=== PATIENT | male | born 1930 | race Caucasian/White ===

== ENCOUNTER → 2016-12-17 | Outpatient (CLI) | payer MEDICARE ==
[~2016-12-17] MED LIST: ACET325T PO; ALBUAER3 INH; ASPI325T PO; CALC500C16 CHEW; CARV6.25 PO; COMMODE 3-IN-11 MIS; COZA50TA PO; ENOX40P SQ; FERR324T4 PO; FERR325T PO; FEXO1TAB41 PO; FOLI1TAB4 PO; FOLI1TAB6 PO; GUAI1TAB18; GUAI400T8; GUAI600T34 PO; HYDR-3516 PO; IPRASOL NEB; LORA-520 PO; MUCI600T PO; NORC5TAB PO; OXYGENTANK NAS.CANULA; POLY17S PO; SPIRCAP INH; SYMB80AE INH; TAMS5CAP PO; TYLE325T PO; VENTAER INH; VITA100T PO; VITA20004 PO; WALKER WHEELS/F1 MIS; WHEEMIS3
[2016-12-17 16:28] LABS: AUTOMATED NEUTROPHIL # 1.3 TH/MM3 (1.8-7.7); BASOPHIL % 0.6 % (0.0-2.0); EOSINOPHIL # 0.1 TH/MM3 (0-0.4); EOSINOPHIL % 3.3 % (0.0-4.0); HEMATOCRIT 31.9 % (39.0-51.0); LYMPH % 40.9 % (9.0-44.0); LYMPHOCYTE # 1.3 TH/MM3 (1.0-4.8); MEAN CELL VOLUME 103.8 FL (80.0-100.0); MEAN CORPUSCULAR HEMOGLOBIN 35.4 PG (27.0-34.0); MEAN CORPUSCULAR HGB CONC 34.1 % (32.0-36.0); MONO % 16.2 % (0.0-8.0); PLATELET COUNT 70 TH/MM3 (150-450); RED BLOOD COUNT 3.07 MIL/MM3 (4.50-5.90); RED CELL DISTRIBUTION WIDTH 14.9 % (11.6-17.2); WHITE BLOOD COUNT 3.2 TH/MM3 (4.0-11.0)
[2016-12-17 16:30] LABS: HEMO FLAGS AUTO DIFF
[2016-12-17 17:04] LABS: ACANTHOCYTES OCC (NORMAL); OVALOCYTES 1+ (NORMAL); PLATELET ESTIMATE SMEAR LOW (NORMAL); PLATELET MORPHOLOGY NORMAL (NORMAL); SCAN/DIFF AUTO DIFF CONFIRMED
== END ==
LOC: PLAB 12:09
PROVIDERS: ATTEND Family Medicine
DX: D51.9 Vitamin B12 deficiency anemia, unspecified (principal)
CPT/HCPCS: 36415; 82607; 85025

== ENCOUNTER → 2017-03-17 | Outpatient (CLI) | payer MEDICARE ==
[2017-03-17 15:36] LABS: HEMATOCRIT 32.4 % (39.0-51.0); MEAN CELL VOLUME 105.3 FL (80.0-100.0); MEAN CORPUSCULAR HEMOGLOBIN 34.4 PG (27.0-34.0); MEAN CORPUSCULAR HGB CONC 32.7 % (32.0-36.0); PLATELET COUNT 72 TH/MM3 (150-450); RED BLOOD COUNT 3.08 MIL/MM3 (4.50-5.90); RED CELL DISTRIBUTION WIDTH 14.2 % (11.6-17.2); WHITE BLOOD COUNT 4.7 TH/MM3 (4.0-11.0)
[2017-03-17 15:57] LABS: REVIEW FLAG FINAL
== END ==
LOC: PLAB 14:02
PROVIDERS: ATTEND Family Medicine
DX: D64.9 Anemia, unspecified (principal)
CPT/HCPCS: 36415; 85027; G0439

== ENCOUNTER 2017-04-25 08:56 | Emergency (ER) | payer MEDICARE ==
[2017-04-25] VITALS (7 sets, daily range): BP systolic 129–150; BP diastolic 58–68; PULSE 65–80; RESP 17–27; TEMP 97.6; O2SAT 93–100
[~2017-04-25] VITALS: Ht 185.4 cm; Wt 62.0 kg
[~2017-04-25 08:56] MED LIST changes: -COMMODE 3-IN-11 MIS; -ENOX40P SQ; -FERR324T4 PO; -FOLI1TAB6 PO; -GUAI1TAB18; -GUAI400T8; -GUAI600T34 PO; -HYDR-3516 PO; -NORC5TAB PO; -OXYGENTANK NAS.CANULA; -TYLE325T PO; -VITA100T PO; -WALKER WHEELS/F1 MIS; -WHEEMIS3
[2017-04-25] MEDS ORDERED: GUAI400T8 (09:27)
[2017-04-25] MEDS ORDERED: TYLE325T PO (09:27)
[2017-04-25] MEDS ORDERED: GUAI1TAB18 (09:27)
[2017-04-25] MEDS ORDERED: GUAI600T34 PO (09:27)
[2017-04-25] MEDS ORDERED: FOLI1TAB6 PO (09:27)
[2017-04-25] MEDS ORDERED: FERR324T4 PO (09:28)
[2017-04-25] MEDS ORDERED: ONDANSETRON HCL 4 MG/2 ML VIAL IVP ONE (09:30)
[2017-04-25] MEDS ORDERED: SODIUM CHLORIDE 0.9% FLUSH 10 ML FLUSH IVF PRN (09:30)
[2017-04-25] MEDS ORDERED: SODIUM CHLORID 0.9% 500 ML INJ 500 ML IV ONE (09:30)
[2017-04-25 09:43] LABS: AUTOMATED NEUTROPHIL # 1.3 TH/MM3 (1.8-7.7); BASOPHIL % 0.5 % (0.0-2.0); EOSINOPHIL # 0.1 TH/MM3 (0-0.4); EOSINOPHIL % 2.5 % (0.0-4.0); HEMATOCRIT 30.4 % (39.0-51.0); LYMPH % 35.4 % (9.0-44.0); MEAN CELL VOLUME 103.7 FL (80.0-100.0); MEAN CORPUSCULAR HEMOGLOBIN 34.8 PG (27.0-34.0); MEAN CORPUSCULAR HGB CONC 33.6 % (32.0-36.0); MONO % 17.9 % (0.0-8.0); NEUT % 43.7 % (16.0-70.0); PLATELET COUNT 61 TH/MM3 (150-450); RED BLOOD COUNT 2.94 MIL/MM3 (4.50-5.90); RED CELL DISTRIBUTION WIDTH 14.3 % (11.6-17.2); WHITE BLOOD COUNT 2.9 TH/MM3 (4.0-11.0)
[2017-04-25 09:47] LABS: HEMO FLAGS AUTO DIFF
--- NOTE | 2017-04-25 09:59 | PD ---
HPI Chief Complaint: General Weakness Time Seen by Provider: 09:15 Travel History International Travel<30 days: No Contact w/Intl Traveler<30days: No Traveled to known affect area: No History of Present Illness HPI The patient is a 86-year-old male who presents emergency department for feeling "woozy ". The patient was at an AA meeting earlier today when he suddenly fell "woozy ", walked outside and felt somewhat lightheaded. The patient states he then sat down but his symptoms persisted, therefore, EMS was notified and transfer the patient to the emergency department. The patient also states he had mild nausea but denied any chest pain, shortness breath, vomiting, or abdominal pain. He denied any associated diaphoresis. The patient symptoms have mostly resolved since she arrived in the emergency department except for mild nausea. Symptoms are moderate, there are no current alleviating factors, his symptoms of mostly self alleviated. PFSH Past Medical History Cancer: No Cardiovascular Problems: Yes Congestive Heart Failure: Yes COPD: Yes Diabetes: No Diminished Hearing: No Endocrine: No Gastrointestinal Disorders: Yes ("CHRONIC CONSTIPATION) Genitourinary: Yes (PROSTATE) Hepatitis: No Hiatal Hernia: No Hypertension: Yes Immune Disorder: No Implanted Vascular Access Dvce: No Musculoskeletal: No Neurologic: No Psychiatric: No Reproductive: No Respiratory: Yes Thyroid Disease: No PNEUMOCCOCAL Vaccine (Year): 1 Past Surgical History Abdominal Surgery: Yes (HERNIA REPAIR X2) Eye Surgery: Yes (BILATERAL CATARACTS) Genitourinary Surgery: Yes (TURP) Joint Replacement: Yes (hip replasement right ) Oral Surgery: Yes (tonsillectomy) Pacemaker: Yes Tonsillectomy: Yes Other Surgery: Yes Social History Alcohol Use: No Tobacco Use: Yes Substance Use: No Allergies-Medications (Allergen,Severity, Reaction): Coded Allergies: No Known Allergies (Verified , 04/25/17) Reported Meds & Prescriptions Reported Meds & Active Scripts Active Vitamin B-12 ER (Cyanocobalamin) 2,000 Mcg Tab 2,000 Mcg PO DAILY Take one tab daily 30 minutes before a meal Flomax (Tamsulosin HCl) 0.4 Mg Cap 0.4 Mg PO BID 30 Days Polyethylene Glycol 3350 Powder (Polyethylene Glycol) 17 Gm Pow 17 Gm PO DAILY 14 Days Cozaar (Losartan Potassium) 50 Mg Tab 50 Mg PO BID 30 Days Duoneb (Ipratropium-Albuterol Neb) 0.5-2.5 Mg/3 Ml Neb 1 Ampule NEB Q6HR NEB PRN 30 Days Coreg (Carvedilol) 6.25 Mg Tab 6.25 Mg PO BID 30 Days Calcium Carbonate (Antacid) 500 Mg Chew 500 Mg CHEW Q12HR 30 Days Symbicort Inh (Budesonide/Formoterol Fumarate) 80-4.5 Mcg/Act Aero 2 Puff INH BID 30 Days Ventolin Hfa 18 GM Inh (Albuterol Sulfate) 90 Mcg/Act Aer 2 Puff INH QID 30 Days Reported Ferrous Sulfate DR (Ferrous Sulfate) 324 Mg Tabdr 324 Mg PO DAILY Guaifenesin ER (Guaifenesin) 600 Mg Tab.er.12h 1 Tab PO BID Folic Acid 1 Mg Tablet 1 Tab PO DAILY Tylenol (Acetaminophen) 325 Mg Tab 325 Mg PO Q6H PRN Proair Hfa 8.5 GM Inh (Albuterol Sulfate) 90 Mcg/Act Aer 2 Puff INH Q4-6H PRN 108 mcg/actuation Allergy (Loratadine) 10 Mg Tab 10 Mg PO DIRECTED Review of Systems Except as stated in HPI: all other systems reviewed are Neg General / Constitutional: No: Fever HENT: Positive: Lightheadedness Cardiovascular: No: Chest Pain or Discomfort, Palpitations, Irregular Rhythm, Tachycardia, Diaphoresis, Syncope Respiratory: No: Shortness of Breath Gastrointestinal: Positive: Nausea, No: Vomiting, Abdominal Pain Musculoskeletal: No: Weakness Neurologic: No: Weakness, Headache, Change in Mentation Physical Exam Narrative GENERAL: Awake, alert, very pleasant 86-year-old male who appears his stated age and is in no acute respiratory distress. SKIN: Focused skin assessment warm/dry. HEAD: Atraumatic. Normocephalic. EYES: Pupils equal and round. No scleral icterus. No injection or drainage. ENT: No nasal bleeding or discharge. Mucous membranes pink and moist. NECK: Trachea midline. No JVD. CARDIOVASCULAR: Regular rate and rhythm. No murmur appreciated. Heart rate in the 60s. Pacemaker in place left chest wall. RESPIRATORY: No accessory muscle use. Clear to auscultation. Breath sounds equal bilaterally. GASTROINTESTINAL: Abdomen soft, non-tender, nondistended. No rebound tenderness. MUSCULOSKELETAL: No obvious deformities. No clubbing. No cyanosis. No edema. NEUROLOGICAL: Awake and alert. No obvious cranial nerve deficits. Motor grossly within normal limits. Normal speech. PSYCHIATRIC: Appropriate mood and affect; insight and judgment normal. Data Data Last Documented VS Vital Signs Date Time Temp Pulse Resp B/P Pulse Ox O2 Delivery O2 Flow Rate FiO2 04/25/17 09:34 98 Nasal Cannula 2 04/25/17 09:30 65 19 70 24 77 27 04/25/17 09:04 97.6 Orders Complete Blood Count With Diff (04/25/17:24) Comprehensive Metabolic Panel (04/25/17 09:24) Magnesium (Mg) (04/25/17:24) Ckmb (Isoenzyme) Profile (04/25/17:24) Troponin I (04/25/17:24) Ecg Monitoring (04/25/17:24) Iv Access Insert/Monitor (04/25/17:24) Oximetry (04/25/17 09:24) Ondansetron Inj (Zofran Inj) (04/25/17 09:30) Sodium Chloride 0.9% Flush (Ns Flush) (04/25/17 09:30) Orthostatic Vital Signs (04/25/17 09:24) Sodium Chlorid 0.9% 500 Ml Inj (Ns 500 M (04/25/17 09:30) Labs Laboratory Tests Test 04/25/17 09:20 White Blood Count 2.9 TH/MM3 Red Blood Count 2.94 MIL/MM3 Hemoglobin 10.2 GM/DL Hematocrit 30.4 % Mean Corpuscular Volume 103.7 FL Mean Corpuscular Hemoglobin 34.8 PG Mean Corpuscular Hemoglobin 33.6 % Concent Red Cell Distribution Width 14.3 % Platelet Count 61 TH/MM3 Mean Platelet Volume 6.9 FL Neutrophils (%) (Auto) 43.7 % Lymphocytes (%) (Auto) 35.4 % Monocytes (%) (Auto) 17.9 % Eosinophils (%) (Auto) 2.5 % Basophils (%) (Auto) 0.5 % Neutrophils # (Auto) 1.3 TH/MM3 Lymphocytes # (Auto) 1.0 TH/MM3 Monocytes # (Auto) 0.5 TH/MM3 Eosinophils # (Auto) 0.1 TH/MM3 Basophils # (Auto) 0.0 TH/MM3 CBC Comment AUTO DIFF Differential Comment AUTO DIFF CONFIRMED Sodium Level 132 MEQ/L Potassium Level 4.5 MEQ/L Chloride Level 96 MEQ/L Carbon Dioxide Level 32.0 MEQ/L Anion Gap 4 MEQ/L Blood Urea Nitrogen 14 MG/DL Creatinine 0.84 MG/DL Estimat Glomerular Filtration 87 ML/MIN Rate Random Glucose 115 MG/DL Calcium Level 8.1 MG/DL Magnesium Level 2.3 MG/DL Total Bilirubin 0.5 MG/DL Aspartate Amino Transf 17 U/L (AST/SGOT) Alanine Aminotransferase 15 U/L (ALT/SGPT) Alkaline Phosphatase 53 U/L Total Creatine Kinase 61 U/L Troponin I 0.02 NG/ML Total Protein 6.1 GM/DL Albumin 3.0 GM/DL MDM Medical Decision Making Medical Screen Exam Complete: Yes Emergency Medical Condition: Yes Medical Record Reviewed: Yes Interpretation(s) EKG reveals electronic atrial pacemaker an electronic ventricular pacemaker paced rhythm. Laboratory Tests Test 04/25/17 09:20 White Blood Count 2.9 TH/MM3 Red Blood Count 2.94 MIL/MM3 Hemoglobin 10.2 GM/DL Hematocrit 30.4 % Mean Corpuscular Volume 103.7 FL Mean Corpuscular Hemoglobin 34.8 PG Mean Corpuscular Hemoglobin 33.6 % Concent Red Cell Distribution Width 14.3 % Platelet Count 61 TH/MM3 Mean Platelet Volume 6.9 FL Neutrophils (%) (Auto) 43.7 % Lymphocytes (%) (Auto) 35.4 % Monocytes (%) (Auto) 17.9 % Eosinophils (%) (Auto) 2.5 % Basophils (%) (Auto) 0.5 % Neutrophils # (Auto) 1.3 TH/MM3 Lymphocytes # (Auto) 1.0 TH/MM3 Monocytes # (Auto) 0.5 TH/MM3 Eosinophils # (Auto) 0.1 TH/MM3 Basophils # (Auto) 0.0 TH/MM3 CBC Comment AUTO DIFF Differential Comment AUTO DIFF CONFIRMED Sodium Level 132 MEQ/L Potassium Level 4.5 MEQ/L Chloride Level 96 MEQ/L Carbon Dioxide Level 32.0 MEQ/L Anion Gap 4 MEQ/L Blood Urea Nitrogen 14 MG/DL Creatinine 0.84 MG/DL Estimat Glomerular Filtration 87 ML/MIN Rate Random Glucose 115 MG/DL Calcium Level 8.1 MG/DL Magnesium Level 2.3 MG/DL Total Bilirubin 0.5 MG/DL Aspartate Amino Transf 17 U/L (AST/SGOT) Alanine Aminotransferase 15 U/L (ALT/SGPT) Alkaline Phosphatase 53 U/L Total Creatine Kinase 61 U/L Troponin I 0.02 NG/ML Total Protein 6.1 GM/DL Albumin 3.0 GM/DL Differential Diagnosis Differential diagnosis includes dehydration, vasovagal episode, left foot abnormality, acute coronary syndrome, vertigo, arrhythmia. Narrative Course IV was established, labs are drawn and sent, and the patient was placed on cardiac telemetry monitoring and continuous pulse oximetry monitoring. EKG was ordered and interpreted. Orthostatic vital signs were obtained. The patient was administered IV fluids. The patient has pancytopenia with a white count 0.9 , hemoglobin and the 10 range and platelets of 61. I reviewed the patient's EMR , he has a history of similar labs in the past, this appears chronic and not acute. The patient has seen a captain's assistant/oncologist, Dr. Rock in the past and has a history of B-12 deficiency as well as transient leukopenia and chronic anemia and thrombocytopenia. Laboratory evaluation otherwise is unremarkable. The patient was reevaluated at 10:50 AM. The patient's symptoms had resolved. Friends in the room stated that when EMS first arrived the patient's systolic blood pressure was in the 80s, his systolic pressure is now on the 130s and he has no symptoms. Therefore, the patient was given a trial of ambulation. The patient was able to ambulate without difficulty. He will be provided a copy of his labs and is advised to follow-up with his primary physician, Dr. Julissa Alcala, this week. Diagnosis Primary Impression: Pre-syncope Additional Impression: Pancytopenia Additional Instructions: Please provide a patient a copy of his labs at discharge. Follow-up with your primary physician. Return if symptoms worsen or progress. Med/Other Pt SpecificInfo: No Change to Meds Disposition: 01 DISCHARGE HOME Condition: Stable Carlos Be MD Apr 25, 2017 09:59
[2017-04-25 10:04] LABS: ALT (GPT) 15 U/L (12-78); ANION GAP 4 MEQ/L (5-15); AST (GOT) 17 U/L (15-37); BLOOD UREA NITROGEN 14 MG/DL (7-18); CHLORIDE 96 MEQ/L (98-107); GLOMERULAR FILTRATION RATE 87 ML/MIN (>89); MAGNESIUM 2.3 MG/DL (1.5-2.5); POTASSIUM 4.5 MEQ/L (3.5-5.1); SODIUM (NA) 132 MEQ/L (136-145)
[2017-04-25 10:08] LABS: ALKALINE PHOSPHATASE 53 U/L (45-117); TOTAL BILIRUBIN ADULT 0.5 MG/DL (0.2-1.0)
[2017-04-25 10:17] LABS: SCAN/DIFF AUTO DIFF CONFIRMED
[2017-04-25 10:35] LABS: CREATINE KINASE 61 U/L (39-308)
--- NOTE | 2017-04-25 13:00 | EKG ---
Date Performed: 04/25/2017 Time Performed: 09:08:10 PTAGE: 86 years EKG: ELECTRONIC ATRIAL PACEMAKER ELECTRONIC VENTRICULAR PACEMAKER ABNORMAL RHYTHM ECG INTERPRETA TION BASED ON A DEFAULT AGE OF 40 YEARS PREVIOUS TRACING : 09/30/2016 20.50 compared to the previous EKG premature ventricular c omplexes new DOCTOR: Fam Farmer Interpretating Date/Time 04/25/2017 12:59:00
== END 2017-04-25 11:45 | disposition home or self-care (01) ==
LOC: NEPE 08:56
DX: R55 Syncope and collapse (principal); D61.818 Other pancytopenia; I10 Essential (primary) hypertension; I50.9 Heart failure, unspecified; J44.9 Chronic obstructive pulmonary disease, unspecified; Z72.0 Tobacco use
CPT/HCPCS: 80053; 82550; 83735; 84484; 85025; 93005; 96361; 96374; 99285; J2405; J7040

== ENCOUNTER 2017-05-16 07:37 | Emergency (ER) | payer MEDICARE ==
[~2017-05-16] VITALS: Ht 185.4 cm; Wt 60.6 kg
[~2017-05-16 07:37] MED LIST changes: -ACET325T PO; -ASPI325T PO; +FERR324T4 PO; -FERR325T PO; -FEXO1TAB41 PO; -FOLI1TAB4 PO; +FOLI1TAB6 PO; +GUAI600T34 PO; -MUCI600T PO; -SPIRCAP INH; +TYLE325T PO
[2017-05-16 07:48] VITALS: BP 126/72; PULSE 75; RESP 16; TEMP 97.6; O2SAT 100
[2017-05-16] MEDS ORDERED: CARV3.12 PO (08:02)
[2017-05-16] MEDS ORDERED: LOSA25TA PO (08:02)
[2017-05-16 08:09] LABS: GLUCOSE,URINE NEG (NEG); KETONE, URINE NEG (NEG); NITRITE,URINE NEG (NEG)
--- NOTE | 2017-05-16 08:09 | PD ---
HPI Chief Complaint: Complaint Time Seen by Provider: 08:01 Travel History International Travel<30 days: No Contact w/Intl Traveler<30days: No Traveled to known affect area: No History of Present Illness HPI 86yo M with PMH of COPD, pacemaker, BPH s/p TURP presents to the ED with c/o dysuria and urinary frequency for 3 days. Denies any fever, hematuria, n/v, abdominal pain, penile discharge, rash, chest pain, sob, focal weakness or numbness. Pt has a urologist he follows with. PFSH Past Medical History Cancer: No Cardiovascular Problems: Yes (pacemaker, on b/p meds) Congestive Heart Failure: Yes COPD: Yes Diabetes: No Diminished Hearing: No Endocrine: No Gastrointestinal Disorders: Yes ("CHRONIC CONSTIPATION) Genitourinary: Yes (PROSTATE) Hepatitis: No Hiatal Hernia: No Hypertension: Yes Immune Disorder: No Implanted Vascular Access Dvce: No Musculoskeletal: No Neurologic: No Psychiatric: No Reproductive: No Respiratory: Yes (copd ) Thyroid Disease: No PNEUMOCCOCAL Vaccine (Year): 1 Past Surgical History Abdominal Surgery: Yes (HERNIA REPAIR X2) Eye Surgery: Yes (BILATERAL CATARACTS) Genitourinary Surgery: Yes (TURP) Joint Replacement: Yes (hip replacement right ) Oral Surgery: Yes (tonsillectomy) Pacemaker: Yes Tonsillectomy: Yes Other Surgery: Yes Social History Alcohol Use: No Tobacco Use: No Substance Use: No Allergies-Medications (Allergen,Severity, Reaction): Coded Allergies: No Known Allergies (Verified , 05/16/17) Reported Meds & Prescriptions Reported Meds & Active Scripts Active Vitamin B-12 ER (Cyanocobalamin) 2,000 Mcg Tab 2,000 Mcg PO DAILY Take one tab daily 30 minutes before a meal Flomax (Tamsulosin HCl) 0.4 Mg Cap 0.4 Mg PO BID 30 Days Polyethylene Glycol 3350 Powder (Polyethylene Glycol) 17 Gm Pow 17 Gm PO DAILY 14 Days Duoneb (Ipratropium-Albuterol Neb) 0.5-2.5 Mg/3 Ml Neb 1 Ampule NEB Q6HR NEB PRN 30 Days Calcium Carbonate (Antacid) 500 Mg Chew 500 Mg CHEW Q12HR 30 Days Symbicort Inh (Budesonide/Formoterol Fumarate) 80-4.5 Mcg/Act Aero 2 Puff INH BID 30 Days Ventolin Hfa 18 GM Inh (Albuterol Sulfate) 90 Mcg/Act Aer 2 Puff INH QID 30 Days Reported Carvedilol 3.125 Mg Tab 3.125 Mg PO BID Losartan (Losartan Potassium) 25 Mg Tab 25 Mg PO BID Ferrous Sulfate DR (Ferrous Sulfate) 324 Mg Tabdr 324 Mg PO DAILY Guaifenesin ER (Guaifenesin) 600 Mg Tab.er.12h 1 Tab PO BID Folic Acid 1 Mg Tablet 1 Tab PO DAILY Proair Hfa 8.5 GM Inh (Albuterol Sulfate) 90 Mcg/Act Aer 2 Puff INH Q4-6H PRN 108 mcg/actuation Allergy (Loratadine) 10 Mg Tab 10 Mg PO DIRECTED Review of Systems Except as stated in HPI: all other systems reviewed are Neg Physical Exam Narrative GENERAL: 86yo M not in distress. SKIN: Focused skin assessment warm/dry. HEAD: Atraumatic. Normocephalic. EYES: Pupils equal and round. No scleral icterus. No injection or drainage. ENT: No nasal bleeding or discharge. Mucous membranes pink and moist. NECK: Trachea midline. No JVD. CARDIOVASCULAR: Regular rate and rhythm. No murmur appreciated. RESPIRATORY: No accessory muscle use. Clear to auscultation. Breath sounds equal bilaterally. GASTROINTESTINAL: Abdomen soft, non-tender, nondistended. MUSCULOSKELETAL: No obvious deformities. No clubbing. No cyanosis. No edema. NEUROLOGICAL: Awake and alert. No obvious cranial nerve deficits. Motor grossly within normal limits. Normal speech. PSYCHIATRIC: Appropriate mood and affect; insight and judgment normal. Data Data Last Documented VS Vital Signs Date Time Temp Pulse Resp B/P Pulse Ox O2 Delivery O2 Flow Rate FiO2 05/16/17 07:48 97.6 75 16 126/72 100 Orders Urinalysis - C+S If Indicated (05/16/17 08:03) Labs Laboratory Tests Test 05/16/17 07:50 Urine Collection Type CLEAN CATCH Urine Color YELLOW Urine Turbidity CLEAR Urine pH 6.0 Urine Specific [place] 1.013 Urine Protein NEG mg/dL Urine Glucose (UA) NEG mg/dL Urine Ketones NEG mg/dL Urine Occult Blood MOD Urine Nitrite NEG Urine Bilirubin NEG Urine Leukocyte Esterase NEG Urine RBC 20-24 /hpf Urine Squamous Epithelial 0-5 /hpf Cells Microscopic Urinalysis Comment CULT NOT INDICATED Urine Collection Time 07:50 [facility] Medical Decision Making Medical Screen Exam Complete: Yes Emergency Medical Condition: Yes Differential Diagnosis UTI vs. prostatitis Narrative Course 86yo M with dysuria and urinary frequency for 3 days. No systemic complaints. Pt is well appearing. VS stable. UA showed moderate blood. Urine RBC 20-24. No leukocyte or nitrite. However, pt is symptomatic so cover pt with antibiotics and have pt follow up with his urologist for hematuria. Diagnosis Primary Impression: Hematuria Qualified Code: R31.9 - Hematuria, unspecified type Patient Instructions: General Instructions Departure Forms: Tests/Procedures Additional Instructions: Please follow up with your urologist regarding blood in your urine seen on urinalysis. Return to the ED if symptoms worsen. Med/Other Pt SpecificInfo: Prescription(s) given Scripts Cephalexin (Keflex)500 Mg Azp307 Mg PO Q12H 5 Days Ref 0 Prov:Christie Santos DO 05/16/17 Disposition: 01 DISCHARGE HOME Condition: Stable Christie Santos DO May 16, 2017 08:09
[2017-05-16 08:14] LABS: BLOOD, URINE MOD (NEG)
[2017-05-16 08:15] LABS: METHOD OF COLLECTION CLEAN CATCH; URINE COLOR YELLOW (YELLW/STRAW)
[2017-05-16 08:16] LABS: COMMENT (UR) CULT NOT INDICATED; CULTURE IF INDICATED CULT NOT INDICATED; SQUAMOUS EPITHELIAL CELL URINE 0-5 /hpf (0-5)
[2017-05-16] MEDS ORDERED: CEPH-460 PO (08:44)
[2017-05-26] MEDS ORDERED: TAMS5CAP PO ×2 (12:27→12:33)
== END 2017-05-16 08:53 | disposition home or self-care (01) ==
LOC: PHED 07:37
DX: R31.9 Hematuria, unspecified (principal)
CPT/HCPCS: 81001; 99283

== ENCOUNTER → 2017-12-23 | Outpatient (CLI) | payer MEDICARE ==
[~2017-12-23] MED LIST changes: +CARV3.12 PO; -CARV6.25 PO; -COZA50TA PO; +LOSA25TA PO; +MEDR4PAK PO; +TRAM50TA PO; -TYLE325T PO
[2017-12-23 13:52] LABS: CREATININE 0.74 MG/DL (0.60-1.30)
== END ==
LOC: PLAB 10:07
DX: Z01.812 Encounter for preprocedural laboratory examination (principal)
CPT/HCPCS: 36415; 82565; 84520

== ENCOUNTER 2018-03-16 13:11 | Inpatient (IN) | payer MEDICARE ==
[2018-03-16] VITALS (13 sets, daily range): BP systolic 71–170; BP diastolic 42–67; PULSE 60–103; RESP 16–20; TEMP 97.1; O2SAT 95–100
[~2018-03-16] VITALS: Ht 185.4 cm; Wt 56.9 kg
[2018-03-16] MEDS ORDERED: SODIUM CHLORIDE 0.9% FLUSH 10 ML FLUSH IV FLUSH PRN ×2 (13:45→15:45)
[2018-03-16] MEDS ORDERED: methylPREDNISolone SOD SUCC 125 MG/2 ML VIAL IV PUSH ONE (13:45)
[2018-03-16] MEDS ORDERED: OMEP20TA93 PO (13:55)
[2018-03-16] MEDS ORDERED: MEGE40TA PO (13:55)
[2018-03-16] MEDS ORDERED: FAMO1TAB37 PO (13:55)
[2018-03-16] MEDS ORDERED: BETH25TA2 PO (13:55)
[2018-03-16] MEDS: RESP: ALBUTEROL 2.5 MG/IPRATROPIUM 0.5 MG NEB (SCH) INH (14:02)
[2018-03-16 14:27] LABS: AUTOMATED NEUTROPHIL # 1.5 TH/MM3 (1.8-7.7); BASOPHIL % 0.4 % (0.0-2.0); EOSINOPHIL # 0.1 TH/MM3 (0-0.4); EOSINOPHIL % 1.6 % (0.0-4.0); HEMATOCRIT 29.3 % (39.0-51.0); HEMOGLOBIN 9.9 GM/DL (13.0-17.0); LYMPH % 36.7 % (9.0-44.0); LYMPHOCYTE # 1.2 TH/MM3 (1.0-4.8); MEAN CORPUSCULAR HEMOGLOBIN 36.7 PG (27.0-34.0); MEAN PLATELET VOLUME 7.1 FL (7.0-11.0); MONO % 13.2 % (0.0-8.0); MONOCYTE # 0.4 TH/MM3 (0-0.9); NEUT % 48.1 % (16.0-70.0); PLATELET COUNT 66 TH/MM3 (150-450); RED BLOOD COUNT 2.71 MIL/MM3 (4.50-5.90); RED CELL DISTRIBUTION WIDTH 15.1 % (11.6-17.2); WHITE BLOOD COUNT 3.2 TH/MM3 (4.0-11.0)
[2018-03-16 14:39] LABS: CHLORIDE 102 MEQ/L (98-107); SODIUM (NA) 138 MEQ/L (136-145)
[2018-03-16 14:42] LABS: CALCIUM 8.6 MG/DL (8.5-10.1)
[2018-03-16 14:43] LABS: ALBUMIN 3.2 GM/DL (3.4-5.0); BICARBONATE 33.4 MEQ/L (21.0-32.0); BLOOD UREA NITROGEN 18 MG/DL (7-18); GLUCOSE,RANDOM 123 MG/DL (74-106)
[2018-03-16 14:46] LABS: ALT (GPT) 20 U/L (12-78); AST (GOT) 16 U/L (15-37); CREATININE 0.75 MG/DL (0.60-1.30); GLOMERULAR FILTRATION RATE 99 ML/MIN (>89)
[2018-03-16 14:47] LABS: TOTAL BILIRUBIN ADULT 0.4 MG/DL (0.2-1.0)
[2018-03-16 14:48] LABS: TOTAL PROTEIN 6.7 GM/DL (6.4-8.2)
[2018-03-16 14:49] LABS: ALKALINE PHOSPHATASE 47 U/L (45-117)
[2018-03-16] MEDS ORDERED: IOHEXOL 350 MG/ML 10 ML VIAL (for RAD DIAG) IVCONTRAST ONE (15:09)
--- NOTE | 2018-03-16 15:27 | RADRPT ---
EXAM DATE/TIME: 03/16/2018 15:02 [facility] COMPARISON: No previous studies available for comparison. INDICATIONS : Constipation for three days. Lower abdominal pain. IV CONTRAST: 85 cc Omnipaque 350 (iohexol) IV ORAL CONTRAST: No oral contrast ingested. RADIATION DOSE: 6.23 CTDIvol (mGy) MEDICAL HISTORY : Cardiovascular disease. Congestive heart failure. Chronic obstructive pulmonary disease.Hypertension. SURGICAL HISTORY : Pacemaker. Hernia repair. TURP. Hip replacement. ENCOUNTER: Initial ACUITY: 3 days PAIN SCALE: 5/10 LOCATION: lower quadrant TECHNIQUE: Volumetric scanning of the abdomen and pelvis was performed. Using automated exposure control and ad justment of the mA and/or kV according to patient size, radiation dose was kept as low as reasonably achievable to obtain optimal diagnostic quality images. DICOM format image data is available electro nically for review and comparison. FINDINGS: LOWER LUNGS: Prominent central other emphysema at the lung bases. LIVER: Homogeneous density without lesion. There is no dilation of the biliary tree. No calcified gallston es. SPLEEN: Normal size without lesion. PANCREAS: Within normal limits. KIDNEYS: Kidneys are symmetrical in size and demonstrate symmetric enhancement. Calcifications in the renal pe lves that are likely vascular. There are small subcentimeter hypodense cystic lesions which are to sm all to fully characterize bilaterally. ADRENAL GLANDS: Within normal limits. VASCULAR: Diffuse aphthous-like calcifications of the abdominal aorta with mild ectasia of the distal aorta brittney suring up to 2.6 cm. 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 Remainin g iliac arteries are diffusely calcified. BOWEL/MESENTERY: There is severe fecal impaction in the rectum with large amount of stool in the sigmoid and distal de scending colon. There are multiple loops of minimally prominent fluid filled ileum small bowel withou t a definite transition point. More proximal jejunal loops are not significantly dilated. No pneumato sis or free air. ABDOMINAL WALL: Within normal limits. RETROPERITONEUM: There is no lymphadenopathy. BLADDER: Likely completely decompressed. REPRODUCTIVE: Within normal limits. INGUINAL: There is no lymphadenopathy or hernia. MUSCULOSKELETAL: Degenerative changes of the lumbar spine. Fixation hardware in the right femoral neck. CONCLUSION: 1. Severe fecal impaction in the rectum with large amount stool in the sigmoid and distal descending colon consistent with severe constipation. 2. Several loops of minimally prominent fluid filled ileum without transition point most consistent w ith adynamic ileus. 3. 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 4. Additional ancillary findings, as above. Andres Hess MD on March 16, 2018 at 15:17 Board Certified Radiologist. This report was verified electronically.
[2018-03-16] MEDS ORDERED: NALOXONE HCL 0.4 MG/ML AMP IV PUSH PRN (15:45)
[2018-03-16] MEDS ORDERED: ONDANSETRON HCL 4 MG/2 ML VIAL IVP PRN (15:45)
[2018-03-16] MEDS ORDERED: ACETAMINOPHEN 325 MG TAB PO PRN ×2 (15:45)
[2018-03-16] MEDS ORDERED: ACETAMINOPHEN 500 MG CPLT PO ONE (15:45)
--- NOTE | 2018-03-16 15:55 | PD ---
HPI Chief Complaint: GI Complaint Time Seen by Provider: 13:24 Travel History International Travel<30 days: No Contact w/Intl Traveler<30days: No Traveled to known affect area: No History of Present Illness HPI This is an 87-year-old male who has a history of COPD who presents to the emergency department with constipation that has been going on for 3 days, associated with abdominal cramping, constant, moderate severity, nonradiating. His abdominal pain has been increasing. He has not had any vomiting. He also has been increasingly short of breath over the past 2 days, and has been using his oxygen more frequently. He normally uses 2 L of oxygen at night. He has a history of COPD. PFSH Past Medical History Cancer: No Cardiovascular Problems: Yes (pacemaker, on b/p meds) Congestive Heart Failure: Yes COPD: Yes Diabetes: No Diminished Hearing: No Endocrine: No Gastrointestinal Disorders: Yes ("CHRONIC CONSTIPATION) Genitourinary: Yes (PROSTATE) Hepatitis: No Hiatal Hernia: No Hypertension: Yes Immune Disorder: No Implanted Vascular Access Dvce: No Musculoskeletal: No Neurologic: No Psychiatric: No Reproductive: No Respiratory: Yes (copd ) Thyroid Disease: No Tetanus Vaccination: Unknown Influenza Vaccination: Yes PNEUMOCCOCAL Vaccine (Year): 1 ?: Not Past Surgical History Abdominal Surgery: Yes (HERNIA REPAIR X2) Eye Surgery: Yes (BILATERAL CATARACTS) Genitourinary Surgery: Yes (TURP) Joint Replacement: Yes (hip replacement right ) Oral Surgery: Yes (tonsillectomy) Pacemaker: Yes Tonsillectomy: Yes Other Surgery: Yes Social History Alcohol Use: No Tobacco Use: No Substance Use: No Allergies-Medications (Allergen,Severity, Reaction): Coded Allergies: No Known Allergies (Verified Adverse Reaction, Unknown, 03/16/18) Reported Meds & Prescriptions Reported Meds & Active Scripts Active Flomax (Tamsulosin HCl) 0.4 Mg Cap 0.8 Mg PO DAILY@0600 30 Days Take after a meal Vitamin B-12 ER (Cyanocobalamin) 2,000 Mcg Tab 2,000 Mcg PO DAILY Take one tab daily 30 minutes before a meal Polyethylene Glycol 3350 Powder (Polyethylene Glycol) 17 Gm Pow 17 Gm PO DAILY 14 Days Duoneb (Ipratropium-Albuterol Neb) 0.5-2.5 Mg/3 Ml Neb 1 Ampule NEB Q6HR NEB PRN 30 Days Calcium Carbonate (Antacid) 500 Mg Chew 500 Mg CHEW Q12HR 30 Days Symbicort Inh (Budesonide/Formoterol Fumarate) 80-4.5 Mcg/Act Aero 2 Puff INH BID 30 Days Ventolin Hfa 18 GM Inh (Albuterol Sulfate) 90 Mcg/Act Aer 2 Puff INH QID 30 Days Reported Bethanechol 25 Mg Tab 25 Mg PO QID Megestrol (Megestrol Acetate) 40 Mg Tab 40 Mg PO QID Omeprazole 20 Mg Tab 20 Mg PO DAILY Pepcid (Famotidine) 20 Mg Tab 20 Mg PO DAILY Carvedilol 3.125 Mg Tab 3.125 Mg PO BID Losartan (Losartan Potassium) 25 Mg Tab 25 Mg PO BID Ferrous Sulfate DR (Ferrous Sulfate) 324 Mg Tabdr 324 Mg PO DAILY Guaifenesin ER (Guaifenesin) 600 Mg Tab.er.12h 1 Tab PO BID Folic Acid 1 Mg Tablet 1 Tab PO DAILY Proair Hfa 8.5 GM Inh (Albuterol Sulfate) 90 Mcg/Act Aer 2 Puff INH Q4-6H PRN 108 mcg/actuation Review of Systems Except as stated in HPI: all other systems reviewed are Neg Physical Exam Narrative GENERAL: Frail elderly male in no acute distress SKIN: Focused skin assessment warm and dry. HEAD: Atraumatic. Normocephalic. EYES: Pupils equal and round. No injection or drainage. ENT: Moist mucous membranes NECK: Trachea midline. CARDIOVASCULAR: Regular rate and rhythm. No murmur appreciated. RESPIRATORY: Clear to auscultation. Breath sounds equal bilaterally. GASTROINTESTINAL: Abdomen soft, abdominal distention MUSCULOSKELETAL: No obvious deformities. NEUROLOGICAL: Awake and alert. No obvious cranial nerve deficits. Moving all extremities. PSYCHIATRIC: Appropriate mood and affect; insight and judgment normal. Data Data Last Documented VS Vital Signs Date Time Temp Pulse Resp B/P (MAP) Pulse Ox O2 Delivery O2 Flow Rate FiO2 03/16/18 14:11 18 100 Nasal Cannula 2.00 03/16/18 13:15 97.1 98 170/61 (97) Orders Orders Complete Blood Count With Diff (03/16/18 13:37) Comprehensive Metabolic Panel (03/16/18 13:37) Ct Abd/Pel W Iv Contrast(Rout) (03/16/18 13:37) Iv Access Insert/Monitor (03/16/18 13:37) Ecg Monitoring (03/16/18 13:37) Oximetry (03/16/18 13:37) Sodium Chloride 0.9% Flush (Ns Flush) (03/16/18 13:45) Methylprednisolone So Succ Inj (Solumedr (03/16/18 13:45) Albuterol-Ipratropium Neb (Duoneb Neb) (03/16/18 13:45) Iohexol 350 Inj (Omnipaque 350 Inj) (03/16/18 15:09) Chest, Single Ap (03/16/18 ) Acetaminophen (Tylenol) (03/16/18 15:45) Admit Order (Ed Use Only) (03/16/18 15:41) Labs Laboratory Tests Test 03/16/18 14:07 White Blood Count 3.2 TH/MM3 Red Blood Count 2.71 MIL/MM3 Hemoglobin 9.9 GM/DL Hematocrit 29.3 % Mean Corpuscular Volume 108.0 FL Mean Corpuscular Hemoglobin 36.7 PG Mean Corpuscular Hemoglobin Concent 34.0 % Red Cell Distribution Width 15.1 % Platelet Count 66 TH/MM3 Mean Platelet Volume 7.1 FL Neutrophils (%) (Auto) 48.1 % Lymphocytes (%) (Auto) 36.7 % Monocytes (%) (Auto) 13.2 % Eosinophils (%) (Auto) 1.6 % Basophils (%) (Auto) 0.4 % Neutrophils # (Auto) 1.5 TH/MM3 Lymphocytes # (Auto) 1.2 TH/MM3 Monocytes # (Auto) 0.4 TH/MM3 Eosinophils # (Auto) 0.1 TH/MM3 Basophils # (Auto) 0.0 TH/MM3 CBC Comment AUTO DIFF Differential Comment AUTO DIFF CONFIRMED Blood Urea Nitrogen 18 MG/DL Creatinine 0.75 MG/DL Random Glucose 123 MG/DL Total Protein 6.7 GM/DL Albumin 3.2 GM/DL Calcium Level 8.6 MG/DL Alkaline Phosphatase 47 U/L Aspartate Amino Transf (AST/SGOT) 16 U/L Alanine Aminotransferase (ALT/SGPT) 20 U/L Total Bilirubin 0.4 MG/DL Sodium Level 138 MEQ/L Potassium Level 3.7 MEQ/L Chloride Level 102 MEQ/L Carbon Dioxide Level 33.4 MEQ/L Anion Gap 3 MEQ/L Estimat Glomerular Filtration Rate 99 ML/MIN MDM Medical Decision Making Medical Screen Exam Complete: Yes Emergency Medical Condition: Yes Interpretation(s) Macrocytic anemia, leukopenia, thrombocytopenia Bicarb elevated likely compensatory in the setting of COPD Last 24 hours Impressions Abdomen/Pelvis CT 03/16/18 1337 Signed Impressions: Service Date/Time: Friday, March 16, 2018 15:02 - CONCLUSION: 1. Severe fecal impaction in the rectum with large amount stool in the sigmoid and distal descending colon consistent with severe constipation. 2. Several loops of minimally prominent fluid filled ileum without transition point most consistent with adynamic ileus. 3. 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 4. Additional ancillary findings, as above. Andres Hess MD Differential Diagnosis Bowel obstruction, ileus, fecal impaction, malignancy, dehydration Narrative Course This is an 87-year-old male who presents to the emergency department with generalized weakness and constipation. Labs demonstrate a macrocytic anemia. Patient appears very malnourished. CT abdomen pelvis demonstrates a severe fecal impaction and adynamic ileus. Patient also was significantly short of breath on arrival and has a history of COPD which I suspect is worsening. He was given serial bronchodilator treatments and steroids and seems improved in the emergency department. I spoke to the patient's daughter who says that the patient has been seeing Dr. Cruz due to weight loss. He was diagnosed with Valles's esophagus. They placed him on a low residue diet, and put him on been a call, Megace and discontinued his MiraLAX. She suspects that this is contributed to his fecal impaction. She is hoping that gastroenterology can see him in the hospital. She was asking if another group could evaluate the patient. Patient will be admitted for fecal impaction, ileus and continued COPD treatment. Physical therapy evaluation would be prudent as well as the patient appears to be declining at home and may benefit from discharge to rehab. Physician Communication Physician Communication Discussed with Dr. Raines Diagnosis Primary Impression: Adynamic ileus Additional Impressions: Fecal impaction COPD exacerbation Admitting Information Admitting Physician Requests: Observation Judith Dowling MD March 16, 2018 15:55
[2018-03-16] MEDS: SODIUM CHLOR 0.9% 1000 ML INJ 1,000 ML IV SCH (16:00)
--- NOTE | 2018-03-16 16:24 | RADRPT ---
EXAM DATE/TIME: 03/16/2018 15:36 [facility] COMPARISON: CHEST SINGLE AP, October 06, 2016, 15:06. INDICATIONS : Short of breath. MEDICAL HISTORY : Cardiovascular disease. Congestive heart failure. Chronic obstructive pulmonary disease. Hypertension . SURGICAL HISTORY : Pacemaker. Hernia repair. TURP. Hip replacement. ENCOUNTER: Initial ACUITY: 2 days PAIN SCORE: 0/10 LOCATION: Bilateral chest FINDINGS: A single view of the chest demonstrates pacer leads overlying right atrium and probably right ventric le. Extensive parenchymal scarring in the upper lungs with upward hilar retraction. No pneumothorax. No effusion. No new consolidation. CONCLUSION: 1. Extensive apical parenchymal scarring and bullous changes similar to September 2016 comparison. Pac er leads unchanged. No new consolidation or effusion. Russel Wyatt MD on March 16, 2018 at 16:18 Board Certified Radiologist. This report was verified electronically.
[2018-03-16] MEDS ORDERED: ONDANSETRON HCL 4 MG/2 ML VIAL IV ONE (17:15)
--- NOTE | 2018-03-16 17:57 | HHI.HP ---
[facility] Primary [facility] Physician Julissa Alcala MD Admission Diagnosis fecal impaction, ileus Diagnoses: Chief Complaint: Abdominal pain Travel History International Travel<30 Days: No Contact w/Intl Traveler <30 Da: No Traveled to Known Affected Are: No History of Present Illness The patient is an 87-year-old male with a past medical history of COPD who presents to the emergency department with constipation and abdominal pain. He says his pain has been located around his belly button. His abdominal pain has been increasing. He has not had a bowel movement for several days. He has been taking laxatives at home with no success. He says he has not had an appetite for two months. He has lost 20 pounds during that time. He feels like he has lost some energy. He has been taking supplements to help him gain an appetite. He says he has had an EGD/ colonoscopy about six months ago and was found to have Valles's Esophagus. He also has been increasingly short of breath over the past 2 days, and has been using his oxygen more frequently. He normally uses 2 L of oxygen at night. He lives with his and ambulates with a walker. Review of Systems Except as stated in HPI: all other systems reviewed are Neg Past Family Social History Past Medical History COPD Heart block s/p pacemaker Valles's esophagus HTN Past Surgical History Inguinal hernia repair Pacemaker placement 2014 Tonsillectomy as a child TURP Right hip surgery Allergies: Coded Allergies: No Known Allergies (Verified Adverse Reaction, Unknown, 03/16/18) Family History The pt denies pertinent family history Social History The pt does not smoke or drink. He lives with his . Physical Exam Vital Signs Vital Signs Date Time Temp Pulse Resp B/P (MAP) Pulse Ox O2 Delivery O2 Flow Rate FiO2 03/16/18 17:26 60 16 86/58 (67) 95 3.00 03/16/18 16:54 86 20 71/42 (52) 100 Nasal Cannula 2.00 03/16/18 16:39 103 16 124/67 (86) 97 Nasal Cannula 2.00 03/16/18 14:11 18 100 Nasal Cannula 2.00 03/16/18 14:05 100 Nasal Cannula 2.00 03/16/18 13:39 18 03/16/18 13:15 97.1 98 18 170/61 (97) 95 Physical Exam GENERAL: Frail elderly male in no acute distress. SKIN: Focused skin assessment warm and dry. HEAD: Atraumatic. Normocephalic. EYES: Pupils equal and round. No injection or drainage. ENT: Moist mucous membranes NECK: Trachea midline. CARDIOVASCULAR: Regular rate and rhythm. No murmur appreciated. RESPIRATORY: Clear to auscultation. Breath sounds equal bilaterally. GASTROINTESTINAL: Abdomen soft, abdominal distention, decreased bowel sounds. MUSCULOSKELETAL: No obvious deformities. No edema. NEUROLOGICAL: Alert and oriented to person and place. No obvious cranial nerve deficits. Moving all extremities. Laboratory Laboratory Tests Test 03/16/18 14:07 White Blood Count 3.2 Red Blood Count 2.71 Hemoglobin 9.9 Hematocrit 29.3 Mean Corpuscular Volume 108.0 Mean Corpuscular Hemoglobin 36.7 Mean Corpuscular Hemoglobin Concent 34.0 Red Cell Distribution Width 15.1 Platelet Count 66 Mean Platelet Volume 7.1 Neutrophils (%) (Auto) 48.1 Lymphocytes (%) (Auto) 36.7 Monocytes (%) (Auto) 13.2 Eosinophils (%) (Auto) 1.6 Basophils (%) (Auto) 0.4 Neutrophils # (Auto) 1.5 Lymphocytes # (Auto) 1.2 Monocytes # (Auto) 0.4 Eosinophils # (Auto) 0.1 Basophils # (Auto) 0.0 CBC Comment AUTO DIFF Differential Comment AUTO DIFF CONFIRMED Blood Urea Nitrogen 18 Creatinine 0.75 Random Glucose 123 Total Protein 6.7 Albumin 3.2 Calcium Level 8.6 Alkaline Phosphatase 47 Aspartate Amino Transf (AST/SGOT) 16 Alanine Aminotransferase (ALT/SGPT) 20 Total Bilirubin 0.4 Sodium Level 138 Potassium Level 3.7 Chloride Level 102 Carbon Dioxide Level 33.4 Anion Gap 3 Estimat Glomerular Filtration Rate 99 Result Diagram: 03/16/18 1407 03/16/18 1407 Imaging Last Impressions Abdomen/Pelvis CT 03/16/18 2877 Signed Impressions: Service Date/Time: Friday, March 16, 2018 15:02 - CONCLUSION: 1. Severe fecal impaction in the rectum with large amount stool in the sigmoid and distal descending colon consistent with severe constipation. 2. Several loops of minimally prominent fluid filled ileum without transition point most consistent with adynamic ileus. 3. 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 4. Additional ancillary findings, as above. Andres Hess MD Chest X-Ray 03/16/18 0000 Signed Impressions: Service Date/Time: Friday, March 16, 2018 15:36 - CONCLUSION: 1. Extensive apical parenchymal scarring and bullous changes similar to September 2016 comparison. Pacer leads unchanged. No new consolidation or effusion. Russel Wyatt MD Caprini VTE Risk Assessment Caprini VTE Risk Assessment: Mod/High Risk (score >= 2) Caprini Risk Assessment Model Point Value = 1 Point Value = 2 Point Value = 3 Point Value = 5 Age 41-60 Minor surgery BMI > 25 kg/m2 Swollen legs Varicose veins or History of unexplained or recurrent spontaneous Oral contraceptives or hormone replacement Sepsis (< 1 month) Serious lung disease, including pneumonia (< 1 month) Abnormal pulmonary function Acute myocardial infarction Congestive heart failure (< 1 month) History of inflammatory bowel disease Medical patient at bed rest Age 61-74 Arthroscopic surgery Major open surgery (> 45 min) Laparoscopic surgery (> 45 min) Malignancy Confined to bed (> 72 hours) Immobilizing plaster cast Central venous access Age >= 75 History of VTE Family history of VTE Factor V Leiden Prothrombin [id number] Lupus anticoagulant Anticardiolipin antibodies Elevated serum homocysteine Heparin-induced thrombocytopenia Other congenital or acquired thrombophilia Stroke (< 1 month) Elective arthroplasty Hip, pelvis, or leg fracture Acute spinal cord injury (< 1 month) Prophylaxis Regimen Total Risk Factor Score Risk Level Prophylaxis Regimen 0-1 Low Early ambulation 2 Moderate Order ONE of the following: *Sequential Compression Device (SCD) *Heparin 5000 units SQ BID 3-4 Higher Order ONE of the following medications: *Heparin 5000 units SQ TID *Enoxaparin/Lovenox 40 mg SQ daily (WT < 150 kg, CrCl > 30 mL/min) *Enoxaparin/Lovenox 30 mg SQ daily (WT < 150 kg, CrCl > 10-29 mL/min) *Enoxaparin/Lovenox 30 mg SQ BID (WT < 150 kg, CrCl > 30 mL/min) AND/OR *Sequential Compression Device (SCD) 5 or more Highest Order ONE of the following medications: *Heparin 5000 units SQ TID (Preferred with Epidurals) *Enoxaparin/Lovenox 40 mg SQ daily (WT < 150 kg, CrCl > 30 mL/min) *Enoxaparin/Lovenox 30 mg SQ daily (WT < 150 kg, CrCl > 10-29 mL/min) *Enoxaparin/Lovenox 30 mg SQ BID (WT < 150 kg, CrCl > 30 mL/min) AND *Sequential Compression Device (SCD) Assessment and Plan Assessment and Plan Fecal impaction The pt presented with constipation and abdominal pain. CT of the abdomen shows: Severe fecal impaction in the rectum with large amount of stool in the sigmoid and distal descending colon consistent with severe constipation; Several loops of minimally prominent fluid filled ileum without transition point most consistent with adynamic ileus. - NPO with IVFs. - pain control and antiemetics as needed. - serial abdominal exams. - GI consult requested. - IV PPI. Hypotension Likely s/t dehydration. He responded well to a fluid bolus. - continue IVFs. - hold antihypertensive meds. Pancytopenia Chronic, appears to be at baseline. Has been evaluated by hematology in the past. - outpt hematology follow-up. COPD On home oxygen. CXR stable. - continue inhaler. - nebs and oxygen as needed. Weakness/ weight-loss S/t above. - PT eval. - GI eval. PPx: SCDs Discussed Condition With Pt, nurse, Dr. Dowling Physician Certification 2 Midnight Certification Type: Admission for Inpatient Services Order for Inpatient Services The services are ordered in accordance with Medicare regulations or non- Medicare payer requirements, as applicable. In the case of services not specified as inpatient-only, they are appropriately provided as inpatient services in accordance with the 2-midnight benchmark. Estimated LOS (days): 2 days is the estimated time the patient will need to remain in the hospital, assuming treatment plan goals are met and no additional complications. Post-Hospital Plan: Not yet determined Jonathan Raines DO March 16, 2018 17:57
--- NOTE | 2018-03-16 20:24 | MB ---
cc: Hakan Conroy MD, Ketul R MD DATE: 03/16/2018 ENDOSCOPIST: Hakan Conroy MD REASON FOR CONSULTATION: Fecal impaction and constipation. HISTORY OF PRESENT ILLNESS: This is an 87-year-old gentleman with longstanding history of COPD and chronic constipation who comes to the [facility] with complaints of abdominal pain slowly worsening over the past several days and inability to have a bowel movement and being constipated. He admits of taking several [id number] laxatives including a suppository at home without success. He recalls undergoing an upper endoscopy and a colonoscopy [address] Cruz[address] He recalls being diagnosed with Valles's esophagus. He otherwise denies any melanotic stools, nausea or vomiting. In the ER, he underwent a CT scan of the abdomen and pelvis which was significant for severe fecal impaction in the rectum with large amount of stool in the sigmoid and distal descending colon consistent with constipation. GI was consulted for help in the treatment of constipation. PAST MEDICAL HISTORY: COPD, Valles's esophagus, hypertension. PAST SURGICAL HISTORY: Inguinal hernia repair, pacemaker placement, tonsillectomy, TURP, hip surgery. FAMILY HISTORY: No GI malignancy. SOCIAL HISTORY: No tobacco, alcohol or drug abuse. Lives with his . ALLERGIES: NO KNOWN DRUG ALLERGIES. HOME MEDICATIONS: 1. Tylenol. 2. Symbicort 3. Bethanechol 4. Coreg. 5. Pepcid. 6. Iron sulfate. 7. Folic acid. 8. Guaifenesin. 9. Losartan. 10. Omeprazole. 11. MiraLax. 12. Flomax. REVIEW OF SYSTEMS: A 12-point review of system was obtained by me which was negative or noncontributory except for the above-mentioned in the HPI. PHYSICAL EXAMINATION: VITAL SIGNS: Temperature not measured, heart rate 95, respiration 18, blood pressure 126/57, O2 saturation 98% on 3 liters. GENERAL: Alert, oriented. No acute distress, slightly disheveled appearing but in no acute distress. HEENT: Pupils equal, round, reactive to light. Mucosa is moist and pink. NECK: Supple, nontender. No carotid bruits. No JVD noted. HEART: Regular rate and rhythm. Murmur heard. LUNGS: Clear to auscultation bilaterally. No wheeze heard. ABDOMEN: Soft, mild tenderness diffusely, slightly full, somewhat tympanic. No rebound appreciated. No periumbilical ecchymosis, hepatosplenomegaly not appreciated. No abdominal hernias noted. GENITOURINARY: No CV angle tenderness. MUSCULOSKELETAL: Reduced mobility, decreased strength and weakness. NEUROLOGIC: Alert, oriented. No focal deficits. PSYCHIATRIC: Cooperative, appropriate mood and affect. LABORATORY DATA: WBC 3.2, hemoglobin 9.9, MCV of 108, platelet count of 66. Sodium 138, potassium 3.7, chloride 102, bicarbonate 34, BUN 18, creatinine 0.75, total bilirubin 0.4, AST 16, ALT 20, alkaline phosphatase 47. IMAGING STUDIES Imaging as described above. IMPRESSION: Severe fecal impaction with clear constipation likely contributing to his abdominal discomfort, reduced appetite, generalized unwell feeling. The patient underwent a manual disimpaction in the emergency room, has had significant relief with some bowel movements already. 1. Severe constipation 2. Abdominal pain secondary to above. 3. Chronic obstructive pulmonary disease. 4. Chronic weight loss. 5. Pancytopenia with macrocytosis unclear etiology. May need further workup for this. RECOMMENDATIONS: 1. Recommend tap water enema to help alleviate some of his lower fecal impaction symptoms. If this is not helpful, then would recommend ordering a Gastrografin enema for therapeutic reasons. This should help clear up his constipation symptoms. Once his impaction has been cleared, then he should continue MiraLax 17 g p.o. b.i.d. The patient has already undergone endoscopic workup. Therefore, at this time this is not necessary. 2. Your workup and treatment in regard to chronic obstructive pulmonary disease as well as his pancytopenia. Thank you for allowing [facility] to participate in the care of this patient. Please do not hesitate to contact for any further questions. MD JUNIE Cornejo/ , 07:57 PM , 08:23 PM
[2018-03-16] MEDS: SODIUM CHLORIDE 0.9% FLUSH 10 ML FLUSH IV FLUSH SCH (21:30)
[2018-03-16] MEDS: BUDESONIDE-FORMOTEROL 80/4.5 MCG INHALER INH SCH (21:30)
[2018-03-17] VITALS (16 sets, daily range): BP systolic 92–134; BP diastolic 55–79; PULSE 71–89; RESP 16–20; TEMP 97–98.4; O2SAT 94–100
[2018-03-17] MEDS: SODIUM CHLOR 0.9% 1000 ML INJ 1,000 ML IV SCH ×2 (01:45→11:23)
[2018-03-17 06:18] LABS: AUTOMATED NEUTROPHIL # 1.9 TH/MM3 (1.8-7.7); BASOPHIL # 0.1 TH/MM3 (0-0.2); BASOPHIL % 3.7 % (0.0-2.0); EOSINOPHIL % 0.1 % (0.0-4.0); HEMATOCRIT 29.9 % (39.0-51.0); HEMOGLOBIN 9.9 GM/DL (13.0-17.0); LYMPH % 16.8 % (9.0-44.0); LYMPHOCYTE # 0.5 TH/MM3 (1.0-4.8); MEAN CELL VOLUME 106.1 FL (80.0-100.0); MEAN PLATELET VOLUME 7.2 FL (7.0-11.0); MONO % 11.1 % (0.0-8.0); MONOCYTE # 0.3 TH/MM3 (0-0.9); NEUT % 68.3 % (16.0-70.0); PLATELET COUNT 52 TH/MM3 (150-450); RED BLOOD COUNT 2.82 MIL/MM3 (4.50-5.90); WHITE BLOOD COUNT 2.8 TH/MM3 (4.0-11.0)
[2018-03-17 06:28] LABS: SODIUM (NA) 143 MEQ/L (136-145)
[2018-03-17 06:53] LABS: OVALOCYTES 2+ (NORMAL)
[2018-03-17 07:20] LABS: ALBUMIN 2.7 GM/DL (3.4-5.0); ALKALINE PHOSPHATASE 38 U/L (45-117); ALT (GPT) 19 U/L (12-78); AST (GOT) 20 U/L (15-37); BICARBONATE 29.2 MEQ/L (21.0-32.0); BLOOD UREA NITROGEN 25 MG/DL (7-18); CALCIUM 7.8 MG/DL (8.5-10.1); CHLORIDE 110 MEQ/L (98-107); CREATININE 0.92 MG/DL (0.60-1.30); GLOMERULAR FILTRATION RATE 78 ML/MIN (>89); GLUCOSE,RANDOM 129 MG/DL (74-106); TOTAL BILIRUBIN ADULT 0.5 MG/DL (0.2-1.0); TOTAL PROTEIN 5.8 GM/DL (6.4-8.2)
[2018-03-17] MEDS: BUDESONIDE-FORMOTEROL 80/4.5 MCG INHALER INH SCH ×2 (08:57→20:32)
[2018-03-17] MEDS: SODIUM CHLORIDE 0.9% FLUSH 10 ML FLUSH IV FLUSH SCH ×2 (08:58→20:32)
--- NOTE | 2018-03-17 09:25 | EKG ---
Date Performed: 03/16/2018 Time Performed: 16:58:58 PTAGE: 87 years EKG: ELECTRONIC VENTRICULAR PACEMAKER ABNORMAL RHYTHM ECG INTERPRETATION BASED ON A DEFAULT AGE OF 40 YEARS NO PREVIOUS TRACING DOCTOR: Mark Campbell Interpretating Date/Time 03/17/2018 09:18:45
[2018-03-17] MEDS: POLYETHYLENE GLYCOL 17 GM PKG PO SCH ×2 (12:45→20:32)
--- NOTE | 2018-03-17 14:21 | HHI.PR ---
Subjective Remarks The patient was resting comfortably in bed. He just had a small bowel movement. His family was at the bedside and her questions were answered. Also discussed thoroughly with his daughter on the phone. His daughter thought that he was confused more so than baseline. She was also concerned that he and his may need to move into assisted living. Discussed with nursing. Objective Vitals Vital Signs Date Time Temp Pulse Resp B/P (MAP) Pulse Ox O2 Delivery O2 Flow Rate FiO2 03/17/18 10:33 82 16 115/59 (77) 98 2.00 03/17/18 09:56 98.1 76 18 122/65 (84) 96 Room Air 03/17/18 08:31 85 18 112/79 (90) 100 Nasal Cannula 2.00 03/17/18 07:09 80 16 104/57 (73) 98 Nasal Cannula 2.00 03/17/18 06:11 18 03/17/18 06:11 83 18 116/56 (76) 100 Nasal Cannula 3.00 03/17/18 05:22 77 18 115/55 (75) 100 Nasal Cannula 3.00 03/17/18 04:24 79 16 105/56 (72) 100 Nasal Cannula 3.00 03/17/18 03:11 98.4 82 18 114/63 (80) 100 Nasal Cannula 3.00 03/17/18 02:25 78 16 121/65 (83) 100 Nasal Cannula 3.00 03/17/18 01:41 18 03/17/18 01:41 83 18 134/72 (92) 100 Nasal Cannula 3.00 03/17/18 00:11 71 16 92/57 (69) 100 Nasal Cannula 3.00 03/16/18 23:11 78 16 92/55 (67) 100 Nasal Cannula 3.00 03/16/18 22:21 76 18 94/60 (71) 100 Nasal Cannula 3.00 03/16/18 21:24 78 20 106/62 (77) 100 Nasal Cannula 3.00 03/16/18 20:16 83 18 103/64 (77) Nasal Cannula 3.00 03/16/18 19:00 18 03/16/18 19:00 95 18 126/57 (80) Nasal Cannula 3.00 03/16/18 18:17 75 16 100/51 (67) 98 Nasal Cannula 3.00 03/16/18 17:50 78 16 109/50 (69) 95 3.00 03/16/18 17:26 60 16 86/58 (67) 95 3.00 03/16/18 16:54 86 20 71/42 (52) 100 Nasal Cannula 2.00 03/16/18 16:39 103 16 124/67 (86) 97 Nasal Cannula 2.00 I/O 03/16/18 03/16/18 03/16/18 03/17/18 03/17/18 03/17/18 06:59 14:59 22:59 06:59 14:59 22:59 Intake Total 1000 ml 200 ml Balance 1000 ml 200 ml Intake IV Total 1000 ml 200 ml # Bowel Movements 2 2 2 Result Diagram: 03/17/18 0611 03/17/18 0611 Imaging Last Impressions Abdomen/Pelvis CT 03/16/18 1337 Signed Impressions: Service Date/Time: Friday, March 16, 2018 15:02 - CONCLUSION: 1. Severe fecal impaction in the rectum with large amount stool in the sigmoid and distal descending colon consistent with severe constipation. 2. Several loops of minimally prominent fluid filled ileum without transition point most consistent with adynamic ileus. 3. 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 4. Additional ancillary findings, as above. Andres Hess MD Chest X-Ray 03/16/18 0000 Signed Impressions: Service Date/Time: Friday, March 16, 2018 15:36 - CONCLUSION: 1. Extensive apical parenchymal scarring and bullous changes similar to September 2016 comparison. Pacer leads unchanged. No new consolidation or effusion. Russel Wyatt MD Objective Remarks GENERAL: Frail elderly male in no acute distress. SKIN: Focused skin assessment warm and dry. HEAD: Atraumatic. Normocephalic. EYES: Pupils equal and round. No injection or drainage. ENT: Moist mucous membranes NECK: Trachea midline. CARDIOVASCULAR: Regular rate and rhythm. No murmur appreciated. RESPIRATORY: Clear to auscultation. Breath sounds equal bilaterally. GASTROINTESTINAL: Abdomen soft, non-distended, mild tenderness to palpation, positive bowel sounds. MUSCULOSKELETAL: No obvious deformities. No edema. NEUROLOGICAL: Alert and oriented to person and place. No obvious cranial nerve deficits. Moving all extremities. A/P Assessment and Plan Fecal impaction The pt presented with constipation and abdominal pain. CT of the abdomen shows: Severe fecal impaction in the rectum with large amount of stool in the sigmoid and distal descending colon consistent with severe constipation; Several loops of minimally prominent fluid filled ileum without transition point most consistent with adynamic ileus. GI consult appreciated. The patient has been passing gas and having bowel movements. - Advance to soft diet. - pain control and antiemetics as needed. - GI follow-up as an outpatient. - PPI. Metabolic encephalopathy Likely secondary to fecal impaction. - Neurochecks. - Check a UA. Hypotension Likely s/t dehydration. He responded well to a fluid bolus. - continue IVFs. - hold antihypertensive meds. Pancytopenia Chronic, appears to be at baseline. Has been evaluated by hematology in the past. - outpt hematology follow-up. COPD On home oxygen. CXR stable. - continue inhaler. - nebs and oxygen as needed. Weakness/ weight-loss S/t above. - PT/ OT eval. Valles's esophagus The patient's daughter states the patient takes small frequent meals. - Continue small frequent meals. - Swallow evaluation. PPx: SCDs Discharge Planning Will likely need SNF Jonathan Raines DO March 17, 2018 14:21
[2018-03-18] VITALS: BP 133/70; PULSE 76; RESP 18; TEMP 97.4; O2SAT 94
[2018-03-18 07:50] VITALS: BP 163/59; PULSE 84; RESP 20; TEMP 97.2; O2SAT 96
[2018-03-18] MEDS: SODIUM CHLORIDE 0.9% FLUSH 10 ML FLUSH IV FLUSH SCH ×2 (08:07→19:19)
[2018-03-18] MEDS: BUDESONIDE-FORMOTEROL 80/4.5 MCG INHALER INH SCH ×2 (08:07→19:19)
[2018-03-18] MEDS: POLYETHYLENE GLYCOL 17 GM PKG PO SCH ×2 (08:07→19:19)
[2018-03-18 11:30] VITALS: BP 153/70; PULSE 105; RESP 20; TEMP 97.2; O2SAT 99
[2018-03-18 11:37] LABS: BASOPHIL % 1.5 % (0.0-2.0); EOSINOPHIL % 0.2 % (0.0-4.0); HEMATOCRIT 27.2 % (39.0-51.0); HEMOGLOBIN 8.9 GM/DL (13.0-17.0); LYMPH % 25.2 % (9.0-44.0); LYMPHOCYTE # 0.8 TH/MM3 (1.0-4.8); MEAN CELL VOLUME 107.3 FL (80.0-100.0); MEAN CORPUSCULAR HEMOGLOBIN 35.1 PG (27.0-34.0); MEAN CORPUSCULAR HGB CONC 32.7 % (32.0-36.0); MEAN PLATELET VOLUME 7.3 FL (7.0-11.0); MONO % 11.4 % (0.0-8.0); MONOCYTE # 0.3 TH/MM3 (0-0.9); NEUT % 61.7 % (16.0-70.0); PLATELET COUNT 46 TH/MM3 (150-450); RED BLOOD COUNT 2.53 MIL/MM3 (4.50-5.90); RED CELL DISTRIBUTION WIDTH 15.4 % (11.6-17.2); WHITE BLOOD COUNT 3.1 TH/MM3 (4.0-11.0)
[2018-03-18 11:47] LABS: CALCIUM 8.1 MG/DL (8.5-10.1)
[2018-03-18 11:48] LABS: BICARBONATE 32.2 MEQ/L (21.0-32.0); MAGNESIUM 2.9 MG/DL (1.5-2.5)
[2018-03-18 11:51] LABS: CREATININE 0.71 MG/DL (0.60-1.30)
--- NOTE | 2018-03-18 12:20 | HHI.PR ---
Subjective Remarks The patient's family was at the bedside. Apparently the patient was confused last night and wandered into another patient's room. He is currently oriented. The patient's family's questions were addressed. The patient has been having bowel movements. He has not been eating that much. Discussed with nursing. Objective Vitals Vital Signs Date Time Temp Pulse Resp B/P (MAP) Pulse Ox O2 Delivery O2 Flow Rate FiO2 03/18/18 07:50 97.2 84 20 163/59 (93) 96 03/18/18 00:00 97.4 76 18 133/70 (91) 94 03/17/18 20:44 98 Nasal Cannula 2.00 03/17/18 20:00 97.0 72 18 134/71 (92) 94 03/17/18 15:50 97.6 89 20 122/62 (82) 94 I/O 03/17/18 03/17/18 03/17/18 03/18/18 03/18/18 03/18/18 07:00 15:00 23:00 07:00 15:00 23:00 Intake Total 500 ml 980 ml Output Total 1 ml Balance 500 ml 979 ml Intake Oral 300 ml 980 ml IV Total 200 ml Output Urine Total 1 ml # Voids 4 3 # Bowel Movements 2 2 4 4 Result Diagram: 03/18/18 1110 03/18/18 1110 Imaging Last Impressions Abdomen/Pelvis CT 03/16/18 1337 Signed Impressions: Service Date/Time: Friday, March 16, 2018 15:02 - CONCLUSION: 1. Severe fecal impaction in the rectum with large amount stool in the sigmoid and distal descending colon consistent with severe constipation. 2. Several loops of minimally prominent fluid filled ileum without transition point most consistent with adynamic ileus. 3. 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 4. Additional ancillary findings, as above. Andres Hess MD Chest X-Ray 03/16/18 0000 Signed Impressions: Service Date/Time: Friday, March 16, 2018 15:36 - CONCLUSION: 1. Extensive apical parenchymal scarring and bullous changes similar to September 2016 comparison. Pacer leads unchanged. No new consolidation or effusion. Russel Wyatt MD Objective Remarks GENERAL: Frail elderly male in no acute distress. SKIN: Focused skin assessment warm and dry. HEAD: Atraumatic. Normocephalic. EYES: Pupils equal and round. No injection or drainage. ENT: Moist mucous membranes NECK: Trachea midline. CARDIOVASCULAR: Regular rate and rhythm. No murmur appreciated. RESPIRATORY: Clear to auscultation. Breath sounds equal bilaterally. GASTROINTESTINAL: Abdomen soft, non-distended, mild tenderness to palpation, positive bowel sounds. MUSCULOSKELETAL: No obvious deformities. No edema. NEUROLOGICAL: Alert and oriented to person and place. No obvious cranial nerve deficits. Moving all extremities. A/P Assessment and Plan Fecal impaction The pt presented with constipation and abdominal pain. CT of the abdomen shows: Severe fecal impaction in the rectum with large amount of stool in the sigmoid and distal descending colon consistent with severe constipation; Several loops of minimally prominent fluid filled ileum without transition point most consistent with adynamic ileus. GI consult appreciated. The patient has been passing gas and having bowel movements. - Advance to low residue diet. - pain control and antiemetics as needed. - GI follow-up as an outpatient. - PPI. Metabolic encephalopathy Likely secondary to fecal impaction. - Neurochecks. - Check a UA. Hypotension Likely s/t dehydration. He responded well to a fluid bolus. - continue IVFs. - hold antihypertensive meds. Pancytopenia Chronic, appears to be at baseline. Has been evaluated by hematology in the past. - outpt hematology follow-up. COPD On home oxygen. CXR stable. - continue inhaler. - nebs and oxygen as needed. Weakness/ weight-loss S/t above. - PT/ OT eval. Family would prefer d/c with [facility] rather than SNF. Case management assistance appreciated. Valles's esophagus The patient's daughter states the patient takes small frequent meals. - Continue small frequent meals. Add Boost. - Swallow evaluation. - consider appetite stimulant. PPx: SCDs Discharge Planning D/c home with C in 1-2 days Jonathan Raines DO March 18, 2018 12:20
[2018-03-18 15:50] VITALS: BP 137/72; PULSE 101; RESP 20; TEMP 96.4; O2SAT 97
[2018-03-18 16:30] VITALS: O2SAT 98
[2018-03-18 20:00] VITALS: BP 152/81; PULSE 97; RESP 20; TEMP 100.4; O2SAT 96; O2SAT 98
[2018-03-18] MEDS ORDERED: PANTOPRAZOLE SOD 20 MG DELAYED RELEASE TAB PO ONE (20:00)
[2018-03-18] MEDS ORDERED: FAMOTIDINE 20 MG TAB PO ONE (20:00)
[2018-03-19] VITALS (8 sets, daily range): BP systolic 118–146; BP diastolic 61–88; PULSE 80–116; RESP 16–20; TEMP 96–99.1; O2SAT 92–99
[2018-03-19 08:28] LABS: HEMATOCRIT 28.3 % (39.0-51.0); HEMOGLOBIN 9.2 GM/DL (13.0-17.0); MEAN CELL VOLUME 106.8 FL (80.0-100.0); MEAN CORPUSCULAR HEMOGLOBIN 34.9 PG (27.0-34.0); MEAN CORPUSCULAR HGB CONC 32.7 % (32.0-36.0); MEAN PLATELET VOLUME 6.7 FL (7.0-11.0); PLATELET COUNT 48 TH/MM3 (150-450); RED BLOOD COUNT 2.65 MIL/MM3 (4.50-5.90); WHITE BLOOD COUNT 3.4 TH/MM3 (4.0-11.0)
[2018-03-19 08:39] LABS: CALCIUM 8.2 MG/DL (8.5-10.1)
[2018-03-19 08:40] LABS: BICARBONATE 32.3 MEQ/L (21.0-32.0)
[2018-03-19 08:48] LABS: CREATININE 0.59 MG/DL (0.60-1.30); MAGNESIUM 2.2 MG/DL (1.5-2.5)
[2018-03-19] MEDS: POLYETHYLENE GLYCOL 17 GM PKG PO SCH ×2 (09:00→21:00)
[2018-03-19] MEDS: SODIUM CHLORIDE 0.9% FLUSH 10 ML FLUSH IV FLUSH SCH ×2 (09:00→22:09)
[2018-03-19] MEDS: BUDESONIDE-FORMOTEROL 80/4.5 MCG INHALER INH SCH ×2 (09:20→22:09)
--- NOTE | 2018-03-19 11:32 | HHI.PR ---
Subjective Remarks The patient was resting comfortably in bed. He has not been urinating as much as normal. He has been having a lot of bowel movements. Family was at the bedside. They were concerned about a wound near his coccyx. They were also concerned about the medications he is on at home. Discussed with nursing. Objective Vitals Vital Signs Date Time Temp Pulse Resp B/P (MAP) Pulse Ox O2 Delivery O2 Flow Rate FiO2 03/19/18 11:20 95 21 03/19/18 08:00 97.1 82 16 126/61 (82) 92 03/19/18 05:01 96.5 80 20 118/76 (90) 95 03/19/18 01:42 96.0 86 20 146/88 (107) 98 03/18/18 20:00 100.4 97 20 152/81 (104) 96 03/18/18 20:00 98 Nasal Cannula 2.00 03/18/18 16:30 98 Nasal Cannula 2.00 03/18/18 15:50 96.4 101 20 137/72 (93) 97 03/18/18 11:30 97.2 105 20 153/70 (97) 99 I/O 03/18/18 03/18/18 03/18/18 03/19/18 03/19/18 03/19/18 07:00 15:00 23:00 07:00 15:00 23:00 Intake Total 840 ml 240 ml Output Total 725 ml Balance 840 ml -485 ml Intake Oral 840 ml 240 ml Output Urine Total 725 ml # Voids 3 5 # Bowel Movements 4 3 Result Diagram: 03/19/18 0820 03/19/18 0820 Imaging Last Impressions Abdomen/Pelvis CT 03/16/18 1337 Signed Impressions: Service Date/Time: Friday, March 16, 2018 15:02 - CONCLUSION: 1. Severe fecal impaction in the rectum with large amount stool in the sigmoid and distal descending colon consistent with severe constipation. 2. Several loops of minimally prominent fluid filled ileum without transition point most consistent with adynamic ileus. 3. 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 4. Additional ancillary findings, as above. Andres Hess MD Chest X-Ray 03/16/18 0000 Signed Impressions: Service Date/Time: Friday, March 16, 2018 15:36 - CONCLUSION: 1. Extensive apical parenchymal scarring and bullous changes similar to September 2016 comparison. Pacer leads unchanged. No new consolidation or effusion. Russel Wyatt MD Objective Remarks GENERAL: Frail elderly male in no acute distress. SKIN: Focused skin assessment warm and dry. Minor sore at coccyx. HEAD: Atraumatic. Normocephalic. EYES: Pupils equal and round. No injection or drainage. ENT: Moist mucous membranes NECK: Trachea midline. CARDIOVASCULAR: Regular rate and rhythm. No murmur appreciated. RESPIRATORY: Clear to auscultation. Breath sounds equal bilaterally. GASTROINTESTINAL: Abdomen soft, non-distended, mild tenderness to palpation, positive bowel sounds. MUSCULOSKELETAL: No obvious deformities. No edema. NEUROLOGICAL: Alert and oriented to person and place. No obvious cranial nerve deficits. Moving all extremities. A/P Assessment and Plan Fecal impaction The pt presented with constipation and abdominal pain. CT of the abdomen shows: Severe fecal impaction in the rectum with large amount of stool in the sigmoid and distal descending colon consistent with severe constipation; Several loops of minimally prominent fluid filled ileum without transition point most consistent with adynamic ileus. GI consult appreciated. The patient has been passing gas and having bowel movements. - Advance to low residue diet. - pain control and antiemetics as needed. - GI follow-up as an outpatient. - resume home GI regimen. Metabolic encephalopathy Likely secondary to fecal impaction. Improved. - Neurochecks. - Check a UA. Urinary retention Chronic problem. - resume bethanechol at reduced dose. - resume Flomax BID. - bladder scan, Short if needed. - treat constipation as above. Hypotension Likely s/t dehydration. He responded well to a fluid bolus. Resolved. - resume Coreg and Flomax. Hold losartan for now. Pancytopenia Chronic, appears to be at baseline. Has been evaluated by hematology in the past. - outpt hematology follow-up. COPD On home oxygen. CXR stable. - continue inhalers. - nebs and oxygen as needed. Weakness/ weight-loss S/t above. - PT/ OT eval. Family would prefer d/c with [facility] rather than SNF. Case management assistance appreciated. Valles's esophagus The patient's daughter states the patient takes small frequent meals. - Continue small frequent meals. Add Boost. - Swallow evaluation. Soft, thin liquid diet recommended. - resume Megace. PPx: SCDs Discharge Planning D/c home with C in 1-2 days if urinary retention is improved. Jonathan Raines DO March 19, 2018 11:32
[2018-03-19] MEDS: FAMOTIDINE 20 MG TAB PO SCH (12:40)
[2018-03-19] MEDS: CARVEDILOL 3.125 MG TAB PO SCH ×2 (12:41→22:08)
[2018-03-19] MEDS: MEGESTROL ACETATE 40 MG TAB PO SCH ×3 (12:41→22:08)
[2018-03-19] MEDS: TAMSULOSIN HCL 0.4 MG CAP PO SCH ×2 (12:41→22:08)
[2018-03-19] MEDS: BETHANECHOL CHL 10 MG TAB PO SCH ×3 (13:23→23:34)
[2018-03-19] MEDS: CALAMINE LOTION 180 APPLIC/180 ML BTL TOPICAL SCH (13:23)
[2018-03-19] MEDS: PANTOPRAZOLE SOD 20 MG DELAYED RELEASE TAB PO SCH (13:23)
[2018-03-19 15:15] LABS: BILIRUBIN, URINE NEG (NEG); BLOOD, URINE MOD (NEG); GLUCOSE,URINE NEG (NEG); KETONE, URINE TRACE mg/dL (NEG); NITRITE,URINE NEG (NEG); PH, URINE 6.5 (5.0-8.5); URINE COLOR YELLOW (YELLW/STRAW); URINE LEUKOCYTE ESTERASE NEG (NEG)
[2018-03-19 15:19] LABS: RBC, URINE 15-19 /hpf (0-3); SQUAMOUS EPITHELIAL CELL URINE 0-5 /hpf (0-5)
[2018-03-19] MEDS: RESP: ALBUTEROL 2.5 MG/IPRATROPIUM 0.5 MG NEB (PRN) NEB (19:43)
[2018-03-20] VITALS: BP 105/60; PULSE 80; RESP 15; TEMP 99.4; O2SAT 99
[2018-03-20] MEDS: RESP: ALBUTEROL 2.5 MG/IPRATROPIUM 0.5 MG NEB (PRN) NEB (00:04)
[2018-03-20] MEDS: BETHANECHOL CHL 10 MG TAB PO SCH ×2 (05:04→12:00)
[2018-03-20 08:00] VITALS: BP 121/65; PULSE 85; RESP 20; TEMP 97.8; O2SAT 96
[2018-03-20] MEDS ORDERED: RESP: ALBUTEROL 2.5 MG/IPRATROPIUM 0.5 MG NEB (SCH) NEB (08:00)
[2018-03-20 08:32] VITALS: O2SAT 94
[2018-03-20] MEDS: BUDESONIDE-FORMOTEROL 80/4.5 MCG INHALER INH SCH (09:27)
[2018-03-20] MEDS: SODIUM CHLORIDE 0.9% FLUSH 10 ML FLUSH IV FLUSH SCH (09:27)
[2018-03-20] MEDS: MEGESTROL ACETATE 40 MG TAB PO SCH ×2 (09:27→12:00)
[2018-03-20] MEDS: TAMSULOSIN HCL 0.4 MG CAP PO SCH (09:27)
[2018-03-20] MEDS: CARVEDILOL 3.125 MG TAB PO SCH (09:27)
[2018-03-20] MEDS: FAMOTIDINE 20 MG TAB PO SCH (09:28)
[2018-03-20] MEDS: PANTOPRAZOLE SOD 20 MG DELAYED RELEASE TAB PO SCH (09:28)
[2018-03-20] MEDS: POLYETHYLENE GLYCOL 17 GM PKG PO SCH (09:28)
[2018-03-20] MEDS: CALAMINE LOTION 180 APPLIC/180 ML BTL TOPICAL SCH (09:29)
--- NOTE | 2018-03-20 10:02 | HHI.DCPOC ---
Discharge Care Plan Diagnosis: (1) Fecal impaction (2) Adynamic ileus Goals to Promote Your Health * To prevent worsening of your condition and complications * To maintain your health at the optimal level Directions to Meet Your Goals Take your medications as prescribed Follow your dietary instruction Follow activity as directed Keep your appointments as scheduled Take your immunizations and boosters as scheduled If your symptoms worsen call your PCP, if no PCP go to Urgent Care Center or Emergency Room Smoking is Dangerous to Your Health. Avoid second hand smoke Call the 24-hour hour crisis hotline for domestic abuse at Naldo Najera March 20, 2018 10:02
--- NOTE | 2018-03-20 10:04 | HHI.FF ---
Face to Face Verification Diagnosis: (1) Impaired mobility and activities of daily living (2) Pre-syncope (3) Fecal impaction (4) Adynamic ileus Physical Therapy Order: Evaluate and Treat, Improve ambulation, Strength and gait training Home Health Nursing Order: Medical education Signs/symptoms of disease process Nursing assessment with vital signs I have seen patient Sedrick Ferreira on 03/20/18. My clinical findings support the need for the requested home health care services because: Deconditioned w/ increased weakness Limited ability to care for self I certify that my clinical findings support that this patient is homebound because: Unsteady gait/balance Unsafe to leave home unassisted Naldo Najera March 20, 2018 10:04
[2018-03-20] MEDS ORDERED: CALALOT3 TOPICAL (10:18)
--- NOTE | 2018-03-20 11:45 | HHI.DS ---
Discharge Summary Admission Date March 16, 2018 at 16:03 Discharge Date: March 20, 2018 Admitting Diagnosis fecal impaction, ileus (1) Fecal impaction ICD Code: K56.41 - Fecal impaction (2) Ileus ICD Code: K56.7 - Ileus, unspecified Procedures None Brief History - From Admission The patient is an 87-year-old male with a past medical history of COPD who presents to the emergency department with constipation and abdominal pain. He says his pain has been located around his belly button. His abdominal pain has been increasing. He has not had a bowel movement for several days. He has been taking laxatives at home with no success. He says he has not had an appetite for two months. He has lost 20 pounds during that time. He feels like he has lost some energy. He has been taking supplements to help him gain an appetite. He says he has had an EGD/ colonoscopy about six months ago and was found to have Valles's Esophagus. He also has been increasingly short of breath over the past 2 days, and has been using his oxygen more frequently. He normally uses 2 L of oxygen at night. He lives with his and ambulates with a walker. CBC/BMP: 03/19/18 0820 03/19/18 0820 Significant Findings Laboratory Tests Test 03/18/18 11:10 03/19/18 08:20 03/19/18 15:05 White Blood Count 3.1 TH/MM3 (4.0-11.0) 3.4 TH/MM3 (4.0-11.0) Red Blood Count 2.53 MIL/MM3 (4.50-5.90) 2.65 MIL/MM3 (4.50-5.90) Hemoglobin 8.9 GM/DL (13.0-17.0) 9.2 GM/DL (13.0-17.0) Hematocrit 27.2 % (39.0-51.0) 28.3 % (39.0-51.0) Mean Corpuscular Volume 107.3 FL (80.0-100.0) 106.8 FL (80.0-100.0) Mean Corpuscular Hemoglobin 35.1 PG (27.0-34.0) 34.9 PG (27.0-34.0) Platelet Count 46 TH/MM3 (150-450) 48 TH/MM3 (150-450) Monocytes (%) (Auto) 11.4 % (0.0-8.0) Lymphocytes # (Auto) 0.8 TH/MM3 (1.0-4.8) Blood Urea Nitrogen 28 MG/DL (7-18) Calcium Level 8.1 MG/DL (8.5-10.1) 8.2 MG/DL (8.5-10.1) Phosphorus Level 2.0 MG/DL (2.5-4.9) Magnesium Level 2.9 MG/DL (1.5-2.5) Carbon Dioxide Level 32.2 MEQ/L (21.0-32.0) 32.3 MEQ/L (21.0-32.0) Anion Gap 3 MEQ/L (5-15) 2 MEQ/L (5-15) Mean Platelet Volume 6.7 FL (7.0-11.0) Creatinine 0.59 MG/DL (0.60-1.30) Urine Protein 100 mg/dL (NEG-TRACE) Urine Ketones TRACE mg/dL (NEG) Urine Occult Blood MOD (NEG) Urine RBC 15-19 /hpf (0-3) Imaging Last Impressions Abdomen/Pelvis CT 03/16/18 1337 Signed Impressions: Service Date/Time: Friday, March 16, 2018 15:02 - CONCLUSION: 1. Severe fecal impaction in the rectum with large amount stool in the sigmoid and distal descending colon consistent with severe constipation. 2. Several loops of minimally prominent fluid filled ileum without transition point most consistent with adynamic ileus. 3. 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 4. Additional ancillary findings, as above. Andres Hess MD Chest X-Ray 03/16/18 0000 Signed Impressions: Service Date/Time: Friday, March 16, 2018 15:36 - CONCLUSION: 1. Extensive apical parenchymal scarring and bullous changes similar to September 2016 comparison. Pacer leads unchanged. No new consolidation or effusion. Russel Wyatt MD PE at Discharge GENERAL: Frail elderly male in no acute distress. SKIN: Focused skin assessment warm and dry. Minor sore at coccyx. HEAD: Atraumatic. Normocephalic. EYES: Pupils equal and round. No injection or drainage. ENT: Moist mucous membranes NECK: Trachea midline. CARDIOVASCULAR: Regular rate and rhythm. No murmur appreciated. RESPIRATORY: Clear to auscultation. Breath sounds equal bilaterally. GASTROINTESTINAL: Abdomen soft, non-distended, mild tenderness to palpation, positive bowel sounds. MUSCULOSKELETAL: No obvious deformities. No edema. NEUROLOGICAL: Alert and oriented to person and place. No obvious cranial nerve deficits. Moving all extremities. Hospital Course 87-year-old male who originally presented to the emergency department because of abdominal pain and constipation. Patient's pain was located periumbilical and he had been trying outpatient treatment with laxatives without any success. He had had a decreased appetite for over 2 months and lost approximately 20 pounds. Patient did have upper and lower endoscopy performed approximately 6 months prior to hospitalization and which did show some Valles's esophagus. Because the patient has significant constipation and had increased shortness of breath over the last 2 days and he has been using his oxygen more frequently came to emergency department for evaluation. CT scan did show severe fecal impaction in the rectum with large amount of stool in the sigmoid and distal descending colon consistent with severe constipation. I also appear to be several loops of fluid-filled ileum representing adynamic ileus. Patient was evaluated by tricot knitter who recommended warm water enemas and possible Gastrografin enema if unsuccessful. Patient was given enemas emergency department apparently he was having stools all night long. Patient cleared his fecal impaction at that time. His home medication was held due to his fecal impaction the patient started developing urine retention. His home medication was resumed. Patient is now urinating. Bladder scans only showing 150 cc left in the bladder. Patient did undergo workup with physical therapy with recommended patient should have home health care for continued management. Speech therapy also evaluated patient and indicated that he should have mechanical soft diet with thin liquids. Patient is very eager to go home. He is now having bowel movements, MiraLAX has been held due to increased bowel movements. He is clinically stable we will plan discharge home accordingly with home health care. Pt Condition on Discharge: Stable Discharge Disposition: Disch w/ Home Health Serv Discharge Time: > 30 minutes Discharge Instructions DIET: Follow Instructions for: Heart Healthy Diet Activities you can perform: Regular-No Restrictions Follow up Referrals: PCP Follow-up - 1 Week New Medications: Calamine-Zinc Oxide (Calamine 8-8 %) 8 %-8 % Lot 1 APPLIC TOPICAL DAILY for wound care for 14 Days, TUBE Continued Medications: Albuterol 18 GM Inh (Ventolin Hfa 18 GM Inh) 90 Mcg/Act Aer 2 PUFF INH QID for 30 Days, INHALER Albuterol 8.5 GM Inh (Proair Hfa 8.5 GM Inh) 90 Mcg/Act Aer 2 PUFF INH Q4-6H PRN for SHORTNESS OF BREATH, #1 INHALER 0 Refills 108 mcg/actuation Bethanechol (Bethanechol) 25 Mg Tab 25 MG PO QID for Urinary Symptom Managemen, TAB 0 Refills Budesonide-Formoterol Inh (Symbicort Inh) 80-4.5 Mcg/Act Aero 2 PUFF INH BID for 30 Days, INHALER Calcium Carbonate (Antacid) (Calcium Carbonate (Antacid)) 500 Mg Chew 500 MG CHEW Q12HR for 30 Days, EA Carvedilol (Carvedilol) 3.125 Mg Tab 3.125 MG PO BID, #60 TAB 0 Refills Cyanocobalamin ER (Vitamin B-12 ER) 2,000 Mcg Tab 2000 MCG PO DAILY, #3 BOTTLE 3 Refills Take one tab daily 30 minutes before a meal Famotidine (Pepcid) 20 Mg Tab 20 MG PO DAILY, #60 TAB [address] (Ferrous Sulfate DR) 324 Mg Tabdr 324 MG PO DAILY for Nutritional Supplement, #30 TAB 0 Refills Folic Acid (Folic Acid) 1 Mg Tablet 1 TAB PO DAILY Ipratropium-Albuterol Neb (Duoneb) 0.5-2.5 Mg/3 Ml Neb 1 AMPULE NEB Q6HR NEB PRN for sob for 30 Days, ML Megestrol (Megestrol) 40 Mg Tab 40 MG PO QID, TAB 0 Refills Omeprazole (Omeprazole) 20 Mg Tab 20 MG PO DAILY, #30 TAB 0 Refills Polyethylene Glycol 3350 Powder (Polyethylene Glycol 3350 Powder) 17 Gm Pow 17 GM PO DAILY for 14 Days Tamsulosin (Flomax) 0.4 Mg Cap 0.8 MG PO DAILY@0600 for 30 Days, CAP Take after a meal Discontinued Medications: Guaifenesin (Guaifenesin ER) 600 Mg Tab.er.12h 1 TAB PO BID Losartan (Losartan) 25 Mg Tab 25 MG PO BID for Blood Pressure Management, #30 TAB 0 Refills Naldo Najera March 20, 2018 11:45
== END 2018-03-20 13:16 | DRG 388 ==
LOC: PHED 13:11 → PHEDA 15:43 → OBSVTOIN 16:03 → PH3A 03-17 10:32
PROVIDERS: ADMIT Hospitalist; ATTEND Hospitalist
PROC: 0DCP7ZZ Extirpation of Matter from Rectum, Via Natural or Artificial Opening (ICD-10-PCS; principal; 2018-03-16)
DX: K56.41 Fecal impaction (principal); G93.41 Metabolic encephalopathy; D61.818 Other pancytopenia; I11.0 Hypertensive heart disease with heart failure; I95.9 Hypotension, unspecified; I50.9 Heart failure, unspecified; K56.0 Paralytic ileus; Z68.1 Body mass index [BMI] 19.9 or less, adult; R63.4 Abnormal weight loss; K22.70 Barrett's esophagus without dysplasia; J44.9 Chronic obstructive pulmonary disease, unspecified; R33.9 Retention of urine, unspecified; E86.0 Dehydration; L98.429 Non-pressure chronic ulcer of back with unspecified severity; Z95.0 Presence of cardiac pacemaker
CPT/HCPCS: 71045; 74177; 80048; 80053; 81001; 82948; 83735; 84100; 85025; 85027; 93005; 94640; 94664; 96374; J2405; J2930; J7030; Q9967

== ENCOUNTER 2018-04-21 14:03 | Inpatient (IN) | payer MEDICARE ==
[~2018-04-21] VITALS: Ht 180.3 cm; Wt 58.0 kg
[2018-04-21] VITALS (12 sets, daily range): BP systolic 110–147; BP diastolic 69–88; PULSE 86–100; RESP 19–29; TEMP 94.5–99.5; O2SAT 93–100
[~2018-04-21 14:03] MED LIST changes: +BETH25TA2 PO; +CALALOT3 TOPICAL; +FAMO1TAB37 PO; -GUAI600T34 PO; -LORA-520 PO; -LOSA25TA PO; -MEDR4PAK PO; +MEGE40TA PO; +OMEP20TA93 PO; -TRAM50TA PO
[2018-04-21] MEDS ORDERED: SODIUM CHLOR 0.9% 1000 ML INJ 1,000 ML IV SCH ×2 (14:14→15:45)
[2018-04-21] MEDS ORDERED: SODIUM CHLORIDE 0.9% FLUSH 10 ML FLUSH IV FLUSH PRN ×2 (14:15→18:00)
--- NOTE | 2018-04-21 14:20 | PD ---
HPI Chief Complaint: Medical Clearance Time Seen by Provider: 14:10 Travel History International Travel<30 days: No Contact w/Intl Traveler<30days: No Traveled to known affect area: No History of Present Illness HPI This is an 87-year-old male who is brought by transportation company who reported that he is a resident at [facility]. The nurse was able to call and it turns out that the patient is actually a resident of [facility]. The report from the nurse over the phone is that the patient has been acting confused and has not been eating or drinking over the past few days. Symptoms are moderate, no aggravating or relieving factors. History is limited secondary to patient altered mental status. When asked any question the patient answers "[facility]." Chart review reveals that the patient has a history of COPD, heart block status post pacemaker, Valles's esophagus, hypertension. It appears that he uses 2 L of oxygen at night according to previous notes. PFSH Past Medical History Cancer: No Cardiovascular Problems: Yes (pacemaker, on b/p meds) High Cholesterol: Yes Chest Pain: No Congestive Heart Failure: Yes COPD: Yes Diabetes: No Diminished Hearing: No Endocrine: No Gastrointestinal Disorders: Yes ("CHRONIC CONSTIPATION) Genitourinary: Yes (PROSTATE) Hepatitis: No Hiatal Hernia: No Hypertension: Yes Immune Disorder: No Implanted Vascular Access Dvce: No Musculoskeletal: No Neurologic: No Psychiatric: No Reproductive: No Respiratory: Yes (copd ) Thyroid Disease: No PNEUMOCCOCAL Vaccine (Year): 1 Past Surgical History Abdominal Surgery: Yes (HERNIA REPAIR X2) Eye Surgery: Yes (BILATERAL CATARACTS) Genitourinary Surgery: Yes (TURP) Joint Replacement: Yes (hip replacement right ) Oral Surgery: Yes (tonsillectomy) Pacemaker: Yes Tonsillectomy: Yes Other Surgery: Yes Social History Alcohol Use: No Tobacco Use: No Substance Use: No Allergies-Medications (Allergen,Severity, Reaction): Coded Allergies: No Known Allergies (Verified Adverse Reaction, Unknown, 03/16/18) Reported Meds & Prescriptions Reported Meds & Active Scripts Active Flomax (Tamsulosin HCl) 0.4 Mg Cap 0.8 Mg PO DAILY@0600 30 Days Take after a meal Vitamin B-12 ER (Cyanocobalamin) 2,000 Mcg Tab 2,000 Mcg PO DAILY Take one tab daily 30 minutes before a meal Polyethylene Glycol 3350 Powder (Polyethylene Glycol) 17 Gm Pow 17 Gm PO DAILY 14 Days Duoneb (Ipratropium-Albuterol Neb) 0.5-2.5 Mg/3 Ml Neb 1 Ampule NEB Q6HR NEB PRN 30 Days Calcium Carbonate (Antacid) 500 Mg Chew 500 Mg CHEW Q12HR 30 Days Symbicort Inh (Budesonide/Formoterol Fumarate) 80-4.5 Mcg/Act Aero 2 Puff INH BID 30 Days Ventolin Hfa 18 GM Inh (Albuterol Sulfate) 90 Mcg/Act Aer 2 Puff INH QID 30 Days Reported Bethanechol 25 Mg Tab 25 Mg PO QID Omeprazole 20 Mg Tab 20 Mg PO DAILY Pepcid (Famotidine) 20 Mg Tab 20 Mg PO DAILY Carvedilol 3.125 Mg Tab 3.125 Mg PO BID Ferrous Sulfate DR (Ferrous Sulfate) 324 Mg Tabdr 324 Mg PO DAILY Folic Acid 1 Mg Tablet 1 Mg PO DAILY Review of Systems ROS Limitations: Altered Mental Status Except as stated in HPI: all other systems reviewed are Neg Physical Exam Exam Limitations: Altered Mental Status Narrative GENERAL: This is an elderly gentleman who is in no acute distress. He is confused. He answers every question with "[facility]" SKIN: Warm and cool. Rectal temperature is 94.9. Some lower extremity contusions are noted. an abrasion on the left lower leg. HEAD: Atraumatic. Normocephalic. EYES: Pupils equal and round. No scleral icterus. No injection or drainage. ENT: No nasal bleeding or discharge. Mucous membranes pink and moist. NECK: Trachea midline. No JVD. CARDIOVASCULAR: Regular rate and rhythm. No murmur appreciated. RESPIRATORY: No accessory muscle use. Mild wheezing. GASTROINTESTINAL: Abdomen soft, non-tender, nondistended. Hepatic and splenic margins not palpable. MUSCULOSKELETAL: No obvious deformities. No clubbing. No cyanosis. No edema. NEUROLOGICAL: Awake and alert. No obvious cranial nerve deficits. Motor grossly within normal limits. Confused. Data Data Last Documented VS Vital Signs Date Time Temp Pulse Resp B/P (MAP) Pulse Ox O2 Delivery O2 Flow Rate FiO2 04/21/18 16:42 96.8 90 29 100 Nasal Cannula 2.00 Orders Orders Electrocardiogram (04/21/18 14:14) Ammonia (04/21/18 14:14) Complete Blood Count With Diff (04/21/18 14:14) Comprehensive Metabolic Panel (04/21/18 14:14) Creatine Kinase (Cpk) (04/21/18 14:14) Urinalysis - C+S If Indicated (04/21/18 14:14) Chest, Single Ap (04/21/18 14:14) Ct Brain W/O Iv Contrast(Rout) (04/21/18 14:14) Blood Glucose (04/21/18 14:14) Ecg Monitoring (04/21/18 14:14) Iv Access Insert/Monitor (04/21/18 14:14) Oximetry (04/21/18 14:14) Sodium Chloride 0.9% Flush (Ns Flush) (04/21/18 14:15) Sodium Chlor 0.9% 1000 Ml Inj (Ns 1000 M (04/21/18 14:14) Magnesium (Mg) (04/21/18 14:14) Lactic Acid Sepsis Protocol (04/21/18 14:14) Blood Culture (04/21/18 14:14) Insert Temp Sensing Short Cath (04/21/18 14:38) Sodium Chlor 0.9% 1000 Ml Inj (Ns 1000 M (04/21/18 15:45) Vancomycin Inj (Vancomycin Inj) (04/21/18 16:45) Piperacil-Tazo 3.375 Gm Premix (Zosyn 3. (04/21/18 16:45) Albuterol-Ipratropium Neb (Duoneb Neb) (04/21/18 16:45) Labs Laboratory Tests Test 04/21/18 14:25 White Blood Count 3.2 TH/MM3 Red Blood Count 3.45 MIL/MM3 Hemoglobin 12.5 GM/DL Hematocrit 39.3 % Mean Corpuscular Volume 114.0 FL Mean Corpuscular Hemoglobin 36.3 PG Mean Corpuscular Hemoglobin Concent 31.9 % Red Cell Distribution Width 16.3 % Platelet Count 58 TH/MM3 Mean Platelet Volume 8.5 FL Neutrophils (%) (Auto) 64.6 % Lymphocytes (%) (Auto) 23.1 % Monocytes (%) (Auto) 12.1 % Eosinophils (%) (Auto) 0.0 % Basophils (%) (Auto) 0.2 % Neutrophils # (Auto) 2.1 TH/MM3 Lymphocytes # (Auto) 0.7 TH/MM3 Monocytes # (Auto) 0.4 TH/MM3 Eosinophils # (Auto) 0.0 TH/MM3 Basophils # (Auto) 0.0 TH/MM3 CBC Comment AUTO DIFF Differential Comment AUTO DIFF CONFIRMED Platelet Estimate LOW Platelet Morphology Comment NORMAL Tear Drop Cells 1+ Ovalocytes 1+ Blood Urea Nitrogen 38 MG/DL Creatinine 1.05 MG/DL Random Glucose 125 MG/DL Total Protein 7.5 GM/DL Albumin 3.8 GM/DL Calcium Level 9.9 MG/DL Magnesium Level 2.9 MG/DL Alkaline Phosphatase 57 U/L Aspartate Amino Transf (AST/SGOT) 37 U/L Alanine Aminotransferase (ALT/SGPT) 26 U/L Total Bilirubin 0.4 MG/DL Sodium Level 148 MEQ/L Potassium Level 4.7 MEQ/L Chloride Level 107 MEQ/L Carbon Dioxide Level 35.0 MEQ/L Anion Gap 6 MEQ/L Estimat Glomerular Filtration Rate 67 ML/MIN Lactic Acid Level 2.4 mmol/L Ammonia 24 MCMOL/L Total Creatine Kinase 137 U/L [facility] Medical Decision Making Medical Screen Exam Complete: Yes Emergency Medical Condition: Yes Medical Record Reviewed: Yes Differential Diagnosis Hyponatremia, sepsis, dehydration, other electrolyte abnormality, CVA, intracranial hemorrhage, meningitis, encephalitis Narrative Course Warming blanket was placed. A Short catheter, temp sensing, was placed. Patient was placed on ECG monitoring pulse oximetry. Lab work, blood cultures, chest x-ray, CT of the brain were obtained. The patient was given IV fluids. Lab work reveals WBC of 3.2, platelet count 58, consistent with his baseline. CMP reveals a sodium of 148, carbon dioxide 35. Lactic acid is elevated at 2.4. Upon reexamination he still has produced only approximately 20 cc of urine. Therefore additional liter fluid bolus has been ordered. The patient will be admitted for delirium, hypothermia. Broad-spectrum antibiotics initiated. Diagnosis Primary Impression: Delirium Additional Impression: Hypothermia Admitting Information Admitting Physician Requests: Admit Wade Carlson Apr 21, 2018 14:20
[2018-04-21 14:53] LABS: AUTOMATED NEUTROPHIL # 2.1 TH/MM3 (1.8-7.7); BASOPHIL % 0.2 % (0.0-2.0); HEMATOCRIT 39.3 % (39.0-51.0); HEMOGLOBIN 12.5 GM/DL (13.0-17.0); LYMPH % 23.1 % (9.0-44.0); LYMPHOCYTE # 0.7 TH/MM3 (1.0-4.8); MEAN CORPUSCULAR HEMOGLOBIN 36.3 PG (27.0-34.0); MEAN CORPUSCULAR HGB CONC 31.9 % (32.0-36.0); MEAN PLATELET VOLUME 8.5 FL (7.0-11.0); MONO % 12.1 % (0.0-8.0); MONOCYTE # 0.4 TH/MM3 (0-0.9); NEUT % 64.6 % (16.0-70.0); PLATELET COUNT 58 TH/MM3 (150-450); RED BLOOD COUNT 3.45 MIL/MM3 (4.50-5.90); RED CELL DISTRIBUTION WIDTH 16.3 % (11.6-17.2); WHITE BLOOD COUNT 3.2 TH/MM3 (4.0-11.0)
[2018-04-21 15:06] LABS: ALBUMIN 3.8 GM/DL (3.4-5.0); ALT (GPT) 26 U/L (12-78); AST (GOT) 37 U/L (15-37); BLOOD UREA NITROGEN 38 MG/DL (7-18); CALCIUM 9.9 MG/DL (8.5-10.1); CHLORIDE 107 MEQ/L (98-107); CREATININE 1.05 MG/DL (0.60-1.30); GLOMERULAR FILTRATION RATE 67 ML/MIN (>89); GLUCOSE,RANDOM 125 MG/DL (74-106); MAGNESIUM 2.9 MG/DL (1.5-2.5); SODIUM (NA) 148 MEQ/L (136-145)
[2018-04-21 15:08] LABS: ALKALINE PHOSPHATASE 57 U/L (45-117); LACTIC ACID SEPSIS PROTOCOL 2.4 mmol/L (0.4-2.0); TOTAL BILIRUBIN ADULT 0.4 MG/DL (0.2-1.0); TOTAL PROTEIN 7.5 GM/DL (6.4-8.2)
[2018-04-21 15:21] LABS: OVALOCYTES 1+ (NORMAL); TEARDROP RBCS 1+ (NORMAL)
--- NOTE | 2018-04-21 16:07 | RADRPT ---
EXAM DATE: 04/21/2018 3:09 PM EDT AGE/SEX: 87 years / Male INDICATIONS: Cough. Possible dehydration. CLINICAL DATA: This is the patient's initial encounter. Patient reports that signs and symptoms have been present for 1 day and indicates a pain score of Nonresponsive. MEDICAL/SURGICAL HISTORY: Chronic obstructive pulmonary disease. Pacemaker. COMPARISON: [facility], CHEST SINGLE AP, 03/16/2018. . FINDINGS: Biapical fibrotic scarring and emphysematous changes are stable. Left subclavian dual lead pacemaker is unchanged in position compared to previous examination. No acute focal infiltrate is noted. No pul monary edema is noted. The heart is stable. CONCLUSION: 1. No significant change compared to 03/16/2018. 2. Stable biapical fibrotic scarring and emphysematous changes. 3. No acute infiltrate or pulmonary vascular congestion. Electronically signed by: Berhane Currie MD 04/21/2018 3:19 PM EDT
[2018-04-21] MEDS ORDERED: VANCOMYCIN INJ 1,000 MG in SODIUM CHLOR 0.9% 250 ML INJ 250 ML IV ONE (16:45)
[2018-04-21] MEDS ORDERED: RESP: ALBUTEROL 2.5 MG/IPRATROPIUM 0.5 MG NEB (SCH) INH ONE (16:45)
[2018-04-21] MEDS ORDERED: PIPERACIL-TAZO 3.375 GM PREMIX 50 ML IV ONE (16:45)
--- NOTE | 2018-04-21 16:46 | RADRPT ---
EXAM DATE: 04/21/2018 4:40 PM EDT AGE/SEX: 87 years / Male INDICATIONS: Altered mental status. CLINICAL DATA: This is the patient's initial encounter. Patient reports that signs and symptoms have been present for 1 day and indicates a pain score of 0/10. MEDICAL/SURGICAL HISTORY: Cardiovascular disease. Hypertension. Chronic obstructive pulmonary dis ease. None. RADIATION DOSE: 47.52 CTDI (mGy) [place] [facility] [place] 01/29/2012. . TECHNIQUE: CT of the head without contrast. Using automated exposure control and adjustment of the mA and/or kV according to patient size, radiation dose was kept as low as reasonably achievable to ob tain optimal diagnostic quality images. FINDINGS: Cerebrum: The ventricles are normal for age. No evidence of midline shift, mass lesion, hemorrhage or acute infarction. No extraaxial fluid collections are seen. Incidental stable basal ganglia calci fications. Posterior Fossa: The cerebellum and brainstem are intact. The 4th ventricle is midline. The cerebe llopontine angle is unremarkable. Extracranial: The visualized portion of the orbits is intact. Skull: The calvaria is intact. No evidence of skull fracture. CONCLUSION: 1. Negative for acute process. Electronically signed by: James Simms MD 04/21/2018 4:45 PM EDT
--- NOTE | 2018-04-21 17:54 | HHI.HP ---
HPI Service [facility] Primary Care Physician Aristides Stewart MD Admission Diagnosis Delirium, hypothermia Diagnoses: Chief Complaint: Confusion Travel History International Travel<30 Days: No Contact w/Intl Traveler <30 Da: No Traveled to Known Affected Are: No History of Present Illness This is an 87-year-old male with past medical history as stated below. The patient is currently confused and unable to provide much history. As per ED documentation the patient was brought in by transportation company who reported that he is a resident of [facility]. The nurse was able to call and find out that the patient sexually resident of [facility]. As per ED physician documentation and verbal signout is that the patient had been acting confused and has not been eating or drinking over the past few days. There are no associated aggravating or alleviating factors. There are no reports of fevers or chills. The rest of the medical history was obtained from previous medical records. The patient's and brother in the room. The patient's brother states that they were told that the patient was encountered covered in feces, he states he was not told he had diarrhea. The patient was also seem to be more confused. Review of Systems As per HPI, other systems reviewed by me and negative. Past Family Social History Past Medical History Obtained from medical records. COPD Heart block s/p pacemaker Valles's esophagus HTN Past Surgical History Unable to obtain from the patient due to mental status. Obtained from medical records. Inguinal hernia repair Pacemaker placement 2013 Tonsillectomy as a child TURP Right hip surgery Reported Medications Reported Meds & Active Scripts Active Flomax (Tamsulosin HCl) 0.4 Mg Cap 0.8 Mg PO DAILY@0600 30 Days Take after a meal Vitamin B-12 ER (Cyanocobalamin) 2,000 Mcg Tab 2,000 Mcg PO DAILY Take one tab daily 30 minutes before a meal Polyethylene Glycol 3350 Powder (Polyethylene Glycol) 17 Gm Pow 17 Gm PO DAILY 14 Days Duoneb (Ipratropium-Albuterol Neb) 0.5-2.5 Mg/3 Ml Neb 1 Ampule NEB Q6HR NEB PRN 30 Days Calcium Carbonate (Antacid) 500 Mg Chew 500 Mg CHEW Q12HR 30 Days Symbicort Inh (Budesonide/Formoterol Fumarate) 80-4.5 Mcg/Act Aero 2 Puff INH BID 30 Days Ventolin Hfa 18 GM Inh (Albuterol Sulfate) 90 Mcg/Act Aer 2 Puff INH QID 30 Days Reported Bethanechol 25 Mg Tab 25 Mg PO QID Omeprazole 20 Mg Tab 20 Mg PO DAILY Pepcid (Famotidine) 20 Mg Tab 20 Mg PO DAILY Carvedilol 3.125 Mg Tab 3.125 Mg PO BID Ferrous Sulfate DR (Ferrous Sulfate) 324 Mg Tabdr 324 Mg PO DAILY Folic Acid 1 Mg Tablet 1 Mg PO DAILY Allergies: Coded Allergies: No Known Allergies (Verified Adverse Reaction, Unknown, 03/16/18) Active Ordered Medications Current Medications Medications (Trade) Dose Ordered Sig/Michela Route Start Time Stop Time Status Last Admin (NS Flush) 2 ml UNSCH PRN IV FLUSH 04/21/18 14:15 Family History Able to obtain due to patient's current mental status. Social History Unable to obtain due to confusion. As per medical records the patient does not smoke or drink. Physical Exam Vital Signs Vital Signs Date Time Temp Pulse Resp B/P (MAP) Pulse Ox O2 Delivery O2 Flow Rate FiO2 04/21/18 17:24 97.3 92 19 110/73 (85) 100 Nasal Cannula 1.00 04/21/18 16:42 96.8 90 29 100 Nasal Cannula 2.00 04/21/18 15:15 92 Nasal Cannula 2.00 04/21/18 15:15 95.4 86 22 145/80 (101) 98 Nasal Cannula 2.00 04/21/18 14:27 93 Room Air 04/21/18 14:20 94.9 88 20 140/69 (92) 100 Room Air 04/21/18 14:06 88 20 100 Physical Exam GENERAL: Very thin and malnourished, no respiratory distress observed. Lethargic. SKIN: No rashes, ecchymoses or lesions. Cool and dry. HEAD: Atraumatic. Normocephalic. No temporal or scalp tenderness. EYES: Pupils equal round and reactive. Extraocular motions intact. No scleral icterus. No injection or drainage. ENT: Nose without bleeding, purulent drainage or septal hematoma. Throat without erythema, tonsillar hypertrophy or exudate. Uvula midline. Airway patent. NECK: Trachea midline. No JVD or lymphadenopathy. Supple, nontender, no meningeal signs. CARDIOVASCULAR: Regular rate and rhythm without murmurs, gallops, or rubs. RESPIRATORY: Clear to auscultation. Breath sounds equal bilaterally. No wheezes , rales, or rhonchi. GASTROINTESTINAL: Abdomen soft, non-tender, nondistended. No hepato-splenomegaly , or palpable masses. No guarding. MUSCULOSKELETAL: Extremities without clubbing, cyanosis, or edema. No joint tenderness, effusion, or edema noted. No calf tenderness. Negative Homans sign bilaterally. NEUROLOGICAL: Lethargic, barely arousable. Withdraws all 4 extremities to pain. Laboratory Laboratory Tests Test 04/21/18 14:25 White Blood Count 3.2 Red Blood Count 3.45 Hemoglobin 12.5 Hematocrit 39.3 Mean Corpuscular Volume 114.0 Mean Corpuscular Hemoglobin 36.3 Mean Corpuscular Hemoglobin Concent 31.9 Red Cell Distribution Width 16.3 Platelet Count 58 Mean Platelet Volume 8.5 Neutrophils (%) (Auto) 64.6 Lymphocytes (%) (Auto) 23.1 Monocytes (%) (Auto) 12.1 Eosinophils (%) (Auto) 0.0 Basophils (%) (Auto) 0.2 Neutrophils # (Auto) 2.1 Lymphocytes # (Auto) 0.7 Monocytes # (Auto) 0.4 Eosinophils # (Auto) 0.0 Basophils # (Auto) 0.0 CBC Comment AUTO DIFF Differential Comment AUTO DIFF CONFIRMED Platelet Estimate LOW Platelet Morphology Comment NORMAL Tear Drop Cells 1+ Ovalocytes 1+ Blood Urea Nitrogen 38 Creatinine 1.05 Random Glucose 125 Total Protein 7.5 Albumin 3.8 Calcium Level 9.9 Magnesium Level 2.9 Alkaline Phosphatase 57 Aspartate Amino Transf (AST/SGOT) 37 Alanine Aminotransferase (ALT/SGPT) 26 Total Bilirubin 0.4 Sodium Level 148 Potassium Level 4.7 Chloride Level 107 Carbon Dioxide Level 35.0 Anion Gap 6 Estimat Glomerular Filtration Rate 67 Lactic Acid Level 2.4 Ammonia 24 Total Creatine Kinase 137 Date/Time Source Procedure Growth Status 04/21/18 14:30 Blood Peripheral Aerobic Blood Culture Pending Received 04/21/18 14:30 Blood Peripheral Anaerobic Blood Culture Pending Received Result Diagram: 04/21/18 1425 04/21/18 1425 Imaging Last Impressions Head CT 04/21/181413 Signed Impressions: CONCLUSION: 1. Negative for acute process. Chest X-Ray 04/21/181413 Signed Impressions: CONCLUSION: 1. No significant change compared to 03/16/2018. 2. Stable biapical fibrotic scarring and emphysematous changes. 3. No acute infiltrate or pulmonary vascular congestion. Images reviewed by me. Teofilorini VTE Risk Assessment Caprini VTE Risk Assessment: Mod/High Risk (score >= 2) Caprini Risk Assessment Model Point Value = 1 Point Value = 2 Point Value = 3 Point Value = 5 Age 41-60 Minor surgery BMI > 25 kg/m2 Swollen legs Varicose veins or History of unexplained or recurrent spontaneous Oral contraceptives or hormone replacement Sepsis (< 1 month) Serious lung disease, including pneumonia (< 1 month) Abnormal pulmonary function Acute myocardial infarction Congestive heart failure (< 1 month) History of inflammatory bowel disease Medical patient at bed rest Age 61-74 Arthroscopic surgery Major open surgery (> 45 min) Laparoscopic surgery (> 45 min) Malignancy Confined to bed (> 72 hours) Immobilizing plaster cast Central venous access Age >= 75 History of VTE Family history of VTE Factor V Leiden Prothrombin [id number] Lupus anticoagulant Anticardiolipin antibodies Elevated serum homocysteine Heparin-induced thrombocytopenia Other congenital or acquired thrombophilia Stroke (< 1 month) Elective arthroplasty Hip, pelvis, or leg fracture Acute spinal cord injury (< 1 month) Prophylaxis Regimen Total Risk Factor Score Risk Level Prophylaxis Regimen 0-1 Low Early ambulation 2 Moderate Order ONE of the following: *Sequential Compression Device (SCD) *Heparin 5000 units SQ BID 3-4 Higher Order ONE of the following medications: *Heparin 5000 units SQ TID *Enoxaparin/Lovenox 40 mg SQ daily (WT < 150 kg, CrCl > 30 mL/min) *Enoxaparin/Lovenox 30 mg SQ daily (WT < 150 kg, CrCl > 10-29 mL/min) *Enoxaparin/Lovenox 30 mg SQ BID (WT < 150 kg, CrCl > 30 mL/min) AND/OR *Sequential Compression Device (SCD) 5 or more Highest Order ONE of the following medications: *Heparin 5000 units SQ TID (Preferred with Epidurals) *Enoxaparin/Lovenox 40 mg SQ daily (WT < 150 kg, CrCl > 30 mL/min) *Enoxaparin/Lovenox 30 mg SQ daily (WT < 150 kg, CrCl > 10-29 mL/min) *Enoxaparin/Lovenox 30 mg SQ BID (WT < 150 kg, CrCl > 30 mL/min) AND *Sequential Compression Device (SCD) Assessment and Plan Problem List: (1) Hypothermia ICD Code: T68.XXXA - Hypothermia, initial encounter (2) Pancytopenia ICD Code: D61.818 - Other pancytopenia Status: Chronic (3) COPD (chronic obstructive pulmonary disease) ICD Code: J44.9 - Chronic obstructive pulmonary disease Status: Chronic (4) HTN (hypertension) ICD Code: I10 - Essential (primary) hypertension (5) H/O heart block ICD Code: Z86.79 - Personal history of other diseases of the circulatory system Status: Chronic Assessment and Plan Admit the patient to intensive care unit I will place on one fourth normal saline since there is mild hypernatremia. Order 1 L IV bolus since the patient is now hypotensive with systolic blood pressure in the 90s. Monitor on telemetry. IV vancomycin IV Zosyn. Suspected SIRS syndrome with hypothermia and heart rate more than 90, source unknown. As per RN unable to reduce during yet. Hold antihypertensive medications Continue Symbicort, DuoNeb We will check an ABG given encephalopathy which is likely due to metabolic encephalopathy. We will start the patient IV steroids since there is decreased air entry bilaterally and as per RN report the patient was wheezing earlier. Lactic acid elevated on admission at 2.4. Repeat lactic acid at 1.6. We will place on Lovenox and SCDs for DVT prophylaxis. Discussed Condition With ED physician, RN. Physician Certification 2 Midnight Certification Type: Admission for Inpatient Services Order for Inpatient Services The services are ordered in accordance with Medicare regulations or non- Medicare payer requirements, as applicable. In the case of services not specified as inpatient-only, they are appropriately provided as inpatient services in accordance with the 2-midnight benchmark. Estimated LOS (days): 2 days is the estimated time the patient will need to remain in the hospital, assuming treatment plan goals are met and no additional complications. Post-Hospital Plan: Not yet determined Solomon Sparks MD Apr 21, 2018 17:54
[2018-04-21] MEDS ORDERED: SENNOSIDES 8.6 MG TAB PO PRN (18:00)
[2018-04-21] MEDS ORDERED: NALOXONE HCL 0.4 MG/ML AMP IV PUSH PRN (18:00)
[2018-04-21] MEDS ORDERED: LACTULOSE SYRUP 20 GM/30 ML CUP PO PRN (18:00)
[2018-04-21] MEDS ORDERED: ACETAMINOPHEN 325 MG TAB PO PRN (18:00)
[2018-04-21] MEDS ORDERED: BISACODYL 10 MG SUPP RECTAL PRN (18:00)
[2018-04-21] MEDS ORDERED: MAGNESIUM HYDROXIDE SUSP 30 ML CUP PO PRN (18:00)
[2018-04-21] MEDS ORDERED: Vancomycin Consult Pharmacy 1 EA OTHER SCH (18:15)
[2018-04-21 18:51] LABS: BACTERIA, URINE MOD /hpf; BLOOD, URINE MOD (NEG); GLUCOSE,URINE NEG (NEG); HYALINE CAST, URINE 42 /lpf (RARE); KETONE, URINE TRACE mg/dL (NEG); MUCUS URINE FEW /lpf (OCC); NITRITE,URINE NEG (NEG); SQUAMOUS EPITHELIAL CELL URINE 2 /hpf (0-5); URINE COLOR DARK-YELLOW (YELLW/STRAW); URINE LEUKOCYTE ESTERASE NEG (NEG); WHITE BLOOD CELL CLUMPS RARE
[2018-04-21] MEDS ORDERED: SODIUM CHLORIDE 23.4% INJ 38.5 MEQ in WATER STERILE FOR INJ 1,000 ML IV SCH (19:00)
[2018-04-21 19:01] LABS: BILIRUBIN, URINE NEG (NEG)
[2018-04-21] MEDS: ENOXAPARIN SODIUM 60 MG/0.6 ML SYRINGE SQ SCH (20:00)
[2018-04-21] MEDS ORDERED: methylPREDNISolone SOD SUCC 125 MG/2 ML VIAL IV PUSH ONE (20:00)
[2018-04-21] MEDS: SODIUM CHLORIDE 0.9% FLUSH 10 ML FLUSH IV FLUSH SCH (21:00)
[2018-04-21] MEDS: DOCUSATE SODIUM 50 MG/SENNA 8.6 MG TAB PO SCH (21:00)
[2018-04-21] MEDS ORDERED: CHLORHEXIDINE GLUCONATE 2 % 1 PACK (2 CLOTHS)(extra cloths) TOPICAL PRN (23:00)
[2018-04-22] VITALS (14 sets, daily range): BP systolic 132–161; BP diastolic 62–89; PULSE 79–102; RESP 25–37; O2SAT 87–100
[2018-04-22] MEDS: PIPERACIL-TAZO 4.5 GM PREMIX 100 ML IV SCH ×3 (02:01→16:28)
[2018-04-22] MEDS: CHLORHEXIDINE GLUCONATE 2 % 1 PACK (2 CLOTHS)(taper/protocol) TOPICAL SCH (04:00)
[2018-04-22 04:07] LABS: BASOPHIL % 0.2 % (0.0-2.0); HEMATOCRIT 31.1 % (39.0-51.0); HEMOGLOBIN 10.2 GM/DL (13.0-17.0); LYMPH % 15.4 % (9.0-44.0); LYMPHOCYTE # 0.4 TH/MM3 (1.0-4.8); MEAN CELL VOLUME 113.8 FL (80.0-100.0); MEAN CORPUSCULAR HEMOGLOBIN 37.3 PG (27.0-34.0); MEAN CORPUSCULAR HGB CONC 32.8 % (32.0-36.0); MEAN PLATELET VOLUME 8.5 FL (7.0-11.0); MONO % 4.7 % (0.0-8.0); MONOCYTE # 0.1 TH/MM3 (0-0.9); NEUT % 79.7 % (16.0-70.0); PLATELET COUNT 50 TH/MM3 (150-450); RED BLOOD COUNT 2.74 MIL/MM3 (4.50-5.90); RED CELL DISTRIBUTION WIDTH 16.5 % (11.6-17.2); WHITE BLOOD COUNT 2.5 TH/MM3 (4.0-11.0)
[2018-04-22 04:30] LABS: ALBUMIN 3.1 GM/DL (3.4-5.0); ALT (GPT) 20 U/L (12-78); AST (GOT) 34 U/L (15-37); BICARBONATE 28.9 MEQ/L (21.0-32.0); BLOOD UREA NITROGEN 39 MG/DL (7-18); CALCIUM 8.5 MG/DL (8.5-10.1); CHLORIDE 111 MEQ/L (98-107); CREATININE 1.13 MG/DL (0.60-1.30); GLOMERULAR FILTRATION RATE 62 ML/MIN (>89); GLUCOSE,RANDOM 119 MG/DL (74-106); SODIUM (NA) 150 MEQ/L (136-145)
[2018-04-22 04:31] LABS: ALKALINE PHOSPHATASE 47 U/L (45-117); TOTAL BILIRUBIN ADULT 1.3 MG/DL (0.2-1.0); TOTAL PROTEIN 6.2 GM/DL (6.4-8.2)
[2018-04-22 05:15] LABS: OVALOCYTES 1+ (NORMAL)
[2018-04-22 05:16] LABS: KERATOCYTES OCC (NORMAL)
[2018-04-22] MEDS ORDERED: POTASSIUM CHLORIDE INJ 20 MEQ in DEXTROSE 5% IN WATE 1000ML INJ 1,000 ML IV SCH ×2 (08:30)
[2018-04-22] MEDS: SODIUM CHLORIDE 0.9% FLUSH 10 ML FLUSH IV FLUSH SCH ×2 (08:30→20:49)
[2018-04-22] MEDS: DOCUSATE SODIUM 50 MG/SENNA 8.6 MG TAB PO SCH ×2 (09:00→20:49)
--- NOTE | 2018-04-22 10:17 | HHI.PR ---
Subjective Remarks Discussed the case with RN. Patient is more awake. Failed dysphagia eval Sodium slightly worst Patient denies cp, sob at baseline Denies fevers or chills States does not remmember what happened before. Objective Vitals Vital Signs Date Time Temp Pulse Resp B/P (MAP) Pulse Ox O2 Delivery O2 Flow Rate FiO2 04/22/18 09:46 96 Nasal Cannula 2.00 04/22/18 06:00 89 04/22/18 04:00 102 04/22/18 04:00 99.1 102 34 161/89 (113) 87 04/22/18 02:00 85 04/22/18 00:00 99.7 79 37 137/62 (87) 100 04/22/18 00:00 79 04/21/18 22:00 90 04/21/18 21:45 99.5 100 20 147/88 (107) 94 04/21/18 21:28 04/21/18 20:14 100 Nasal Cannula 1.00 04/21/18 19:56 99.1 93 24 133/69 (90) 97 Nasal Cannula 2.00 04/21/18 18:18 98 Nasal Cannula 1.00 04/21/18 17:24 97.3 92 19 110/73 (85) 100 Nasal Cannula 1.00 04/21/18 16:42 96.8 90 29 100 Nasal Cannula 2.00 04/21/18 15:15 92 Nasal Cannula 2.00 04/21/18 15:15 95.4 86 22 145/80 (101) 98 Nasal Cannula 2.00 04/21/18 14:27 93 Room Air 04/21/18 14:22 94.5 04/21/18 14:20 94.9 88 20 140/69 (92) 100 Room Air 04/21/18 14:06 88 20 100 I/O 04/21/18 04/21/18 04/21/18 04/22/18 04/22/18 04/22/18 07:00 15:00 23:00 07:00 15:00 23:00 Intake Total 2300 ml 1100 ml Output Total 200 ml Balance 2300 ml -200 ml 1100 ml Intake IV Total 2300 ml 1100 ml Output Urine Total 200 ml Result Diagram: 04/22/18 0310 04/22/18 0310 Imaging Last Impressions Head CT 04/21/18 1414 Signed Impressions: CONCLUSION: 1. Negative for acute process. Chest X-Ray 04/21/18 1414 Signed Impressions: CONCLUSION: 1. No significant change compared to 03/16/2018. 2. Stable biapical fibrotic scarring and emphysematous changes. 3. No acute infiltrate or pulmonary vascular congestion. Objective Remarks AAOx1 NAD on nasal canula Diminished breath sounds BL Abdomen soft, nt, nd no edema inlower extremities A/P Problem List: (1) Hypothermia ICD Code: T68.XXXA - Hypothermia, initial encounter Plan: Only secondary to sepsis due to urinary tract infection present on admission. With heart rate more than 90, hypothermia and UTI. Continue broad-spectrum IV antibiotics. Continue IV fluids -will discontinue one fourth normal saline and start the patient on D5 water given that sodium is trending up. Follow-up blood and urine cultures which are still pending. (2) Pancytopenia ICD Code: D61.818 - Other pancytopenia Status: Chronic Plan: Chronic pancytopenia. Patient has been seen previously by hematology. At the time patient had B12 deficiency. Last B12 on medical records is 950 is within normal range. Bilirubin slightly elevated, I will order coag profile. Check vitamin B12 and consult hematology. (3) COPD (chronic obstructive pulmonary disease) ICD Code: J44.9 - Chronic obstructive pulmonary disease Status: Chronic Plan: Patient does not seem to be on acute exacerbation. The patient status post dose of Solu-Medrol 125 mg IV on admission. Continue duonebs every 2 hours as needed for shortness of breath. (4) HTN (hypertension) ICD Code: I10 - Essential (primary) hypertension Plan: Hypertensive medications were held on admission. The patient is n.p.o. so we will continue to hold. I will place the patient on labetalol IV as needed for systolic blood pressure more than 160 (5) H/O heart block ICD Code: Z86.79 - Personal history of other diseases of the circulatory system Status: Chronic Plan: With a permanent pacemaker. Continue to monitor on telemetry. (6) Hypernatremia ICD Code: E87.0 - Hyperosmolality and hypernatremia Plan: Sodium trending up. Discontinue off for normal saline and placed on D5 water. Continue to monitor BMP. (7) Encephalopathy acute ICD Code: G93.40 - Encephalopathy, unspecified Status: Acute Plan: Patient encephalopathic admission. Likely secondary to metabolic encephalopathy secondary to urinary tract infection as urinalysis positive. Patient is more awake and alert, encephalopathy is improving and resolving. Continue treatment as above. Continue to monitor neurological status. Assessment and Plan Continue Lovenox for DVT prophylaxis. Discharge Planning Continue to monitor in intensive care unit. Problem Qualifiers (1) COPD (chronic obstructive pulmonary disease): Qualified Codes: J42 - Unspecified chronic bronchitis (2) HTN (hypertension): Qualified Codes: I10 - Essential (primary) hypertension Solomon Sparks MD Apr 22, 2018 10:17
[2018-04-22] MEDS: D5W + KCL 20 MEQ INJ 1,000 ML IV SCH ×2 (10:18→20:49)
--- NOTE | 2018-04-22 15:10 | HHI.PR ---
Addendum to Inpatient Note Addendum Reason: Additional Documentation Additional Information Saw and examined Mr. Ferreira. Feels "okay but tired." Weakness and confusion improving. No chest pain or shortness of breath. Gen: Thin/underweight elderly white male lying in bed, NAD Skin: Cool and dry, poor turgor Head: NC/AT ENT: MMM CV: NRRR, normal S1/S2, no MRG Lungs: Normal rate and effort, clear breath sounds anteriorly MSK: No cyanosis or edema Neuro: Awake, alert. Oriented x3. Normal attention. Normal speech. A/P Spoke with Dr. Hicks who agreed to transfer care of patient over to resident service (Dr. Julissa Alcala is PCP). Orders reviewed, agree with plan as documented by Dr. Hicks this morning. Removed restraints due to improving mental status. sdw Dr. Alcala (Estuardo Zamora MD R2) Additional Information Pt seen, examined and discussed with Dr. Zamora. He is well-known to me for years, was recently admitted to [facility] in [facility] with his . His is demented and apparently he has not been eating much the past few days, though today he voices appreciation for being in [facility] stating that it is much better than at home. We will follow him here in the hospital and clarify his code status with daughter Isatu. (Julissa Alcala MD) Estuardo Zamora MD R2 Apr 22, 2018 15:10 Julissa Alcala MD Apr 22, 2018 16:09
[2018-04-22] MEDS ORDERED: VANCOMYCIN INJ 1,000 MG in SODIUM CHLOR 0.9% 250 ML INJ 250 ML IV SCH (17:00)
--- NOTE | 2018-04-22 18:35 | EKG ---
Date Performed: 04/21/2018 Time Performed: 14:35:49 PTAGE: 87 years EKG: ELECTRONIC VENTRICULAR PACEMAKER ABNORMAL RHYTHM ECG PREVIOUS TRACING : 03/16/2018 16.58 Since the previous tracing, no significant change noted DOCTOR: Mirna Rodríguez Interpretating Date/Time 04/22/2018 18:34:20
[2018-04-22] MEDS: ENOXAPARIN SODIUM 60 MG/0.6 ML SYRINGE SQ SCH (20:00)
[2018-04-23] VITALS (13 sets, daily range): BP systolic 97–144; BP diastolic 53–78; PULSE 66–90; RESP 19–29; TEMP 97.7–98.5; O2SAT 95–100
[2018-04-23] MEDS: RESP: ALBUTEROL 2.5 MG/IPRATROPIUM 0.5 MG NEB (PRN) NEB ×2 (00:59→11:37)
[2018-04-23] MEDS: CHLORHEXIDINE GLUCONATE 2 % 1 PACK (2 CLOTHS)(taper/protocol) TOPICAL SCH ×2 (02:19→20:28)
[2018-04-23] MEDS: PIPERACIL-TAZO 4.5 GM PREMIX 100 ML IV SCH ×2 (02:19→08:06)
[2018-04-23 04:38] LABS: AUTOMATED NEUTROPHIL # 2.1 TH/MM3 (1.8-7.7); BASOPHIL % 0.2 % (0.0-2.0); HEMATOCRIT 28.5 % (39.0-51.0); HEMOGLOBIN 9.5 GM/DL (13.0-17.0); LYMPH % 24.9 % (9.0-44.0); LYMPHOCYTE # 0.9 TH/MM3 (1.0-4.8); MEAN CELL VOLUME 112.4 FL (80.0-100.0); MEAN CORPUSCULAR HEMOGLOBIN 37.3 PG (27.0-34.0); MEAN CORPUSCULAR HGB CONC 33.2 % (32.0-36.0); MEAN PLATELET VOLUME 8.3 FL (7.0-11.0); MONO % 18.2 % (0.0-8.0); MONOCYTE # 0.7 TH/MM3 (0-0.9); NEUT % 56.7 % (16.0-70.0); PLATELET COUNT 39 TH/MM3 (150-450); RED BLOOD COUNT 2.53 MIL/MM3 (4.50-5.90); RED CELL DISTRIBUTION WIDTH 16.7 % (11.6-17.2); WHITE BLOOD COUNT 3.7 TH/MM3 (4.0-11.0)
[2018-04-23 05:19] LABS: OVALOCYTES 1+ (NORMAL)
[2018-04-23] MEDS: SODIUM CHLORIDE 0.9% FLUSH 10 ML FLUSH IV FLUSH SCH ×2 (08:06→19:50)
[2018-04-23] MEDS: DOCUSATE SODIUM 50 MG/SENNA 8.6 MG TAB PO SCH ×2 (08:06→20:28)
[2018-04-23 10:48] LABS: CREATININE 0.91 MG/DL (0.60-1.30)
[2018-04-23 10:58] LABS: BICARBONATE 31.3 MEQ/L (21.0-32.0); CALCIUM 8.2 MG/DL (8.5-10.1)
[2018-04-23] MEDS: D5W + KCL 20 MEQ INJ 1,000 ML IV SCH ×2 (12:50→20:29)
[2018-04-23] MEDS: METOCLOPRAMIDE HCL SYRUP 10 MG/10 ML UDC PO SCH ×2 (13:16→18:16)
--- NOTE | 2018-04-23 13:26 | HHI.FPPN ---
Subjective Remarks Patient seen and intensive care with . Discussed with the speech therapist who was present at the bedside and recommends pured diet with nectar thick liquids. Sedrick states today that he has no recall of events that brought him to the hospital. However, he requests to be transferred to a regular room, and he wishes me to call his to let her know how he is doing and that I am seeing him in the hospital. He clearly states that he wants no interventions whatsoever should his heart stop, and I included chest compressions, intubation , shocking, medications and he declines all of these. He and I have discussed these wishes at length in the past in the clinic and he has held firm and does not want his children or anyone else speaking for him in this regard. He is not having any pain, and would like to be able to eat a little bit better. He feels as though his breathing is at baseline. Objective Vitals Vital Signs Date Time Temp Pulse Resp B/P (MAP) Pulse Ox O2 Delivery O2 Flow Rate FiO2 04/23/18 11:37 100 Nasal Cannula 2.00 04/23/18 10:00 77 04/23/18 08:00 98.5 68 24 97/53 (68) 98 04/23/18 08:00 68 04/23/18 06:00 76 04/23/18 04:00 98.8 74 26 107/61 (76) 99 04/23/18 04:00 79 04/23/18 02:00 66 04/23/18 00:00 89 04/23/18 00:00 98.8 89 19 144/78 (100) 98 04/22/18 22:00 98 04/22/18 21:01 96 Nasal Cannula 2.00 04/22/18 20:00 91 04/22/18 20:00 99.1 91 25 155/77 (103) 90 04/22/18 18:00 90 04/22/18 16:00 96 04/22/18 16:00 99.7 96 30 146/70 (95) 100 04/22/18 14:00 91 I/O 04/22/18 04/22/18 04/22/18 04/23/18 04/23/18 04/23/18 07:00 15:00 23:00 07:00 15:00 23:00 Intake Total 2100 ml 2043 ml 100 ml 100 ml Output Total 200 ml 375 ml 575 ml Balance -200 ml 2100 ml 1668 ml -475 ml 100 ml Intake Oral 0 ml 0 ml IV Total 2100 ml 2043 ml 100 ml 100 ml Output Urine Total 200 ml 375 ml 575 ml # Bowel Movements 1 1 Result Diagram: 04/23/18 0340 04/23/18 0750 Other Results 04/23/18 04/23/18 04/24/18 15:00 23:00 07:00 Intake Total 100 ml Balance 100 ml IV Total 100 ml Microbiology Date/Time Source Procedure Growth Status 04/21/18 14:30 Blood Peripheral Aerobic Blood Culture - Preliminary NO GROWTH IN 2 DAYS Resulted 04/21/18 14:30 Blood Peripheral Anaerobic Blood Culture - Preliminary NO GROWTH IN 2 DAYS Resulted 04/21/18 17:25 Urine Catheterized Urine Urine Culture - Final NO GROWTH IN 48 HOURS. Complete Imaging Last Impressions Head CT 04/21/18 141 Signed Impressions: CONCLUSION: 1. Negative for acute process. Chest X-Ray 04/21/18 141 Signed Impressions: CONCLUSION: 1. No significant change compared to 03/16/2018. 2. Stable biapical fibrotic scarring and emphysematous changes. 3. No acute infiltrate or pulmonary vascular congestion. A/P Assessment and Plan Altered mental status due to poor nutrition and inadequate fluid intake. He will be transferred to the regular hospital floor, and we have started pur ed diet with nectar thick liquids and Reglan. His urine cultures are negative and his antibiotics have been stopped. I contacted his at both phone numbers and left message that he was being seen by me in the hospital and that he was improving and doing better. Problem List: (1) Hypothermia Resolved (2) Pancytopenia ICD Code: D61.818 - Other pancytopenia Status: Chronic Stable (3) COPD (chronic obstructive pulmonary disease) ICD Code: J44.9 - Chronic obstructive pulmonary disease Status: Chronic Plan: Patient does not seem to be on acute exacerbation. Continue duonebs every 2 hours as needed for shortness of breath. (4) HTN (hypertension) ICD Code: I10 - Essential (primary) hypertension Plan: Hypertensive medications were held on admission. He has been hypo-or normotensive since admission, we will continue to hold his antihypertensive medications. (5) H/O heart block ICD Code: Z86.79 - Personal history of other diseases of the circulatory system Status: Chronic Plan: With a permanent pacemaker. Discontinue telemetry (6) Hypernatremia ICD Code: E87.0 - Hyperosmolality and hypernatremia Plan: Resolved (7) Encephalopathy acute ICD Code: G93.40 - Encephalopathy, unspecified Status: Resolving Plan: Continue to reorient Assessment and Plan Continue Lovenox for DVT prophylaxis. Discharge Planning Transfer to regular floor. At discharge, patient will be transferred back to his assisted living facility with his . Problem Qualifiers (1) COPD (chronic obstructive pulmonary disease): Qualified Codes: J42 - Unspecified chronic bronchitis (2) HTN (hypertension): Qualified Codes: I10 - Essential (primary) hypertension Attending Attestation Patient seen and examined. Case reviewed and discussed with the resident team. Agree with plan of care as discussed with me and documented in the resident note. Julissa Alcala MD Apr 23, 2018 13:26
[2018-04-23] MEDS ORDERED: PHARMACY ORDERED LAB ONE (16:45)
[2018-04-23] MEDS: ENOXAPARIN SODIUM 60 MG/0.6 ML SYRINGE SQ SCH (19:50)
[2018-04-24] VITALS (10 sets, daily range): BP systolic 112–157; BP diastolic 60–90; PULSE 67–89; RESP 18–27; TEMP 97.8–98.8; O2SAT 92–100
[2018-04-24] MEDS: DOCUSATE SODIUM 50 MG/SENNA 8.6 MG TAB PO SCH ×2 (08:00→21:10)
[2018-04-24] MEDS: METOCLOPRAMIDE HCL SYRUP 10 MG/10 ML UDC PO SCH ×2 (08:00→12:00)
[2018-04-24] MEDS: SODIUM CHLORIDE 0.9% FLUSH 10 ML FLUSH IV FLUSH SCH ×2 (08:00→21:10)
[2018-04-24] MEDS: RESP: ALBUTEROL 2.5 MG/IPRATROPIUM 0.5 MG NEB (PRN) NEB (09:32)
[2018-04-24 11:44] LABS: AUTOMATED NEUTROPHIL # 1.2 TH/MM3 (1.8-7.7); BASOPHIL % 0.2 % (0.0-2.0); EOSINOPHIL % 1.3 % (0.0-4.0); HEMATOCRIT 26.9 % (39.0-51.0); LYMPH % 39.5 % (9.0-44.0); MEAN CELL VOLUME 111.4 FL (80.0-100.0); MEAN CORPUSCULAR HEMOGLOBIN 37.1 PG (27.0-34.0); MEAN CORPUSCULAR HGB CONC 33.3 % (32.0-36.0); MEAN PLATELET VOLUME 8.3 FL (7.0-11.0); MONO % 14.3 % (0.0-8.0); MONOCYTE # 0.4 TH/MM3 (0-0.9); NEUT % 44.7 % (16.0-70.0); PLATELET COUNT 39 TH/MM3 (150-450); RED BLOOD COUNT 2.42 MIL/MM3 (4.50-5.90); RED CELL DISTRIBUTION WIDTH 15.8 % (11.6-17.2); WHITE BLOOD COUNT 2.6 TH/MM3 (4.0-11.0)
[2018-04-24 12:15] LABS: BICARBONATE 34.7 MEQ/L (21.0-32.0); CALCIUM 7.9 MG/DL (8.5-10.1); CREATININE 0.64 MG/DL (0.60-1.30)
[2018-04-24 12:17] LABS: LYMPHOCYTES 38 % (9-44); MONOCYTES 10 % (0-8); MYELOCYTES 1 % (0-0); NEUTROPHIL # MANUAL DIFF 1.4 TH/MM3 (1.8-7.7); POLYS (SEG NEUTROPHILS) 51 % (16-70)
--- NOTE | 2018-04-24 13:45 | HHI.FPPN ---
Subjective Remarks 87 yo with chronic anemia / leukopenia admitted for altered mental status and hyponatremia. Mental status stable today, though still slightly confused. Intermittent non-bothersome hallucinations. No chest pain, SOB, abdominal pain. (Estuardo Zamora MD R2) Objective Vitals Vital Signs Date Time Temp Pulse Resp B/P (MAP) Pulse Ox O2 Delivery O2 Flow Rate FiO2 04/24/18 12:00 88 04/24/18 10:00 84 04/24/18 09:32 98 Nasal Cannula 2.00 04/24/18 08:00 67 04/24/18 08:00 97.9 67 22 116/90 (99) 100 04/24/18 06:00 72 04/24/18 04:00 98.1 72 23 129/74 (92) 95 04/24/18 04:00 86 04/24/18 02:00 70 04/24/18 00:00 98.0 71 27 112/61 (78) 97 04/24/18 00:00 79 04/23/18 22:00 69 04/23/18 20:00 90 04/23/18 20:00 97.7 90 28 140/60 (86) 97 04/23/18 18:00 67 04/23/18 16:00 79 04/23/18 16:00 98.3 79 26 113/56 (75) 95 04/23/18 14:00 79 I/O 04/23/18 04/23/18 04/23/18 04/24/18 04/24/18 04/24/18 07:00 15:00 23:00 07:00 15:00 23:00 Intake Total 100 ml 100 ml 1675 ml 120 ml Output Total 575 ml 372 ml Balance -475 ml 100 ml 1303 ml 120 ml Intake Oral 0 ml 675 ml 120 ml IV Total 100 ml 100 ml 1000 ml Output Urine Total 575 ml 372 ml # Voids 2 # Bowel Movements 1 1 1 (Estuardo Zamora MD R2) Result Diagram: 04/24/18 1046 04/24/18 1046 Imaging Last Impressions Head CT 04/21/18 1414 Signed Impressions: CONCLUSION: 1. Negative for acute process. Chest X-Ray 04/21/18 141 Signed Impressions: CONCLUSION: 1. No significant change compared to 03/16/2018. 2. Stable biapical fibrotic scarring and emphysematous changes. 3. No acute infiltrate or pulmonary vascular congestion. Objective Remarks Gen: Thin elderly white male sitting up in bed, comfortable, NAD Head: NC/AT CV: NRRR, normal S1/S2, no murmur Lungs: Normal rate and effort. Diffuse mild/faint end expiratory wheezing most prominent at bases MSK: No edema Neuro: Awake, alert. Oriented to person. Knew year, thought it was Aug 06. Thought it was a building for "recovering alcoholics/addicts." Cranial nerves and motor function grossly intact. Medications and IVs Current Medications Medications (Trade) Dose Ordered Sig/Michela Route Start Time Stop Time Status Last Admin (NS Flush) 2 ml UNSCH PRN IV FLUSH 04/21/18 18:00 (NS Flush) 2 ml BID IV FLUSH 04/21/18 21:00 04/23/18 08:06 (Tylenol) 650 mg Q4H PRN PO 04/21/18 18:00 (Lovenox Inj) 40 mg Q24H SQ 04/21/18 20:00 (Narcan Inj) 0.4 mg UNSCH PRN IV PUSH 04/21/18 18:00 (Mikala-Colace) 1 tab BID PO 04/21/18 21:00 04/23/18 20:28 (Milk Of Magnesia Liq) 30 ml Q12H PRN PO 04/21/18 18:00 (Senokot) 17.2 mg Q12H PRN PO 04/21/18 18:00 (Dulcolax Supp) 10 mg DAILY PRN RECTAL 04/21/18 18:00 (Lactulose Liq) 30 ml DAILY PRN PO 04/21/18 18:00 ([facility] Nursing Information) Patient in critical care unit? Ass... [id number] .XX 04/21/18 23:00 (Chlorhexidine 2% Cloth) 3 pack DAILY@04 TOPICAL 04/22/18 04:00 04/26/18 04:01 04/23/18 20:28 (Chlorhexidine 2% Cloth) 3 pack UNSCH PRN TOPICAL 04/21/18 23:00 04/26/18 22:53 (Duoneb Neb) 1 ampule Q4HR NEB PRN NEB 04/23/18 00:45 04/24/18 09:32 (Reglan Liq) 5 mg TIDAC PO 04/23/18 12:00 04/23/18 18:16 (Metamucil Smooth Texture Sf/ Gf Pkt) 1 pkt BID PO 04/24/18 21:00 UNV (Estuardo Zamora MD R2) A/P Assessment and Plan 87 yo male with COPD, pancytopenia presenting with: (Estuardo Zamora MD R2) Attending Attestation Pt. seen and examined, discussed with Dr. Zamora. I agree with the findings and the plan as documented. (Julissa Alcala MD) Problem List: (1) Hypernatremia ICD Codes: E87.0 - Hyperosmolality and hypernatremia Plan: Likely was chronic and related to malnutrition. Electrolyte disturbances may also have explained altered mental status. Hyponatremia now resolved. Discontinue IV hypotonic fluids Trend BMP (2) Encephalopathy acute ICD Codes: G93.40 - Encephalopathy, unspecified Status: Acute Plan: Improving, but not resolved Possibly due to malnutrition, hypernatremia Diet regular with Ensure supplement Metoclopromide TIDAC to alleviate GI upset, encourage eating Manage hypernatremia as noted (3) Pancytopenia ICD Codes: D61.818 - Other pancytopenia Status: Chronic Plan: Stable Trend CBC Check B12, Folate - anemia is macrocytic (4) Hypothermia ICD Codes: T68.XXXA - Hypothermia, initial encounter Status: Resolved Plan: Resolved. Etiology unclear. Initially thought to be due to sepsis however no source identified and cultures negative. Monitor clinically (5) COPD (chronic obstructive pulmonary disease) ICD Codes: J44.9 - Chronic obstructive pulmonary disease Status: Chronic Plan: Stable, with some wheezing Albuterol neb PRN (6) Nutrition, metabolism, and development symptoms ICD Codes: R63.8 - Symptoms concerning nutrition, metabolism, and development Status: Acute Plan: Fluids: On hold for now Elecs: See above; monitor and replete as needed Nutrition: Diet regular with Ensure DVT: Lovenox Dispo: Will need PT on discharge. Anticipate likely D/C Thursday if continuing to improve. (Estuardo Zamora MD R2) Problem Qualifiers (1) Hypothermia: Qualified Codes: T68.XXXA - Hypothermia, initial encounter (2) COPD (chronic obstructive pulmonary disease): Qualified Codes: J42 - Unspecified chronic bronchitis Estuardo Zamora MD R2 Apr 24, 2018 13:45 Julissa Alcala MD Apr 24, 2018 14:32
[2018-04-24 15:02] LABS: FOLATE GREATER THAN 20.0 NG/ML (3.1-17.5)
[2018-04-24] MEDS: BETHANECHOL CHL 25 MG TAB PO SCH ×2 (16:58→21:11)
[2018-04-24] MEDS: FERROUS SULFATE 325 MG (65 MG ELEMENTAL IRON) TAB PO SCH (16:58)
[2018-04-24] MEDS: METOCLOPRAMIDE HCL 10 MG TAB PO SCH (16:58)
[2018-04-24] MEDS: RESP: ALBUTEROL 2.5 MG/IPRATROPIUM 0.5 MG NEB (SCH) NEB (19:46)
[2018-04-24] MEDS ORDERED: ENOXAPARIN SODIUM 40 MG/0.4 ML SYRINGE SQ SCH (21:00)
[2018-04-24] MEDS ORDERED: PSYLLIUM FIBER SF/GF 6 GM POWD PKT PO SCH (21:00)
[2018-04-24] MEDS: BUDESONIDE-FORMOTEROL 80/4.5 MCG INHALER INH SCH (21:10)
[2018-04-24] MEDS: CALCIUM CARBONATE 500 MG CHEWABLE TAB CHEW SCH (21:10)
[2018-04-24] MEDS: PSYLLIUM HUSK SF 3.4 GM in 5.8 GM PKT PO SCH (21:10)
[2018-04-24] MEDS: ENOXAPARIN SODIUM 60 MG/0.6 ML SYRINGE SQ SCH (21:10)
[2018-04-25] VITALS (8 sets, daily range): BP systolic 92–123; BP diastolic 53–64; PULSE 59–83; RESP 17–59; TEMP 97.4–98.3; O2SAT 91–100
[2018-04-25] MEDS: CHLORHEXIDINE GLUCONATE 2 % 1 PACK (2 CLOTHS)(taper/protocol) TOPICAL SCH (04:00)
[2018-04-25] MEDS: TAMSULOSIN HCL 0.4 MG CAP PO SCH (05:59)
[2018-04-25] MEDS: METOCLOPRAMIDE HCL 10 MG TAB PO SCH ×3 (06:00→17:07)
[2018-04-25] MEDS: RESP: ALBUTEROL 2.5 MG/IPRATROPIUM 0.5 MG NEB (SCH) NEB ×3 (07:55→20:15)
[2018-04-25] MEDS: CYANOCOBALAMIN 1,000 MCG TAB PO SCH (08:04)
[2018-04-25] MEDS: FERROUS SULFATE 325 MG (65 MG ELEMENTAL IRON) TAB PO SCH (08:04)
[2018-04-25] MEDS: PANTOPRAZOLE SOD 20 MG DELAYED RELEASE TAB PO SCH (08:04)
[2018-04-25] MEDS: FAMOTIDINE 20 MG TAB PO SCH (08:04)
[2018-04-25] MEDS: BETHANECHOL CHL 25 MG TAB PO SCH ×4 (08:04→22:44)
[2018-04-25] MEDS: CALCIUM CARBONATE 500 MG CHEWABLE TAB CHEW SCH ×2 (08:04→22:43)
[2018-04-25] MEDS: FOLIC ACID 1 MG TAB PO SCH (08:04)
[2018-04-25] MEDS: PSYLLIUM HUSK SF 3.4 GM in 5.8 GM PKT PO SCH ×2 (08:05→21:00)
[2018-04-25] MEDS: SODIUM CHLORIDE 0.9% FLUSH 10 ML FLUSH IV FLUSH SCH ×2 (08:05→22:43)
[2018-04-25] MEDS: DOCUSATE SODIUM 50 MG/SENNA 8.6 MG TAB PO SCH ×2 (08:05→22:44)
[2018-04-25] MEDS: BUDESONIDE-FORMOTEROL 80/4.5 MCG INHALER INH SCH ×2 (08:06→22:46)
[2018-04-25 08:24] LABS: AUTOMATED NEUTROPHIL # 0.9 TH/MM3 (1.8-7.7); BASOPHIL % 0.2 % (0.0-2.0); EOSINOPHIL # 0.1 TH/MM3 (0-0.4); EOSINOPHIL % 2.6 % (0.0-4.0); HEMATOCRIT 26.5 % (39.0-51.0); HEMOGLOBIN 8.9 GM/DL (13.0-17.0); LYMPH % 42.3 % (9.0-44.0); LYMPHOCYTE # 0.9 TH/MM3 (1.0-4.8); MEAN CELL VOLUME 109.7 FL (80.0-100.0); MEAN CORPUSCULAR HGB CONC 33.7 % (32.0-36.0); MEAN PLATELET VOLUME 8.4 FL (7.0-11.0); MONO % 13.1 % (0.0-8.0); MONOCYTE # 0.3 TH/MM3 (0-0.9); NEUT % 41.8 % (16.0-70.0); PLATELET COUNT 40 TH/MM3 (150-450); RED BLOOD COUNT 2.41 MIL/MM3 (4.50-5.90); RED CELL DISTRIBUTION WIDTH 15.4 % (11.6-17.2)
[2018-04-25 08:48] LABS: CALCIUM 8.4 MG/DL (8.5-10.1); CREATININE 0.47 MG/DL (0.60-1.30)
[2018-04-25] MEDS ORDERED: NON-FORMULARY DRUG (Omeprazole 20 MG) PO SCH (09:00)
[2018-04-25] MEDS ORDERED: NON-FORMULARY DRUG (Ferrous Sulfate DR 324 MG) PO SCH (09:00)
[2018-04-25 09:17] LABS: BANDS 1 % (0-6); LYMPHOCYTES 33 % (9-44); MONOCYTES 5 % (0-8); NEUTROPHIL # MANUAL DIFF 1.2 TH/MM3 (1.8-7.7); POLYS (SEG NEUTROPHILS) 58 % (16-70)
[2018-04-25 09:18] LABS: ACANTHOCYTES OCC (NORMAL); OVALOCYTES 2+ (NORMAL)
--- NOTE | 2018-04-25 10:24 | HHI.FPPN ---
Subjective Remarks Daughter at bedside. Vitals stable. No intermittent hallucinations, still confused - thinks he is in [place]. He thinks the month is June. Ate all of breakfast this morning per daughter. Endorses improvement in appetite. A 50% of dinner yesterday. Daughter states the patient seems weak. Condom catheter in place. Urine is clear. Objective Vitals Vital Signs Date Time Temp Pulse Resp B/P (MAP) Pulse Ox O2 Delivery O2 Flow Rate FiO2 04/25/18 08:00 97.4 70 17 92/53 (66) 100 04/25/18 07:58 91 Nasal Cannula 21 04/25/18 04:45 98.3 74 20 123/63 (83) 97 04/25/18 00:20 98.0 80 20 120/59 (79) 97 04/24/18 20:30 97.8 89 18 135/60 (85) 96 04/24/18 16:00 98.8 86 18 140/85 (103) 92 04/24/18 12:00 98.0 88 22 157/78 (104) 97 04/24/18 12:00 88 I/O 04/24/18 04/24/18 04/24/18 04/25/18 04/25/18 04/25/18 07:00 15:00 23:00 07:00 15:00 23:00 Intake Total 120 ml 650 ml 450 ml Output Total 1500 ml 1000 ml Balance 120 ml -850 ml -550 ml Intake Oral 120 ml 650 ml 450 ml Output Urine Total 1500 ml 1000 ml # Voids 2 2 # Bowel Movements 1 0 0 Result Diagram: 04/25/18 0800 04/25/18 0800 Objective Remarks Gen: Thin elderly white male sitting up in bed, comfortable, NAD Head: NC/AT CV: NRRR, normal S1/S2, no murmur Lungs: Normal rate and effort. Diffuse mild/faint end expiratory wheezing most prominent at bases MSK: No edema Neuro: Awake, alert. Oriented to person. Cranial nerves and motor function grossly intact. A/P Assessment and Plan 87 yo male with COPD, pancytopenia presenting with: Discharge Planning PT recommends home health versus rehab on discharge. Family requests rehab facility, case management consulted. Anticipate likely D/C Thursday. 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 Metoclopromide TIDAC to alleviate GI upset, encourage eating May benefit from antidepressant DAILY PT Out of bed to chair BID (2) Pancytopenia ICD Codes: D61.818 - Other pancytopenia Status: Chronic Plan: Stable Trend CBC Check B12, Folate elevated. Anemia is macrocytic (3) COPD (chronic obstructive pulmonary disease) ICD Codes: J44.9 - Chronic obstructive pulmonary disease Status: Chronic Plan: Stable, with some wheezing Albuterol neb PRN (4) Hypernatremia ICD Codes: E87.0 - Hyperosmolality and hypernatremia Status: Resolved (5) Hypothermia ICD Codes: T68.XXXA - Hypothermia, initial encounter Status: Resolved (6) Nutrition, metabolism, and development symptoms ICD Codes: R63.8 - Symptoms concerning nutrition, metabolism, and development Status: Acute Plan: Fluids: PO Elecs: See above; monitor and replete as needed Nutrition: Diet regular with Ensure DVT: Lovenox, SCDs Problem Qualifiers (1) COPD (chronic obstructive pulmonary disease): Qualified Codes: J42 - Unspecified chronic bronchitis (2) Hypothermia: Qualified Codes: T68.XXXA - Hypothermia, initial encounter Shruthi Carvajal MD R1 Apr 25, 2018 10:24
[2018-04-25] MEDS: ENOXAPARIN SODIUM 40 MG/0.4 ML SYRINGE SQ SCH (22:45)
[2018-04-26] VITALS (9 sets, daily range): BP systolic 95–145; BP diastolic 46–93; PULSE 60–90; RESP 17–19; TEMP 97.4–98.8; O2SAT 92–100
[2018-04-26] MEDS: CHLORHEXIDINE GLUCONATE 2 % 1 PACK (2 CLOTHS)(taper/protocol) TOPICAL SCH (04:00)
[2018-04-26] MEDS: TAMSULOSIN HCL 0.4 MG CAP PO SCH (05:30)
[2018-04-26] MEDS: FERROUS SULFATE 325 MG (65 MG ELEMENTAL IRON) TAB PO SCH (08:10)
[2018-04-26] MEDS: FAMOTIDINE 20 MG TAB PO SCH (08:10)
[2018-04-26] MEDS: FOLIC ACID 1 MG TAB PO SCH (08:10)
[2018-04-26] MEDS: DOCUSATE SODIUM 50 MG/SENNA 8.6 MG TAB PO SCH (08:11)
[2018-04-26] MEDS: CALCIUM CARBONATE 500 MG CHEWABLE TAB CHEW SCH ×2 (08:11→20:44)
[2018-04-26] MEDS: CYANOCOBALAMIN 1,000 MCG TAB PO SCH (08:11)
[2018-04-26] MEDS: PANTOPRAZOLE SOD 20 MG DELAYED RELEASE TAB PO SCH (08:11)
[2018-04-26] MEDS: BETHANECHOL CHL 25 MG TAB PO SCH ×4 (08:11→20:44)
[2018-04-26] MEDS: PSYLLIUM HUSK SF 3.4 GM in 5.8 GM PKT PO SCH ×3 (08:12→17:20)
[2018-04-26] MEDS: SODIUM CHLORIDE 0.9% FLUSH 10 ML FLUSH IV FLUSH SCH ×2 (08:12→20:45)
[2018-04-26] MEDS: METOCLOPRAMIDE HCL 10 MG TAB PO SCH ×3 (08:15→17:20)
[2018-04-26] MEDS: BUDESONIDE-FORMOTEROL 80/4.5 MCG INHALER INH SCH ×2 (08:18→20:53)
[2018-04-26] MEDS: RESP: ALBUTEROL 2.5 MG/IPRATROPIUM 0.5 MG NEB (SCH) NEB ×3 (08:56→19:42)
--- NOTE | 2018-04-26 09:40 | HHI.FPPN ---
Subjective Remarks Vitals stable overnight. Patient looking well this morning. Alert and oriented x3, is aware of why he is hospitalized and was able to convey on exam. States his appetite is improved. Per nursing, has been requesting food and eating frequently, endorses hunger. Continues to leak stool. (Shruthi Carvajal MD R1) Objective Vitals Vital Signs Date Time Temp Pulse Resp B/P (MAP) Pulse Ox O2 Delivery O2 Flow Rate FiO2 04/26/18 09:00 96 Nasal Cannula 2.00 04/26/18 06:10 98.3 66 17 120/69 (86) 96 04/26/18 00:45 98.8 69 19 115/67 (83) 97 04/25/18 21:45 98.0 80 17 118/64 (82) 98 04/25/18 20:17 96 Nasal Cannula 2.00 04/25/18 16:00 97.7 83 19 100/56 (71) 95 04/25/18 12:00 97.7 59 59 120/54 (76) 96 I/O 04/25/18 04/25/18 04/25/18 04/26/18 04/26/18 04/26/18 07:00 15:00 23:00 07:00 15:00 23:00 Intake Total 450 ml 550 ml Output Total 1000 ml 1600 ml 1000 ml Balance -550 ml -1050 ml -1000 ml Intake Oral 450 ml 550 ml Output Urine Total 1000 ml 1600 ml 1000 ml # Voids 2 2 # Bowel Movements 0 0 1 (Shruthi Carvajal MD R1) Result Diagram: 04/25/18 0800 04/25/18 0800 Objective Remarks Gen: Thin elderly white male sitting up in bed, comfortable, NAD. Healthy complexion. Head: NC/AT CV: NRRR, normal S1/S2, no murmur Lungs: Normal rate and effort. Diffuse faint end expiratory wheezing most prominent at bases MSK: No edema Neuro: Awake, alert. Oriented to person. Cranial nerves and motor function grossly intact. (Shruthi Carvajal MD R1) A/P Assessment and Plan 87 yo male with COPD, pancytopenia presenting with: Discharge Planning Clear for DC to rehab. (Shruthi Carvajal MD R1) Attending Attestation Long conversation with Daughter Isatu at [phone] (alternate [phone]) who is in agreement with rehab post-hospital. She states her Mom is fine in the [facility]. Now understands that Mr. Ferreira has gained 4 kgs since admission. 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 He is in agreement with Rehab and will be assessed by Dr. Waldron today; if not [facility], then perhaps [facility]. [place] requests calls or texts to the [phone] number if pt. is being transferred, even if other family members are present with the patient. Patient seen and examined. Case reviewed and discussed with the resident team. Agree with plan of care as discussed with me and documented in the resident note. (Julissa Alcala MD) Problem List: (1) Physical deconditioning ICD Codes: R53.81 - Other malaise Plan: Improving, but not resolved Possibly due to malnutrition, pseudodementia Improved appetite: Continue Mechanical soft diet with Ensure supplement. Metoclopromide TIDAC to alleviate GI upset, encourage eating May benefit from antidepressant DAILY PT Out of bed to chair BID Metamusil for runny stool. (2) Pancytopenia ICD Codes: D61.818 - Other pancytopenia Status: Chronic Plan: Stable Trend CBC Check B12, Folate elevated. Anemia is macrocytic (3) COPD (chronic obstructive pulmonary disease) ICD Codes: J44.9 - Chronic obstructive pulmonary disease Status: Chronic Plan: Stable, with some wheezing Albuterol neb PRN (4) Hypernatremia ICD Codes: E87.0 - Hyperosmolality and hypernatremia Status: Resolved (5) Hypothermia ICD Codes: T68.XXXA - Hypothermia, initial encounter Status: Resolved (6) Nutrition, metabolism, and development symptoms ICD Codes: R63.8 - Symptoms concerning nutrition, metabolism, and development Status: Acute Plan: Fluids: PO Elecs: See above; monitor and replete as needed Nutrition: Diet regular with Ensure DVT: Lovenox, SCDs (Shruthi Carvajal MD R1) Problem Qualifiers (1) COPD (chronic obstructive pulmonary disease): Qualified Codes: J42 - Unspecified chronic bronchitis (2) Hypothermia: Qualified Codes: T68.XXXA - Hypothermia, initial encounter Shruthi Carvajal MD R1 Apr 26, 2018 09:40 Julissa Alcala MD Apr 26, 2018 10:27
[2018-04-26 09:51] LABS: HEMATOCRIT 27.3 % (39.0-51.0); HEMOGLOBIN 9.2 GM/DL (13.0-17.0); MEAN CELL VOLUME 110.2 FL (80.0-100.0); MEAN CORPUSCULAR HEMOGLOBIN 37.2 PG (27.0-34.0); MEAN CORPUSCULAR HGB CONC 33.8 % (32.0-36.0); MEAN PLATELET VOLUME 8.2 FL (7.0-11.0); PLATELET COUNT 41 TH/MM3 (150-450); RED BLOOD COUNT 2.47 MIL/MM3 (4.50-5.90); RED CELL DISTRIBUTION WIDTH 15.6 % (11.6-17.2); WHITE BLOOD COUNT 2.4 TH/MM3 (4.0-11.0)
[2018-04-26] MEDS ORDERED: METO10TA PO (10:53)
[2018-04-26] MEDS ORDERED: PSYL1POW7 PO (10:53)
--- NOTE | 2018-04-26 10:55 | HHI.DCPOC ---
Discharge Care Plan Diagnosis: (1) Hypernatremia (2) Hypothermia (3) Encephalopathy acute (4) Physical deconditioning Goals to Promote Your Health * To prevent worsening of your condition and complications * To maintain your health at the optimal level Directions to Meet Your Goals Take your medications as prescribed Follow your dietary instruction Follow activity as directed Keep your appointments as scheduled Take your immunizations and boosters as scheduled If your symptoms worsen call your PCP, if no PCP go to Urgent Care Center or Emergency Room Smoking is Dangerous to Your Health. Avoid second hand smoke Call the 24-hour hour crisis hotline for domestic abuse at Shruthi Carvajal MD R1 Apr 26, 2018 10:55
[2018-04-26] MEDS: SODIUM CHLORID 0.9% 500 ML INJ 500 ML IV SCH ×2 (17:20→22:24)
[2018-04-26] MEDS: ENOXAPARIN SODIUM 40 MG/0.4 ML SYRINGE SQ SCH (20:45)
[2018-04-27] VITALS (8 sets, daily range): BP systolic 94–146; BP diastolic 55–63; PULSE 51–101; RESP 14–20; TEMP 97.5–98.2; O2SAT 92–98
[2018-04-27] MEDS: RESP: ALBUTEROL 2.5 MG/IPRATROPIUM 0.5 MG NEB (PRN) NEB (03:48)
[2018-04-27] MEDS: TAMSULOSIN HCL 0.4 MG CAP PO SCH (05:24)
[2018-04-27] MEDS: RESP: ALBUTEROL 2.5 MG/IPRATROPIUM 0.5 MG NEB (SCH) NEB ×3 (08:41→14:05)
[2018-04-27] MEDS: CYANOCOBALAMIN 1,000 MCG TAB PO SCH (09:00)
[2018-04-27] MEDS: PSYLLIUM HUSK SF 3.4 GM in 5.8 GM PKT PO SCH ×2 (09:00→11:45)
[2018-04-27] MEDS: BETHANECHOL CHL 25 MG TAB PO SCH ×2 (09:15→11:44)
[2018-04-27] MEDS: PANTOPRAZOLE SOD 20 MG DELAYED RELEASE TAB PO SCH (09:15)
[2018-04-27] MEDS: FAMOTIDINE 20 MG TAB PO SCH (09:15)
[2018-04-27] MEDS: CALCIUM CARBONATE 500 MG CHEWABLE TAB CHEW SCH (09:15)
[2018-04-27] MEDS: METOCLOPRAMIDE HCL 10 MG TAB PO SCH ×2 (09:16→11:44)
[2018-04-27] MEDS: FOLIC ACID 1 MG TAB PO SCH (09:16)
[2018-04-27] MEDS: FERROUS SULFATE 325 MG (65 MG ELEMENTAL IRON) TAB PO SCH (09:16)
[2018-04-27] MEDS: SODIUM CHLORIDE 0.9% FLUSH 10 ML FLUSH IV FLUSH SCH (09:17)
[2018-04-27] MEDS: BUDESONIDE-FORMOTEROL 80/4.5 MCG INHALER INH SCH (09:17)
--- NOTE | 2018-04-27 10:46 | PQ ---
Physician Query Response Document PATIENT: LUCRECIA NEGRON : 1930 ADMIT DATE: 04/21/2018 5:20 PM DISCH DATE: RESPONDING PROVIDER #: Adi QUERY TEXT: CDS Clarification Unspecified severe protein-calorie malnutrition in a patient w BMI 16.7 hypothermia,metabolic encepha lopathy and severe hypernatremia treated with IV hydration, vitamin and electrolyte replacement, diet and speech consult, ensure Other explanation of clinical findings. Unable to determine (no explanation for clinical findings). The medical record reflects the following clinical findings, treatment, and risk factors. * Clinical Indicators BMI 16.7, AMS, Abnormal electrolytes, hypothermia * Risk Factors age and deconditioning * Treatment IV hydration, vitamin and electrolyte replacement, diet and speech consult, dietary lyles pplement The patient's Clinical Indicators include: Please clarify and document your clinical opinion in the progress notes and discharge summary includi ng the definitive and/or presumptive diagnosis (suspected or probable), related to the above clinical findings. Please include clinical findings supporting your diagnosis. Thank you, Oneida Doss CDS: Oneida Doss Patient Unit: [id number] Room: 153 Contact Number: CDS/RN ext. [phone] Query created by: Oneida Doss on 04/26/2018 4:07 PM RESPONSE TEXT: Patient with severe protein calorie malnutrition secondary to multiple changes inhis life including a hospitalization at [facility] followed by discharge home, and subsequent admission to [facility]. Was not eating adequately due to 's health condition which he felt prevented him from going to the dining room a nd thereby leaving her alone, as she has dementia. He was also very worried about finances. Had been having significant difficulty eating which now has been determined to be due to gastroparesis and rem edied with Reglan 5 mg ac. Anticipate discharge to SNF for rehab today for PT deconditioning and spee ch therapy. Electronically signed by: Julissa Alcala MD 04/27/2018 10:42 AM
== END 2018-04-27 16:26 | DRG 640 ==
LOC: NEPC 14:03 → NEDA 17:20 → HIME 21:35 → N05A 04-24 14:57
PROVIDERS: ADMIT Family Medicine; ATTEND Family Medicine
DX: E87.0 Hyperosmolality and hypernatremia (principal); E43 Unspecified severe protein-calorie malnutrition; G93.41 Metabolic encephalopathy; D61.818 Other pancytopenia; K31.84 Gastroparesis; J44.9 Chronic obstructive pulmonary disease, unspecified; K22.70 Barrett's esophagus without dysplasia; R68.0 Hypothermia, not associated with low environmental temperature; Z99.81 Dependence on supplemental oxygen; D53.9 Nutritional anemia, unspecified; I10 Essential (primary) hypertension; E78.00 Pure hypercholesterolemia, unspecified; Z95.0 Presence of cardiac pacemaker
CPT/HCPCS: 36600; 51702; 70450; 71045; 80048; 80053; 81001; 82140; 82550; 82607; 82746; 82805; 83605; 83735; 85007; 85025; 85027; 87040; 87086; 87641; 93005; 94640; 94664; 96361; 96374; 96375; J1650; J2543; J2930; J3370; J3480; J7030; J7040; J7050

== ENCOUNTER 2018-05-16 16:32 | Inpatient (IN) ==
[2018-05-16 17:53] LABS: Baso % (Auto) 0.6 % (0.0-2.0); Eos % (Auto) 0.1 % (0.0-4.0); Hematocrit 28.2 % (39.0-51.0); Hemoglobin 9.3 gm/dL (13.0-17.0); Lymph # (Auto) 0.4 th/mm3 (1.0-4.8); Lymph % (Auto) 12.8 % (9.0-44.0); Mean Corpuscular HGB Conc 32.9 % (32.0-36.0); Mean Corpuscular Hemoglobin 36.8 pg (27.0-34.0); Mean Corpuscular Volume 111.8 fL (80.0-100.0); Mean Platelet Volume 9.3 fL (7.0-11.0); Mono # (Auto) 0.3 th/mm3 (0.0-0.9); Mono % (Auto) 10.9 % (0.0-8.0); Neut # (Auto) 2.3 th/mm3 (1.8-7.7); Neut % (Auto) 75.6 % (16.0-70.0); Platelet Count 81 th/mm3 (150-450); Red Blood Count 2.52 mil/mm3 (4.50-5.90); Red Cell Distribution Width 15.5 % (11.6-17.2)
--- NOTE | 2018-05-16 17:54 | XR ---
EXAM DATE: 05/16/2018 5:48 PM EDT AGE/SEX: 87 years / Male INDICATIONS: Short of breath. CLINICAL DATA: This is the patient's initial encounter. Patient reports that signs and symptoms have been present for 1 day and indicates a pain score of 0/10. MEDICAL/SURGICAL HISTORY: . Chronic obstructive pulmonary disease Pacemaker. COMPARISON: [facility] [place]ST SINGLE AP, 04/21/2018. . FINDINGS: There is bilateral mostly basilar airspace disease with small pleural effusions. Parenchymal scarring and pleural thickening noted in the upper right lung. There is underlying emphysema. Pacer leads ove rlie right atrium and right ventricle. CONCLUSION: Basilar airspace disease and small pleural effusions are new findings since April 21. Stable apical sc arring and pleural thickening. Electronically signed by: Russel Wyatt MD 05/16/2018 5:53 PM EDT
[2018-05-16 18:05] LABS: Anion Gap 5 meq/L (5-15); Aspartate Aminotransferase 30 U/L (15-37); Blood Urea Nitrogen 25 mg/dL (7-18); Calcium 8.9 mg/dL (8.5-10.1); Carbon Dioxide 41.3 meq/L (21.0-32.0); Chloride 92 meq/L (98-107); Glomerular Filtration Rate Greater Than 89 mL/min (>89); Glucose,Random 125 mg/dL (74-106); Potassium 4.7 meq/L (3.5-5.1); Sodium 138 meq/L (136-145)
[2018-05-16 18:06] LABS: Alanine Aminotransferase 29 U/L (12-78)
[2018-05-16] MEDS ORDERED: Vancomycin Inj 1 GM/200 ML PIGGYBACK IV.SIG ONE (18:06)
[2018-05-16 18:10] LABS: Alkaline Phosphatase 63 U/L (45-117); Total Protein 6.6 g/dL (6.4-8.2)
[2018-05-16] MEDS ORDERED: Vancomycin Inj 1,000 MG in Sodium Chlor 0.9% Inj 250 ML IV.SIG ONE (18:15)
[2018-05-16 18:37] LABS: Creatine Kinase 88 U/L (39-308)
[2018-05-16 18:39] LABS: Troponin I 2.35 ng/mL (0.02-0.05)
[2018-05-16] MEDS: Azithromycin Inj 500 MG in Sodium Chlor 0.9% Inj 250 ML IV.SIG SCH (18:41)
[2018-05-16] MEDS ORDERED: Heparin Drip 25,000 UNIT/250 ML BAG IV.CONT PRN (18:57)
--- NOTE | 2018-05-16 19:14 | ED ---
HPI General Chief complaint: Respiratory Symptoms Stated complaint: EVAC/SOB Time Seen by Provider: 05/16/18 16:55 Source: patient and EMS Mode of arrival: EMS Limitations: no limitations History of Present Illness HPI narrative: Patient is an 87-year-old male who comes in due to respiratory issues. He has history of CML and has been treated for pneumonia on Levaquin for the past 5 days at the [place] [facility]. He says he has had symptoms for a few months. He complains of pain all over and difficulty breathing. He was originally sent for possible transfusion, due to a hemoglobin of 7.8. Patient provides little other history. Related Data Home Medications Medication Instructions Recorded Confirmed albuterol sulfate [Ventolin HFA] 2 puff INHALATION QID PRN 05/13/18 05/16/18 bethanechol chloride 25 mg PO QID 05/13/18 05/16/18 budesonide-formoterol [Symbicort] 2 puff INHALATION Q12H 05/13/18 05/13/18 calcium carbonate [Tums] 200 mg PO Q12HR 05/13/18 05/16/18 carvedilol [Coreg] 3.125 mg PO BID 05/13/18 05/16/18 cyanocobalamin (vitamin B-12) 2,000 mcg PO DAILY 05/13/18 05/16/18 famotidine [Pepcid] 20 mg PO DAILY 05/13/18 05/13/18 ferrous sulfate 324 mg PO DAILY 05/13/18 05/16/18 folic acid 1 mg PO DAILY 05/13/18 05/16/18 ipratropium-albuterol 3 ml INHALATION Q4HR 05/13/18 05/16/18 omeprazole 20 mg PO BIDAC 05/13/18 05/16/18 polyethylene glycol 3350 17 gm PO DAILY 05/13/18 05/13/18 tamsulosin [Flomax] 0.8 mg PO DAILY 05/13/18 05/16/18 Lactobacillus rhamnosus GG 1 cap PO DAILY 05/16/18 05/16/18 [Culturelle] ascorbic acid (vitamin C) [Vitamin 500 mg PO BID 05/16/18 05/16/18 C] bisacodyl [Dulcolax (bisacodyl)] 10 mg [place] DAILY PRN 05/16/18 05/16/18 budesonide-formoterol [Symbicort] 2 puff INHALATION Q12H 05/16/18 05/16/18 dronabinol [Marinol] 2.5 mg PO DAILY 05/16/18 05/16/18 furosemide [Lasix] 40 mg PO DAILY 05/16/18 05/16/18 guaifenesin 10 ml PO Q6HR 05/16/18 05/16/18 ipratropium-albuterol 3 ml INHALATION Q4HR PRN 05/16/18 05/16/18 magnesium hydroxide [Milk of 30 ml PO DAILY PRN 05/16/18 05/16/18 Magnesia] memantine [Namenda] 10 mg PO HS 05/16/18 05/16/18 multivitamin 1 tab PO DAILY 05/16/18 05/16/18 potassium chloride 20 meq PO DAILY 05/16/18 05/16/18 psyllium husk (with sugar) 1 packet PO TID PRN 05/16/18 05/16/18 [Metamucil (with sugar)] simethicone 80 mg PO TIDPC 05/16/18 05/16/18 trazodone 25 mg PO HS 05/16/18 05/16/18 zinc sulfate 220 mg PO DAILY 05/16/18 05/16/18 Allergies Allergy/AdvReac Type Severity Reaction Status Date / Time No Known Allergies Allergy Unverified 05/13/18 14:48 Review of Systems ROS Unobtainable other (limited due to patient condition) [facility] Medical History Medical History Anemia (Acute) Anorexia (Acute) BPH (benign prostatic hyperplasia) (Acute) Constipation (Acute) GERD (gastroesophageal reflux disease) (Acute) Gastroparesis (Acute) Hypocalcemia (Acute) Hyponatremia (Acute) Pancytopenia (Acute) Pneumonia (Acute) Urinary retention (Acute) Barretts esophagus (Acute) COPD (chronic obstructive pulmonary disease) (Acute) Heart block (Acute) Hypertension (Acute) Surgical History Surgical History History of inguinal hernia repair (Acute) History of permanent cardiac pacemaker placement (Acute) History of transurethral resection of prostate (Acute) Social History Social History Substance History: No History of Abuse Smoking Status: Unknown if ever smoked How Often Do You Have a Drink Containing Alcohol: Never Recent Travel in [facility] within the Last 8 Weeks: No Recent Out of Country Travel within the Last 8 Weeks: No Immunization History Tetanus Immunization: Unsure Hx Influenza Vaccine This Season: No Exam Narrative Exam Narrative: GENERAL: Awake and alert, in mild respiratory distress. SKIN: Focused skin assessment warm/dry. HEAD: Atraumatic. Normocephalic. EYES: Pupils equal and round. No scleral icterus. ENT: Mucous membranes pink and moist. NECK: Trachea midline. No JVD. CARDIOVASCULAR: Regular rate and rhythm. No murmur appreciated. RESPIRATORY: Tachypnea, accessory muscle use. GASTROINTESTINAL: Abdomen soft, non-tender, nondistended. MUSCULOSKELETAL: No obvious deformities. No clubbing. No cyanosis. No edema. NEUROLOGICAL: Awake and alert. No obvious cranial nerve deficits. Motor grossly within normal limits. Normal speech. PSYCHIATRIC: Appropriate mood and affect; insight and judgment normal. Course Hospital Course: IV established, labs sent. Patient connected to admin dir. Placed on nasal cannula. Chest x-ray ordered. Reevaluation(s) Reevaluation #1: Patient is improving with oxygen. Started on antibiotics based on chest x-ray results. Time: 18:15 Reevaluation #2: Troponin is spoke with Dr. givens who recommended starting heparin. He also spoke with oncology who said aspirin is okay. Patient will be admitted for further management. Time: 19:20 Initial Documented Vital Signs Temperature 98.4 F 05/16/18 17:00 Pulse Rate 100 H 05/16/18 17:00 Respiratory Rate 20 05/16/18 17:00 Blood Pressure 111/80 05/16/18 17:00 Pulse Oximetry 96 05/16/18 17:00 Last Documented Vital Signs Temperature 98.4 F 05/16/18 17:43 Pulse Rate 100 H 05/16/18 18:23 Respiratory Rate 21 05/16/18 18:23 Blood Pressure 118/92 H 05/16/18 18:23 Pulse Oximetry 100 05/16/18 18:23 Medical Decision Making [facility] Narrative Medical decision making narrative: Patient is an 87-year-old male who comes in complaining of difficulty breathing. Exam shows mild respiratory distress. IV established, labs sent. Patient connected to admin dir. Chest x-ray concerning for bibasilar airspace disease. Given antibiotics. Troponin is elevated. Started on heparin and given aspirin. Dr. banegas came to see the patient. He will be admitted for further management. Differential Diagnosis Differential Diagnosis: Pneumonia his CHF Medical Records Medical records reviewed: Yes I reviewed the patient's medical records. Lab Data Lab results reviewed: Yes I reviewed the patient's lab results. Result diagrams: 05/16/18 17:10 05/16/18 17:10 Lab Results 05/16/18 05/16/18 05/16/18 Range/Units 17:10 17:10 17:10 WBC 3.0 L (4.0-11.0) th/mm3 RBC 2.52 L (4.50-5.90) mil/mm3 Hgb 9.3 L (13.0-17.0) gm/dL Hct 28.2 L (39.0-51.0) % MCV 111.8 H (80.0-100.0) fL MCH 36.8 H (27.0-34.0) pg MCHC 32.9 (32.0-36.0) % RDW 15.5 (11.6-17.2) % Plt Count 81 L D (150-450) th/mm3 MPV 9.3 (7.0-11.0) fL Prelim Diff (Auto) Slide review pending Neut % (Auto) 75.6 H (16.0-70.0) % Lymph % (Auto) 12.8 (9.0-44.0) % [place] % (Auto) 10.9 H (0.0-8.0) % Eos % (Auto) 0.1 (0.0-4.0) % Baso % (Auto) 0.6 (0.0-2.0) % Neut # (Auto) 2.3 (1.8-7.7) th/mm3 Lymph # (Auto) 0.4 L (1.0-4.8) th/mm3 [place] # (Auto) 0.3 (0.0-0.9) th/mm3 Eos # (Auto) 0.0 (0.0-0.4) th/mm3 Baso # (Auto) 0.0 (0.0-0.2) th/mm3 WBC Differential . Diff Scan Auto diff confirmed Differential Comment . Sodium 138 (136-145) meq/L Potassium 4.7 (3.5-5.1) meq/L Chloride 92 L (98-107) meq/L Carbon Dioxide 41.3 H (21.0-32.0) meq/L Anion Gap 5 (5-15) meq/L BUN 25 H (7-18) mg/dL Creatinine 0.81 (0.60-1.30) mg/dL Estimated GFR Greater than 89 (>89) mL/min Random Glucose 125 H (74-106) mg/dL Lactic Acid 0.8 (0.4-2.0) mmol/L Calcium 8.9 (8.5-10.1) mg/dL Total Bilirubin 0.5 (0.2-1.0) mg/dL AST 30 (15-37) U/L ALT 29 (12-78) U/L Alkaline Phosphatase 63 (45-117) U/L Total Creatine Kinase 88 (39-308) U/L Troponin I 2.35 H* (0.02-0.05) ng/mL B-Natriuretic Peptide (0-100) pg/mL Total Protein 6.6 (6.4-8.2) g/dL Albumin 3.0 L (3.4-5.0) g/dL /06/26 Range/Units 17:10 WBC (4.0-11.0) th/mm3 RBC (4.50-5.90) mil/mm3 Hgb (13.0-17.0) gm/dL Hct (39.0-51.0) % MCV (80.0-100.0) fL MCH (27.0-34.0) pg MCHC (32.0-36.0) % RDW (11.6-17.2) % Plt Count (150-450) th/mm3 MPV (7.0-11.0) fL Prelim Diff (Auto) Neut % (Auto) (16.0-70.0) % Lymph % (Auto) (9.0-44.0) % [place] % (Auto) (0.0-8.0) % Eos % (Auto) (0.0-4.0) % Baso % (Auto) (0.0-2.0) % Neut # (Auto) (1.8-7.7) th/mm3 Lymph # (Auto) (1.0-4.8) th/mm3 [place] # (Auto) (0.0-0.9) th/mm3 Eos # (Auto) (0.0-0.4) th/mm3 Baso # (Auto) (0.0-0.2) th/mm3 WBC Differential Diff Scan Differential Comment Sodium (136-145) meq/L Potassium (3.5-5.1) meq/L Chloride (98-107) meq/L Carbon Dioxide (21.0-32.0) meq/L Anion Gap (5-15) meq/L BUN (7-18) mg/dL Creatinine (0.60-1.30) mg/dL Estimated GFR (>89) mL/min Random Glucose (74-106) mg/dL Lactic Acid (0.4-2.0) mmol/L Calcium (8.5-10.1) mg/dL Total Bilirubin (0.2-1.0) mg/dL AST (15-37) U/L ALT (12-78) U/L Alkaline Phosphatase (45-117) U/L Total Creatine Kinase (39-308) U/L Troponin I (0.02-0.05) ng/mL B-Natriuretic Peptide 2410 H (0-100) pg/mL Total Protein (6.4-8.2) g/dL Albumin (3.4-5.0) g/dL Imaging Data Radiologist's impression: ITS Impressions Chest X-Ray 05/16/18 16:57 CONCLUSION: Basilar airspace disease and small pleural effusions are new findings since April 21. Stable apical scarring and pleural thickening. ECG Data EKG Prior to Arrival: No Attestation: I personally reviewed and interpreted this ECG as follows: Interpretation: ECG shows paced rhythm Discharge Plan Discharge Disposition Patient Disposition: 30 Still Patient Discharge Details Discharge Problem: Non-ST elevation (NSTEMI) myocardial infarction Physicians Team ED Provider: Maddie Mcgovern Primary Care Provider: UNKNOWN, Attending Provider: Marah Cuevas Discharge Interventions Interventions: Vital Signs Last Done: 05/16/18 18:23 Status ED Status: Admitted Patient
--- NOTE | 2018-05-16 21:30 | P.HP ---
History of Present Illness Service: [facility] Primary Care Physician: UNKNOWN Chief Complaint: Respiratory distress History of Present Illness: 87-year-old male with a past medical history significant for COPD, heart block status post pacemaker, dementia, Valles's esophagus and hypertension presents to the emergency department from his assisted living facility for the evaluation of respiratory distress. The patient was evaluated in his alf and was found to be tachypneic and breathing irregularly. Evaluation in the emergency department revealed a troponin of 2.35. The patient is unable to answer my questions but will open his eyes to sternal rub. Inpatient Certification: I certify that the inpatient services were ordered in accordance with Medicare regulations governing the order. This includes certification that hospital inpatient services are reasonable and necessary and in the case of services not specified as inpatient-only under 42 CFR 419.22(n), that they are appropriately provided as inpatient services in accordance to with the 2-midnight benchmark under 43 CFR 412.3(e) Estimated Total Length of Stay (Days): 3 Plans for Post Hospital Care: Not yet determined Review of Systems Unable to obtain secondary to patient's clinical condition PMFSH - History History Provided By: Medical Record - Medical History Medical History: Medical History (Last Reviewed 05/16/18 @ 19:44 by Maddie Mcgovern MD) Anemia Anorexia BPH (benign prostatic hyperplasia) Constipation GERD (gastroesophageal reflux disease) Gastroparesis Hypocalcemia Hyponatremia Pancytopenia Pneumonia Urinary retention Barretts esophagus COPD (chronic obstructive pulmonary disease) Heart block Hypertension - Surgical History Surgical History: Surgical History (Last Reviewed 05/16/18 @ 19:44 by Maddie Mcgovern MD) History of inguinal hernia repair History of permanent cardiac pacemaker placement History of transurethral resection of prostate - Tobacco History Smoking Status: Unknown if ever smoked - Alcohol History How Often Do You Have a Drink Containing Alcohol: Never - Substance Use History Substance History: No History of Abuse - Travel History Recent Travel in the [place] Within the Last 8 Weeks: No Recent Travel Out of the Country Within the Last 8 Weeks: No - Immunization History Tetanus Immunization: Unsure Hx Influenza Vaccine This Season: No Medications and Allergies Active Medications: Active Medications Azithromycin 500 mg/ Sodium (Chloride) 250 mls @ 250 mls/hr IV.SIG Q24H MARIANNE Last Infusion: 05/16/18 20:19 Dose: Infused Heparin Sodium/Dextrose (Heparin/D5w 25,000 U/250 Ml) 25,000 unit in 250 mls @ 0 mls/hr IV.CONT TITRATE PRN; Protocol PRN Reason: Per Protocol Last Admin: 05/16/18 20:51 Dose: 700 units/hr, 7 mls/hr Ondansetron HCl (Zofran Inj) 4 mg IV.PUSH Q6H PRN PRN Reason: NAUSEA OR VOMITING Sodium Chloride (Ns Inj) 2 ml IV.FLUSH BID MARIANNE Sodium Chloride (Ns Inj) 2 ml IV.FLUSH UNSCH PRN PRN Reason: FLUSH AFTER USING IV ACCESS Allergies Allergy/AdvReac Type Severity Reaction Status Date / Time No Known Allergies Allergy Unverified 05/13/18 14:48 Home Medications Medication Instructions Recorded Confirmed Type albuterol sulfate [Ventolin HFA] 2 puff INHALATION QID PRN 05/13/18 05/16/18 History bethanechol chloride 25 mg PO QID 05/13/18 05/16/18 History budesonide-formoterol [Symbicort] 2 puff INHALATION Q12H 05/13/18 05/13/18 History calcium carbonate [Tums] 200 mg PO Q12HR 05/13/18 05/16/18 History carvedilol [Coreg] 3.125 mg PO BID 05/13/18 05/16/18 History cyanocobalamin (vitamin B-12) 2,000 mcg PO DAILY 05/13/18 05/16/18 History famotidine [Pepcid] 20 mg PO DAILY 05/13/18 05/13/18 History ferrous sulfate 324 mg PO DAILY 05/13/18 05/16/18 History folic acid 1 mg PO DAILY 05/13/18 05/16/18 History ipratropium-albuterol 3 ml INHALATION Q4HR 05/13/18 05/16/18 History omeprazole 20 mg PO BIDAC 05/13/18 05/16/18 History polyethylene glycol 3350 17 gm PO DAILY 05/13/18 05/13/18 History tamsulosin [Flomax] 0.8 mg PO DAILY 05/13/18 05/16/18 History Lactobacillus rhamnosus GG 1 cap PO DAILY 05/16/18 05/16/18 History [Culturelle] ascorbic acid (vitamin C) [Vitamin 500 mg PO BID 05/16/18 05/16/18 History C] bisacodyl [Dulcolax (bisacodyl)] 10 mg [place] DAILY PRN 05/16/18 05/16/18 History budesonide-formoterol [Symbicort] 2 puff INHALATION Q12H 05/16/18 05/16/18 History dronabinol [Marinol] 2.5 mg PO DAILY 05/16/18 05/16/18 History furosemide [Lasix] 40 mg PO DAILY 05/16/18 05/16/18 History guaifenesin 10 ml PO Q6HR 05/16/18 05/16/18 History ipratropium-albuterol 3 ml INHALATION Q4HR PRN 05/16/18 05/16/18 History magnesium hydroxide [Milk of 30 ml PO DAILY PRN 05/16/18 05/16/18 History Magnesia] memantine [Namenda] 10 mg PO HS 05/16/18 05/16/18 History multivitamin 1 tab PO DAILY 05/16/18 05/16/18 History potassium chloride 20 meq PO DAILY 05/16/18 05/16/18 History psyllium husk (with sugar) 1 packet PO TID PRN 05/16/18 05/16/18 History [Metamucil (with sugar)] simethicone 80 mg PO TIDPC 05/16/18 05/16/18 History trazodone 25 mg PO HS 05/16/18 05/16/18 History zinc sulfate 220 mg PO DAILY 05/16/18 05/16/18 History Exam Vital signs: Vital Signs 05/16/18 17:00 05/16/18 17:43 05/16/18 18:00 Temperature 98.4 F 98.4 F Pulse Rate 100 H 100 H 107 H Respiratory Rate 20 20 24 Blood Pressure 111/80 111/80 Pulse Oximetry 96 96 100 05/16/18 18:23 05/16/18 20:01 Temperature Pulse Rate 100 H 86 Respiratory Rate 21 19 Blood Pressure 118/92 H 90/52 L Pulse Oximetry 100 99 Intake & Output 05/16/18 05/16/18 05/17/18 06:59 18:59 06:59 Intake Total 350 / 350 Balance 350 / 350 Weight 60.963 kg Intake: IV 350 / 350 Azithromycin Inj 500 MG In NS 250 / 250 Inj 250 ML @ 250 mls/hr IV.SIG Q24H [facility] Rx#:[id number] Maxipime Inj 1,000 MG In NS Inj 100 / 100 100 ML @ 200 mls/hr IV.SIG ONCE ONE Rx#:[id number] Narrative: Gen.: No acute distress Head: Normocephalic. Atraumatic. EENT: Pupils equal round and reactive to light. Nose without drainage. Airway intact. Throat without injection. Cardiovascular: Regular rate and rhythm. No murmurs, rubs or gallops. Respiratory: Lungs clear to auscultation bilaterally. No wheezes or rhonchi. Tachypneic and use of accessory muscles. Abdomen: Soft, nontender, nondistended. No peritoneal signs. Musculoskeletal: No gross deformities. No edema. Skin: No obvious rashes or erythema. Neuro: Sensory and motor grossly intact. Cranial nerves II through XII grossly intact. Psych: Appropriate mood and affect Results - Labs CBC & Chem 7: 05/16/18 17:10 05/16/18 17:10 Labs: Laboratory Results - last 24 hr 05/16/18 05/16/18 05/16/18 17:10 17:10 17:10 WBC 3.0 L RBC 2.52 L Hgb 9.3 L Hct 28.2 L MCV 111.8 H MCH 36.8 H MCHC 32.9 RDW 15.5 Plt Count 81 L D MPV 9.3 Prelim Diff (Auto) Slide review pending Neut % (Auto) 75.6 H Lymph % (Auto) 12.8 [place] % (Auto) 10.9 H Eos % (Auto) 0.1 Baso % (Auto) 0.6 Neut # (Auto) 2.3 Lymph # (Auto) 0.4 L [place] # (Auto) 0.3 Eos # (Auto) 0.0 Baso # (Auto) 0.0 WBC Differential . Diff Scan Auto diff confirmed Differential Comment . APTT Sodium 138 Potassium 4.7 Chloride 92 L Carbon Dioxide 41.3 H Anion Gap 5 BUN 25 H Creatinine 0.81 Estimated GFR Greater than 89 Random Glucose 125 H Lactic Acid 0.8 Calcium 8.9 Total Bilirubin 0.5 AST 30 ALT 29 Alkaline Phosphatase 63 Total Creatine Kinase 88 Troponin I 2.35 H* B-Natriuretic Peptide Total Protein 6.6 Albumin 3.0 L 05/16/18 05/16/18 17:10 19:56 WBC RBC Hgb Hct MCV MCH MCHC RDW Plt Count MPV Prelim Diff (Auto) Neut % (Auto) Lymph % (Auto) [place] % (Auto) Eos % (Auto) Baso % (Auto) Neut # (Auto) Lymph # (Auto) [place] # (Auto) Eos # (Auto) Baso # (Auto) WBC Differential Diff Scan Differential Comment APTT 22.6 L Sodium Potassium Chloride Carbon Dioxide Anion Gap BUN Creatinine Estimated GFR Random Glucose Lactic Acid Calcium Total Bilirubin AST ALT Alkaline Phosphatase Total Creatine Kinase Troponin I B-Natriuretic Peptide 2410 H Total Protein Albumin - Imaging Impressions Chest X-Ray 05/16/18 16:57 CONCLUSION: Basilar airspace disease and small pleural effusions are new findings since April 21. Stable apical scarring and pleural thickening. Caprini VTE Risk Assessment Caprini VTE Risk Assessment: Moderate/High Risk (score >= 2) Caprini Risk Assessment Model: Point Value = 1 Point Value = 2 Point Value = 3 Point Value = 5 Age 41-60 Minor surgery BMI > 25 kg/m2 Swollen legs Varicose veins or History of unexplained or recurrent spontaneous Oral contraceptives or hormone replacement Sepsis (< 1 month) Serious lung disease, including pneumonia (< 1 month) Abnormal pulmonary function Acute myocardial infarction Congestive heart failure (< 1 month) History of inflammatory bowel disease Medical patient at bed rest Age 61-74 Arthroscopic surgery Major open surgery (> 45 min) Laparoscopic surgery (> 45 min) Malignancy Confined to bed (> 72 hours) Immobilizing plaster cast Central venous access Age >= 75 History of VTE Family history of VTE Factor V Leiden Prothrombin [id number] Lupus anticoagulant Anticardiolipin antibodies Elevated serum homocysteine Heparin-induced thrombocytopenia Other congenital or acquired thrombophilia Stroke (< 1 month) Elective arthroplasty Hip, pelvis, or leg fracture Acute spinal cord injury (< 1 month) Prophylaxis Regimen: Total Risk Factor Score Risk Level Prophylaxis Regimen 0-1 Low Early ambulation 2 Moderate Order ONE of the following: *Sequential Compression Device (SCD) *Heparin 5000 units SQ BID 3-4 Higher Order ONE of the following medications: *Heparin 5000 units SQ TID *Enoxaparin/Lovenox 40 mg SQ daily (WT < 150 kg, CrCl > 30 mL/min) *Enoxaparin/Lovenox 30 mg SQ daily (WT < 150 kg, CrCl > 10-29 mL/min) *Enoxaparin/Lovenox 30 mg SQ BID (WT < 150 kg, CrCl > 30 mL/min) AND/OR *Sequential Compression Device (SCD) 5 or more Highest Order ONE of the following medications: *Heparin 5000 units SQ TID (Preferred with Epidurals) *Enoxaparin/Lovenox 40 mg SQ daily (WT < 150 kg, CrCl > 30 mL/min) *Enoxaparin/Lovenox 30 mg SQ daily (WT < 150 kg, CrCl > 10-29 mL/min) *Enoxaparin/Lovenox 30 mg SQ BID (WT < 150 kg, CrCl > 30 mL/min) AND *Sequential Compression Device (SCD) Assessment and Plan - Plan Assessment/plan: 1. NSTEMI Initial troponin 2.35 EKG shows paced rhythm without ST segment elevations or depressions, personally reviewed Heparin drip Cardiology consulted, appreciate assistance Serial troponins/EKGs 2. Respiratory distress/COPD Chest x-ray showed basilar airspace disease with small pleural effusions that were new findings since April 21 Continue home Lasix Patient afebrile without white count, not likely infectious in etiology Duo nebs Supplemental oxygen as needed Continue to monitor 3. Heart block Patient with pacemaker 4. Hypertension/dementia Continue home medications FEN N.p.o. Electrolytes: Monitor and replete as needed Heparin drip Code Status: DNR
--- NOTE | 2018-05-16 22:02 | MB ---
cc: Marielos Oseguera MD DATE: 05/16/2018 HISTORY OF PRESENT ILLNESS: Mr. Ferreira is a 87-year-old white male, a patient of Dr. Barajas, with a history of Valles's esophagus, pacemaker placement and suspected chronic leukemia. He developed severe generalized weakness and lethargy at his rehabilitation facility today. He had mild shortness of breath, but no chest pain. He has not had any peripheral edema. He denies any palpitations. PAST MEDICAL HISTORY: Positive for anemia, Valles's esophagus, thrombocytopenia, COPD, gastroesophageal reflux disease, gastroparesis, heart block requiring permanent pacemaker, hypertension, urinary retention, pneumonia, anorexia, history of hernia repair, TURP. The patient has history of suspected CLL. He has required platelet transfusions. ALLERGIES: NONE. MEDICATIONS AT HOME: Include Dulcolax, Milk of Magnesia, bethanechol, Symbicort, calcium, vitamin B12, iron, omeprazole, folic acid, Flomax, Metamucil, ipratropium, albuterol, Marinol, Bentyl, zinc, vitamin C, multivitamin, Namenda, lactobacillus, guaifenesin, trazodone, Lasix, potassium chloride, carvedilol 3.125 twice a day, simethicone, Pepcid, Symbicort, polyethylene glycol. SOCIAL HISTORY: The patient does not smoke, but used to smoke in the past. He does not drink alcohol. He is accompanied by his daughter. FAMILY HISTORY: Negative for heart disease. REVIEW OF SYSTEMS: Otherwise negative. PHYSICAL EXAMINATION: VITAL SIGNS: Blood pressure 118/92, pulse 100 and regular. HEENT: Negative. NECK: 2+ carotid upstrokes. LUNGS: With a few rhonchi. HEART: Regular, 2/6 systolic murmur, no gallop. ABDOMEN: Soft, bruits. CHEST: There is a stable pacemaker site in the left upper chest. EXTREMITIES: Without edema. There is petechiae of skin of lower extremities, 1+ distal pulses. NEUROLOGIC: Grossly nonfocal. The patient is mildly confused. IMAGING: Chest x-ray shows basilar airspace disease and small pleural effusions. STUDY: EKG shows mild sinus tachycardia, ventricular PVCs and ventricular pacing. LABORATORY DATA: Hemoglobin 9.3, white blood cell 3.0, platelets 81, potassium 4.7, creatinine 0.8, AST 30, ALT 29. Troponin 2.35. BNP 2410. DIAGNOSES: 1. Non-ST elevation myocardial infarction. 2. 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 3. Valles's esophagus. 4. Pancytopenia. 5. Chronic obstructive pulmonary disease. 6. Gastroesophageal reflux disease. 7. History of atrioventricular block, h/o pacemaker placement. 8. Hypertension. DISPOSITION AND PLAN: Mr. Ferreira will be monitored on telemetry. We will initiate therapy with baby aspirin and heparin. We will continue beta lo. We will obtain echocardiogram to evaluate his left ventricular function. I recommend to obtain serial enzymes and EKGs. Dr. Barajas, his primary weeder thinner, will see the patient tomorrow. MD EMILY Whittington/BLANCA , 07:13 PM , 10:01 PM ROSIO
[2018-05-16 23:07] LABS: Troponin I 2.82 ng/mL (0.02-0.05)
[2018-05-16 23:48] LABS: Hemoglobin 8.1 gm/dL (13.0-17.0); Mean Corpuscular HGB Conc 32.5 % (32.0-36.0); Mean Corpuscular Hemoglobin 36.3 pg (27.0-34.0); Mean Corpuscular Volume 111.6 fL (80.0-100.0); Mean Platelet Volume 9.4 fL (7.0-11.0); Platelet Count 67 th/mm3 (150-450); Red Blood Count 2.24 mil/mm3 (4.50-5.90); Red Cell Distribution Width 15.5 % (11.6-17.2); White Blood Count 2.8 th/mm3 (4.0-11.0)
[2018-05-17 05:46] LABS: Baso % (Auto) 0.7 % (0.0-2.0); Eos % (Auto) 0.7 % (0.0-4.0); Hematocrit 25.2 % (39.0-51.0); Hemoglobin 8.5 gm/dL (13.0-17.0); Lymph # (Auto) 0.7 th/mm3 (1.0-4.8); Lymph % (Auto) 30.4 % (9.0-44.0); Mean Corpuscular HGB Conc 33.5 % (32.0-36.0); Mean Corpuscular Hemoglobin 36.8 pg (27.0-34.0); Mono # (Auto) 0.3 th/mm3 (0.0-0.9); Mono % (Auto) 14.3 % (0.0-8.0); Neut # (Auto) 1.2 th/mm3 (1.8-7.7); Neut % (Auto) 53.9 % (16.0-70.0); Platelet Count 60 th/mm3 (150-450); Red Blood Count 2.29 mil/mm3 (4.50-5.90); Red Cell Distribution Width 15.2 % (11.6-17.2); White Blood Count 2.2 th/mm3 (4.0-11.0)
[2018-05-17 06:00] LABS: Anion Gap 3 meq/L (5-15); Blood Urea Nitrogen 27 mg/dL (7-18); Calcium 8.6 mg/dL (8.5-10.1); Carbon Dioxide 44.2 meq/L (21.0-32.0); Chloride 94 meq/L (98-107); Glomerular Filtration Rate Greater Than 89 mL/min (>89); Glucose,Random 90 mg/dL (74-106); Potassium 4.1 meq/L (3.5-5.1); Sodium 141 meq/L (136-145)
[2018-05-17 06:05] LABS: Creatine Kinase 78 U/L (39-308)
[2018-05-17 06:50] LABS: Platelet Morphology Normal (Normal)
[2018-05-17] MEDS ORDERED: Furosemide 40 MG Tablet PO SCH (09:00)
--- NOTE | 2018-05-17 09:12 | P.PNCA ---
Subjective Interval history: Ill appearing, cachetic male, lying in bed. Very lethargic, non responsive. On o2 at 3L, sats 93%. Upon arrival from rehab center patient developed generalized weakness and lethargy. He had SOB, no chest pain. On exam today patient rhythm is paced. He has scattered wheezes throughout. Unable to arouse. His WBC is 2.2, platelets 60, hgb 8.5. BNP 2410, receiving lasix 40mg daily. Troponins elevated on admission 2.35, 2.82, 2.50. Physical Exam Vital signs: Vital Signs 05/16/18 17:00 05/16/18 17:43 05/16/18 18:00 Temperature 98.4 F 98.4 F Pulse Rate 100 H 100 H 107 H Respiratory Rate 20 20 24 Blood Pressure 111/80 111/80 Pulse Oximetry 96 96 100 05/16/18 18:23 05/16/18 20:01 05/16/18 21:23 Temperature Pulse Rate 100 H 86 87 Respiratory Rate 21 19 15 Blood Pressure 118/92 H 90/52 L 107/64 Pulse Oximetry 100 99 100 05/16/18 22:34 05/16/18 23:01 05/17/18 01:06 Temperature Pulse Rate 93 H 90 82 Respiratory Rate 15 20 19 Blood Pressure 116/68 99/59 L Pulse Oximetry 97 100 05/17/18 02:18 05/17/18 03:39 05/17/18 04:00 Temperature Pulse Rate 85 90 82 Respiratory Rate 19 18 17 Blood Pressure 109/69 123/58 L Pulse Oximetry 99 100 05/17/18 05:02 05/17/18 05:38 05/17/18 06:32 Temperature 98.3 F 98.3 F Pulse Rate 94 H 94 H Respiratory Rate 16 16 Blood Pressure 116/73 116/73 Pulse Oximetry 100 100 97 05/17/18 07:00 05/17/18 08:00 05/17/18 08:56 Temperature 98 F Pulse Rate 60 89 86 Respiratory Rate 20 18 Blood Pressure 106/73 Pulse Oximetry 100 05/17/18 08:57 Temperature Pulse Rate Respiratory Rate Blood Pressure Pulse Oximetry 94 L Intake & Output 05/16/18 05/17/18 05/17/18 18:59 06:59 18:59 Intake Total 600 / 600 Balance 600 / 600 Weight 60.963 kg 54.5 kg Intake: IV 600 / 600 Azithromycin Inj 500 MG In NS 250 / 250 Inj 250 ML @ 250 mls/hr IV.SIG Q24H MARIANNE Rx#:[id number] Maxipime Inj 1,000 MG In NS Inj 100 / 100 100 ML @ 200 mls/hr IV.SIG ONCE ONE Rx#:[id number] Other: Weight On Admission 54.5 kg - Constitutional moderate distress, cachectic, chronically ill appearing, obtunded - Routine HEENT Exam Head: Present: normocephalic ENT: Present: mucous membranes dry - Routine Neck Exam Comments: No JVD - Routine Respiratory Exam Present: wheezes, diminished air movement - Routine Cardiovascular Exam Comments: Paced rhythm - Routine Extremities Exam Present: amputation Comments: No edema, right distal foot amputation - Routine Skin Exam Present: dry - Routine Neurological Exam Difficult to arouse. Opened eyes after sternal rub. - Detailed Neurological Exam: Coma Scale Eye Opening: To pressure (Difficult to arouse, lethargic, unable to take AM meds ) Verbal Response: Sounds Assessment and Plan - Plan Assessment Non ST elevation ID Suspected CLL COPD History of AV block, status post pacemaker placement HTN CHF Lethargy-change in mental status Plan Continues on heparin drip. Cachetic ill appearing male. Difficult to arouse. Patient is a DNR. He is not a candidate for heart cath. Family does not want any invasive procedures. Will manage medically. On Coreg. Hematology consulted Scheduled nebulizer treatments Pacemaker in place, paced rhythm. Low today BNP 2410, unable to take PO meds. Switched to lasix 20mg IV push daily. Pending echo. Spoke with son, daughter and grand daughter about patients condition. Patient is a DNR and the family is considering hospice if he does not improve. Yanni Dillon -pts daughter is power of commonwealth attorney. The patient was seen and evaluated by Dr. Barajas who completed face to face encounter and physical exam and participated in care, management and decision making. Discussed Condition With: Nurse, Spoke to daughter, son and grand daughter, tried to call . Daughter Yanni is POA.
[2018-05-17] MEDS: Pantoprazole Sodium 20 MG DR Tablet PO SCH ×2 (09:18→17:00)
--- NOTE | 2018-05-17 09:45 | ECG ---
Date Performed: 05/16/2018 Time Performed: 22:21:35 PTAGE: 87 years EKG: ELECTRONIC VENTRICULAR PACEMAKER ABNORMAL RHYTHM ECG Since the PREVIOUS TRACING , no significant change noted PREVIOUS TRACIN05/16/2018 16.49 DOCTOR: Aristides Krishna Interpretating Date/Time 05/17/2018 09:43:33
--- NOTE | 2018-05-17 09:45 | ECG ---
Date Performed: 05/16/2018 Time Performed: 16:49:37 PTAGE: 87 years EKG: ELECTRONIC VENTRICULAR PACEMAKER ABNORMAL RHYTHM ECG Since the PREVIOUS TRACING , no significant change noted PREVIOUS TRACING DOCTOR: Aristides Krishna Interpretating Date/Time 05/17/2018 09:43:45
--- NOTE | 2018-05-17 10:37 | P.PNIM ---
Subjective Interval history: 87-year-old male with a past medical history significant for COPD, heart block status post pacemaker, dementia, Valles's esophagus and hypertension presents to the emergency department from his assisted living facility for the evaluation of respiratory distress. The patient was evaluated in his [place] [facility] and was found to be tachypneic and breathing irregularly. Evaluation in the emergency department revealed a troponin of 2.35. The patient is unable to answer my questions but will open his eyes to sternal rub. 7-9 MUCH MORE ALERT TODAY KNOWS AT [facility] THOUGHT CARA YBARRA WAS PRESIDENT DW RN AND PT AND FAMILY AM LABS PT AND OT CONSULT HEMATOLOGY PENDING Physical Exam Vital signs: Vital Signs 05/16/18 17:00 05/16/18 17:43 05/16/18 18:00 Temperature 98.4 F 98.4 F Pulse Rate 100 H 100 H 107 H Respiratory Rate 20 20 24 Blood Pressure 111/80 111/80 Pulse Oximetry 96 96 100 05/16/18 18:23 05/16/18 20:01 05/16/18 21:23 Temperature Pulse Rate 100 H 86 87 Respiratory Rate 21 19 15 Blood Pressure 118/92 H 90/52 L 107/64 Pulse Oximetry 100 99 100 05/16/18 22:34 05/16/18 23:01 05/17/18 01:06 Temperature Pulse Rate 93 H 90 82 Respiratory Rate 15 20 19 Blood Pressure 116/68 99/59 L Pulse Oximetry 97 100 05/17/18 02:18 05/17/18 03:39 05/17/18 04:00 Temperature Pulse Rate 85 90 82 Respiratory Rate 19 18 17 Blood Pressure 109/69 123/58 L Pulse Oximetry 99 100 05/17/18 05:02 05/17/18 05:38 05/17/18 06:32 Temperature 98.3 F 98.3 F Pulse Rate 94 H 94 H Respiratory Rate 16 16 Blood Pressure 116/73 116/73 Pulse Oximetry 100 100 97 05/17/18 07:00 05/17/18 08:00 05/17/18 08:56 Temperature 98 F Pulse Rate 60 89 86 Respiratory Rate 20 18 Blood Pressure 106/73 Pulse Oximetry 100 05/17/18 08:57 Temperature Pulse Rate Respiratory Rate Blood Pressure Pulse Oximetry 94 L Intake & Output 05/16/18 05/17/18 05/17/18 18:59 06:59 18:59 Intake Total 600 / 600 Balance 600 / 600 Weight 60.963 kg 54.5 kg Intake: IV 600 / 600 Azithromycin Inj 500 MG In NS 250 / 250 Inj 250 ML @ 250 mls/hr IV.SIG Q24H MARIANNE Rx#:[id number] Maxipime Inj 1,000 MG In NS Inj 100 / 100 100 ML @ 200 mls/hr IV.SIG ONCE ONE Rx#:[id number] Other: Weight On Admission 54.5 kg Narrative: GENERAL: Awake alert and oriented 2 talkative and cooperative SKIN: Warm and dry. HEAD: Atraumatic. Normocephalic. EYES: Pupils equal and round. No scleral icterus. No injection or drainage. ENT: No nasal bleeding or discharge. Mucous membranes pink and moist. Tongue is midline NECK: Trachea midline. No JVD. Supple CARDIOVASCULAR: IRRegular rate and rhythm. S1-S2 no S3 or S4 RESPIRATORY: No accessory muscle use. Clear to auscultation. Breath sounds equal bilaterally. GASTROINTESTINAL: Abdomen soft, non-tender, nondistended. Hepatic and splenic margins not palpable. MUSCULOSKELETAL: Extremities without clubbing, cyanosis, or edema. No obvious deformities. Right TMA NEUROLOGICAL: Awake and alert. No obvious cranial nerve deficits. Motor grossly within normal limits. 4 out of 5 muscle strength in the arms and legs. Normal speech. PSYCHIATRIC: Appropriate mood and affect; insight and judgment ABnormal. Results - Labs CBC & Chem 7: 05/17/18 05:28 05/17/18 05:28 Laboratory Results - last 24 hr 05/16/18 05/16/18 05/16/18 17:10 17:10 17:10 WBC 3.0 L RBC 2.52 L Hgb 9.3 L Hct 28.2 L MCV 111.8 H MCH 36.8 H MCHC 32.9 RDW 15.5 Plt Count 81 L D MPV 9.3 Prelim Diff (Auto) Slide review pending Neut % (Auto) 75.6 H Lymph % (Auto) 12.8 Hodgeman % (Auto) 10.9 H Eos % (Auto) 0.1 Baso % (Auto) 0.6 Neut # (Auto) 2.3 Lymph # (Auto) 0.4 L Hodgeman # (Auto) 0.3 Eos # (Auto) 0.0 Baso # (Auto) 0.0 WBC Differential . Diff Scan Auto diff confirmed Differential Comment . Platelet Estimate Platelet Morphology APTT Sodium 138 Potassium 4.7 Chloride 92 L Carbon Dioxide 41.3 H Anion Gap 5 BUN 25 H Creatinine 0.81 Estimated GFR Greater than 89 Random Glucose 125 H Lactic Acid 0.8 Calcium 8.9 Total Bilirubin 0.5 AST 30 ALT 29 Alkaline Phosphatase 63 Total Creatine Kinase 88 Troponin I 2.35 H* B-Natriuretic Peptide Total Protein 6.6 Albumin 3.0 L 05/16/18 05/16/18 05/16/18 17:10 19:56 22:25 WBC 2.8 L RBC 2.24 L Hgb 8.1 L Hct 25.0 L MCV 111.6 H MCH 36.3 H MCHC 32.5 RDW 15.5 Plt Count 67 L MPV 9.4 Prelim Diff (Auto) Neut % (Auto) Lymph % (Auto) Hodgeman % (Auto) Eos % (Auto) Baso % (Auto) Neut # (Auto) Lymph # (Auto) Hodgeman # (Auto) Eos # (Auto) Baso # (Auto) WBC Differential Diff Scan Differential Comment Platelet Estimate Platelet Morphology APTT 22.6 L Sodium Potassium Chloride Carbon Dioxide Anion Gap BUN Creatinine Estimated GFR Random Glucose Lactic Acid Calcium Total Bilirubin AST ALT Alkaline Phosphatase Total Creatine Kinase Troponin I B-Natriuretic Peptide 2410 H Total Protein Albumin 05/16/18 05/17/18 05/17/18 22:25 01:05 05:28 WBC RBC Hgb Hct MCV MCH MCHC RDW Plt Count MPV Prelim Diff (Auto) Neut % (Auto) Lymph % (Auto) Hodgeman % (Auto) Eos % (Auto) Baso % (Auto) Neut # (Auto) Lymph # (Auto) Hodgeman # (Auto) Eos # (Auto) Baso # (Auto) WBC Differential Diff Scan Differential Comment Platelet Estimate Platelet Morphology APTT 27.3 D Sodium 141 Potassium 4.1 Chloride 94 L Carbon Dioxide 44.2 H Anion Gap 3 L BUN 27 H Creatinine 0.75 Estimated GFR Greater than 89 Random Glucose 90 Lactic Acid Calcium 8.6 Total Bilirubin AST ALT Alkaline Phosphatase Total Creatine Kinase 84 78 Troponin I 2.82 H* 2.50 H* B-Natriuretic Peptide Total Protein Albumin 05/17/18 05/17/18 05:28 07:47 WBC 2.2 L RBC 2.29 L Hgb 8.5 L Hct 25.2 L MCV 110.0 H MCH 36.8 H MCHC 33.5 RDW 15.2 Plt Count 60 L MPV 9.0 Prelim Diff (Auto) Slide review pending Neut % (Auto) 53.9 Lymph % (Auto) 30.4 Hodgeman % (Auto) 14.3 H Eos % (Auto) 0.7 Baso % (Auto) 0.7 Neut # (Auto) 1.2 L Lymph # (Auto) 0.7 L Hodgeman # (Auto) 0.3 Eos # (Auto) 0.0 Baso # (Auto) 0.0 WBC Differential . Diff Scan Auto diff confirmed Differential Comment . Platelet Estimate Low L Platelet Morphology Normal APTT 34.7 H D Sodium Potassium Chloride Carbon Dioxide Anion Gap BUN Creatinine Estimated GFR Random Glucose Lactic Acid Calcium Total Bilirubin AST ALT Alkaline Phosphatase Total Creatine Kinase Troponin I B-Natriuretic Peptide Total Protein Albumin - Imaging Impressions Chest X-Ray 05/16/18 16:57 CONCLUSION: Basilar airspace disease and small pleural effusions are new findings since April 21. Stable apical scarring and pleural thickening. Assessment and Plan - Plan 1. NSTEMI Initial troponin 2.35 EKG shows paced rhythm without ST segment elevations or depressions, personally reviewed Heparin drip Cardiology consulted, appreciate assistance Serial troponins/EKGs 2. Respiratory distress/COPD Chest x-ray showed basilar airspace disease with small pleural effusions that were new findings since April 21 Continue home Lasix Patient afebrile without white count, not likely infectious in etiology Duo nebs Supplemental oxygen as needed Continue to monitor 3. Heart block Patient with pacemaker 4. Hypertension/dementia Continue home medications 5. ANEMIA/LEUKOPENIA CONSULT HEMATOLOGY GAIT INSTABILITY CONSULT PT AND OT FEN N.p.o. Electrolytes: Monitor and replete as needed Heparin drip Code Status: DNR Discussed Condition With: RN and patient and family Discharge Planning: Pending clearance by all
[2018-05-17 10:43] LABS: ABG Base Excess 18.7 mmol/L (-2-2); ABG PCO2 70 mmHg (38-42); ABG PO2 109 mmHG (61-120)
[2018-05-17] MEDS: Ascorbic Acid 500 MG Tablet PO SCH ×2 (11:21→20:55)
[2018-05-17] MEDS: Folic Acid 1 MG Tablet PO SCH (11:21)
[2018-05-17] MEDS: Lactobacillus Acidophilus/L. Spores Tablet PO SCH (11:21)
[2018-05-17] MEDS: DRONABINOL 2.5 MG CAPSULE PO SCH (12:38)
[2018-05-17] MEDS: Simethicone 80 MG Chew Tablet PO SCH ×2 (12:38→17:33)
[2018-05-17] MEDS ORDERED: Psyllium Husk SF 3.4 GM in 5.8 GM Packet PO PRN (13:00)
--- NOTE | 2018-05-17 14:29 | ECG ---
Date Performed: 05/17/2018 Time Performed: 05:59:28 PTAGE: 87 years EKG: PACED RYTHMN WITH FREQUENT PVCS Since the PREVIOUS TRACING , no significant change noted PREVIOUS TRACING 05/16/2018 DOCTOR: Aristides Krishna Interpretating Date/Time 05/17/2018 14:29:21
--- NOTE | 2018-05-17 18:51 | P.PNWCN ---
Wound Care Nurse Consult Description: Received consult from Doctor Estrada for pressure ulcer to sacrum. Communicated with: ABISAI Black and Doctor Recommendation: 1.Please cleanse wound to sacrum with normal saline or wound cleanser and pat dry. 2. Apply skin barrier film to periwound before applying optifoam gentle 4x4 dressing. Change dressing every 3 days or PRN if saturated or dislodged, 3. Place patient on low airloss airapy bed from environmental. 4. Turn patient from R side to L side every 2 hours or as needed for comfort and offloading of pressure from maryse prominences Wound/Pressure Injury - Wound Sacrum Wound Staging: Stage III Wound Assessment: Admission Wound Type: Pressure Injury Is This a Chronic Wound: No Requested from Provider a Wound Care Consult: Yes (Wound care saw patient today) Length: 2 (cm) Width: 0.6 (cm) Depth: 0.2 (~0.2cm) Wound Bed Appearance: [place], Red, White Wound Bed Appearance: Wound bed presents with ~40% red non granulation tissue, ~30% thin yellow tissue and ~20% white tissue. Surrounding Tissue Appearance: Erythema (Blanchable) Surrounding Tissue Temperature: Warm Drainage Description: Serosanguinous Drainage Amount: Scant Drainage Odor: No Odor Dressing Status: Changed Cleansing Solution: Saline Primary Dressing: optifoam gentle 4x4 Wound Dressing Change Date: 05/17/18 Wound Margin Description: Wound margins are well defined and open - Additional Information Patient seen on CPCU for evaluation of possible pressure injury to sacrum.Patient is laying in Deena bed and is alert and appears cachetic. Patient was positioned by self with minimal assist from video game script writer to L side. Patient is noted with small shallow stage III pressure injury to sacrum. Wound description and measurements are noted above. Wound was cleansed with normal saline and patted dry. Skin barrier film was applied to periwound before adhesive foam dressing was applied. Replaced saturated underpad. Patient was then repositioned to work with P.T.Wound care recommendations are noted above.
[2018-05-17] MEDS: Azithromycin Inj 500 MG in Sodium Chlor 0.9% Inj 250 ML IV.SIG SCH (20:53)
[2018-05-17] MEDS: traZODone 50 MG Tablet PO SCH (20:54)
[2018-05-18 08:00] LABS: Baso % (Auto) 0.7 % (0.0-2.0); Eos % (Auto) 2.1 % (0.0-4.0); Hematocrit 25.3 % (39.0-51.0); Hemoglobin 8.3 gm/dL (13.0-17.0); Lymph # (Auto) 0.6 th/mm3 (1.0-4.8); Mean Corpuscular HGB Conc 32.8 % (32.0-36.0); Mean Corpuscular Hemoglobin 36.5 pg (27.0-34.0); Mean Corpuscular Volume 111.3 fL (80.0-100.0); Mean Platelet Volume 8.5 fL (7.0-11.0); Mono # (Auto) 0.2 th/mm3 (0.0-0.9); Mono % (Auto) 13.8 % (0.0-8.0); Neut # (Auto) 0.8 th/mm3 (1.8-7.7); Neut % (Auto) 45.4 % (16.0-70.0); Platelet Count 55 th/mm3 (150-450); Red Blood Count 2.27 mil/mm3 (4.50-5.90); Red Cell Distribution Width 15.5 % (11.6-17.2); White Blood Count 1.7 th/mm3 (4.0-11.0)
[2018-05-18 08:22] LABS: Albumin 2.5 g/dL (3.4-5.0); Anion Gap 6 meq/L (5-15); Aspartate Aminotransferase 19 U/L (15-37); Blood Urea Nitrogen 26 mg/dL (7-18); Calcium 9.2 mg/dL (8.5-10.1); Carbon Dioxide 42.2 meq/L (21.0-32.0); Chloride 94 meq/L (98-107); Glomerular Filtration Rate Greater Than 89 mL/min (>89); Glucose,Random 87 mg/dL (74-106); Magnesium 2.4 mg/dL (1.5-2.5); Potassium 4.2 meq/L (3.5-5.1); Sodium 142 meq/L (136-145)
[2018-05-18 08:24] LABS: Alanine Aminotransferase 21 U/L (12-78); Cholesterol 143 mg/dL (120-200); Phosphorus 3.1 mg/dL (2.5-4.9); Triglycerides 81 mg/dL (42-150)
[2018-05-18 08:32] LABS: Alkaline Phosphatase 52 U/L (45-117); Free T4 (Free Thyroxine) 1.13 ng/dL (0.76-1.46); LDL Cholesterol,Calculated 70 mg/dL (0-99); Total Protein 5.3 g/dL (6.4-8.2)
[2018-05-18] MEDS ORDERED: Aspirin 325 MG Tablet PO SCH (09:00)
[2018-05-18] MEDS: Folic Acid 1 MG Tablet PO SCH (09:05)
[2018-05-18] MEDS: Ascorbic Acid 500 MG Tablet PO SCH ×2 (09:05→21:17)
[2018-05-18] MEDS: DRONABINOL 2.5 MG CAPSULE PO SCH (09:05)
[2018-05-18] MEDS: Lactobacillus Acidophilus/L. Spores Tablet PO SCH (09:16)
[2018-05-18] MEDS: Simethicone 80 MG Chew Tablet PO SCH ×3 (09:16→18:49)
[2018-05-18] MEDS: Pantoprazole Sodium 20 MG DR Tablet PO SCH ×2 (09:19→17:13)
[2018-05-18 09:45] LABS: Eosinophils 2 % (0-4); Lymphocytes 46 % (9-44); Monocytes 6 % (0-8)
[2018-05-18 09:48] LABS: Platelet Morphology Normal (Normal)
--- NOTE | 2018-05-18 10:16 | P.PNCA ---
Subjective Interval history: Patient is much more alert and awake this AM. He is oriented to self. Sitting up in bed eating breakfast. He denies any chest pain. Continues on O2. Physical Exam Vital signs: Vital Signs 05/17/18 11:00 05/17/18 12:43 05/17/18 15:00 Temperature 98 F 97.9 F Pulse Rate 79 89 84 Respiratory Rate 18 18 16 Blood Pressure 115/54 L 117/65 Pulse Oximetry 05/17/18 19:00 05/17/18 20:00 05/17/18 20:25 Temperature 98 F Pulse Rate 86 89 84 Respiratory Rate 16 16 Blood Pressure 123/60 Pulse Oximetry 96 05/17/18 21:00 05/17/18 22:00 05/17/18 23:00 Temperature 97.5 F L Pulse Rate 80 82 76 Respiratory Rate 16 Blood Pressure 103/70 Pulse Oximetry 100 05/18/18 00:00 05/18/18 00:15 05/18/18 00:21 Temperature Pulse Rate 82 86 Respiratory Rate 18 Blood Pressure Pulse Oximetry 100 05/18/18 01:00 05/18/18 02:00 05/18/18 03:00 Temperature 97.5 F L Pulse Rate 71 73 81 Respiratory Rate 16 Blood Pressure 110/65 Pulse Oximetry 100 05/18/18 03:56 05/18/18 04:00 05/18/18 05:25 Temperature Pulse Rate 83 85 80 Respiratory Rate 18 Blood Pressure Pulse Oximetry 05/18/18 06:00 05/18/18 07:00 05/18/18 08:23 Temperature 97.7 F Pulse Rate 78 80 67 Respiratory Rate 12 16 Blood Pressure 109/56 L Pulse Oximetry 94 L 100 Intake & Output 05/17/18 05/18/18 05/18/18 18:59 06:59 18:59 Intake Total 580 / 580 490 / 490 Output Total 100 / 100 Balance 580 / 580 390 / 390 Weight 53.5 kg Intake: IV 100 / 100 250 / 250 Heparin/D5W 25,000 U/250 mL 25, 100 / 100 000 unit In 250 ml @ Per Protocol IV.CONT TITRATE PRN Rx #:[id number] Azithromycin Inj 500 MG In NS 250 / 250 Inj 250 ML @ 250 mls/hr IV.SIG Q24H MARIANNE Rx#:[id number] Oral 480 / 480 240 / 240 Output: Urine 100 / 100 Other: # Voids 3 # Incontinent Voids 2 # Bowel Movements 0 - Constitutional no acute distress - Routine HEENT Exam Head: Present: normocephalic, atraumatic Eye: Present: normal accommodation ENT: Present: mucous membranes moist - Routine Respiratory Exam Present: wheezes, diminished air movement - Routine Cardiovascular Exam Comments: Paced rhythm - Routine Abdominal Exam Present: soft - Routine Extremities Exam Present: amputation - Routine Skin Exam Present: intact - Routine Neurological Exam Present: alert oriented to self - Detailed Neurological Exam: Coma Scale Eye Opening: To sound Verbal Response: Confused Motor Response: Obey commands Cat Coma Scale Total: 13 - Routine Psychiatric Exam Present: normal affect Assessment and Plan - Plan Assessment Non ST elevation IN Anemia, ? CLL COPD History of AV block, status post pacemaker placement HTN CHF Lethargy-change in mental status Plan Cachetic ill appearing male. He is not a good candidate for heart cath. Family does not want any invasive procedures. Will manage medically. On Coreg. Denies any chest pain. Heparin Dcd yesterday. Aspirin Dcd due to low plt and hgb. Awaiting hematology consult. Hematology consulted Scheduled nebulizer treatments, breathing has improved this AM. Pacemaker in place, paced rhythm. BP running low. No signs of fluid overload on exam. Switched back to PO lasix. Pending echo. The patient was seen and evaluated by Dr. Barajas who completed face to face encounter and physical exam and participated in care, management and decision making. Code Status: DNR Discussed Condition With: Nurse
--- NOTE | 2018-05-18 10:29 | P.PNIM ---
Subjective Interval history: 87-year-old male with a past medical history significant for COPD, heart block status post pacemaker, dementia, Valles's esophagus and hypertension presents to the emergency department from his assisted living facility for the evaluation of respiratory distress. The patient was evaluated in his [facility] and was found to be tachypneic and breathing irregularly. Evaluation in the emergency department revealed a troponin of 2.35. The patient is unable to answer my questions but will open his eyes to sternal rub. 7-9 MUCH MORE ALERT TODAY KNOWS AT [facility] THOUGHT CARA YBARRA WAS PRESIDENT [facility] RN AND PT AND FAMILY AM LABS PT AND OT CONSULT HEMATOLOGY 7-10 CONSULT HEMATOLOGY PENDING SEEN BY CARDIOLOGY FAMILY NOT WANTING ANY CARDIAC PROCEDURES AT THIS TIME [facility] PT PCP IN [facility] DR REDMOND YESTERDAY AM LABS CONTINUE PT AND OT KNOWS [facility] AND [facility] M[facility]ON[facility] TODAY MUCH MORE ALERT Physical Exam Vital signs: Vital Signs 05/17/18 11:00 05/17/18 12:43 05/17/18 15:00 Temperature 98 F 97.9 F Pulse Rate 79 89 84 Respiratory Rate 18 18 16 Blood Pressure 115/54 L 117/65 Pulse Oximetry 05/17/18 19:00 05/17/18 20:00 05/17/18 20:25 Temperature 98 F Pulse Rate 86 89 84 Respiratory Rate 16 16 Blood Pressure 123/60 Pulse Oximetry 96 05/17/18 21:00 05/17/18 22:00 05/17/18 23:00 Temperature 97.5 F L Pulse Rate 80 82 76 Respiratory Rate 16 Blood Pressure 103/70 Pulse Oximetry 100 05/18/18 00:00 05/18/18 00:15 05/18/18 00:21 Temperature Pulse Rate 82 86 Respiratory Rate 18 Blood Pressure Pulse Oximetry 100 05/18/18 01:00 05/18/18 02:00 05/18/18 03:00 Temperature 97.5 F L Pulse Rate 71 73 81 Respiratory Rate 16 Blood Pressure 110/65 Pulse Oximetry 100 05/18/18 03:56 05/18/18 04:00 05/18/18 05:25 Temperature Pulse Rate 83 85 80 Respiratory Rate 18 Blood Pressure Pulse Oximetry 05/18/18 06:00 05/18/18 07:00 05/18/18 08:23 Temperature 97.7 F Pulse Rate 78 80 67 Respiratory Rate 12 16 Blood Pressure 109/56 L Pulse Oximetry 94 L 100 Intake & Output 05/17/18 05/18/18 05/18/18 18:59 06:59 18:59 Intake Total 580 / 580 490 / 490 Output Total 100 / 100 Balance 580 / 580 390 / 390 Weight 53.5 kg Intake: IV 100 / 100 250 / 250 Heparin/D5W 25,000 U/250 mL 25, 100 / 100 000 unit In 250 ml @ Per Protocol IV.CONT TITRATE PRN Rx #:[id number] Azithromycin Inj 500 MG In NS 250 / 250 Inj 250 ML @ 250 mls/hr IV.SIG Q24H MARIANNE Rx#:[id number] Oral 480 / 480 240 / 240 Output: Urine 100 / 100 Other: # Voids 3 # Incontinent Voids 2 # Bowel Movements 0 Narrative: GENERAL: Awake alert and oriented 3 talkative and cooperative SKIN: Warm and dry. HEAD: Atraumatic. Normocephalic. EYES: Pupils equal and round. No scleral icterus. No injection or drainage. ENT: No nasal bleeding or discharge. Mucous membranes pink and moist. Tongue is midline NECK: Trachea midline. No JVD. Supple CARDIOVASCULAR: IRRegular rate and rhythm. S1-S2 no S3 or S4 RESPIRATORY: No accessory muscle use. Clear to auscultation. Breath sounds equal bilaterally. GASTROINTESTINAL: Abdomen soft, non-tender, nondistended. Hepatic and splenic margins not palpable. MUSCULOSKELETAL: Extremities without clubbing, cyanosis, or edema. No obvious deformities. Right TMA NEUROLOGICAL: Awake and alert. No obvious cranial nerve deficits. Motor grossly within normal limits. 4 out of 5 muscle strength in the arms and legs. Normal speech. PSYCHIATRIC: Appropriate mood and affect; insight and judgment ABnormal. Results - Labs CBC & Chem 7: 05/18/18 06:47 05/18/18 06:47 Laboratory Results - last 24 hr 05/17/18 05/17/18 05/18/18 10:30 15:51 06:47 WBC 1.7 L RBC 2.27 L Hgb 8.3 L Hct 25.3 L MCV 111.3 H MCH 36.5 H MCHC 32.8 RDW 15.5 Plt Count 55 L MPV 8.5 Prelim Diff (Auto) Slide review pending Neut % (Auto) 45.4 Lymph % (Auto) 38.0 Greenlee % (Auto) 13.8 H Eos % (Auto) 2.1 Baso % (Auto) 0.7 Neut # (Auto) 0.8 L Lymph # (Auto) 0.6 L Greenlee # (Auto) 0.2 Eos # (Auto) 0.0 Baso # (Auto) 0.0 WBC Differential Manual diff final Seg Neuts % (Manual) 46 Lymphocytes % (Manual) 46 H Monocytes % (Manual) 6 Eosinophils % (Manual) 2 Abs Neuts (Manual) 0.8 L Differential Comment . Platelet Estimate Low L Platelet Morphology Normal Keratocytes 1+ H APTT 29.3 Puncture Site Right radial Patient Temperature 98.6 O2 Saturation 96 ABG pH 7.42 ABG pCO2 70 H* ABG pO2 109 ABG HCO3 44 H ABG O2 Content 12.1 ABG Base Excess 18.7 H ABG Methemoglobin 1.0 Daryl Test Present Hemoglobin 8.9 L Carboxyhemoglobin 1.3 O2 Delivery Device Sm Liter Flow 6.00 Inspired O2 21 Critical Value No Sodium Potassium Chloride Carbon Dioxide Anion Gap BUN Creatinine Estimated GFR Random Glucose Calcium Phosphorus Magnesium Total Bilirubin AST ALT Alkaline Phosphatase Total Protein Albumin Triglycerides Cholesterol LDL Cholesterol, Calc HDL Cholesterol Cholesterol/HDL Ratio TSH Free T4 05/18/18 06:47 WBC RBC Hgb Hct MCV MCH MCHC RDW Plt Count MPV Prelim Diff (Auto) Neut % (Auto) Lymph % (Auto) Greenlee % (Auto) Eos % (Auto) Baso % (Auto) Neut # (Auto) Lymph # (Auto) Greenlee # (Auto) Eos # (Auto) Baso # (Auto) WBC Differential Seg Neuts % (Manual) Lymphocytes % (Manual) Monocytes % (Manual) Eosinophils % (Manual) Abs Neuts (Manual) Differential Comment Platelet Estimate Platelet Morphology Keratocytes APTT Puncture Site Patient Temperature O2 Saturation ABG pH ABG pCO2 ABG pO2 ABG HCO3 ABG O2 Content ABG Base Excess ABG Methemoglobin Daryl Test Hemoglobin Carboxyhemoglobin O2 Delivery Device Liter Flow Inspired O2 Critical Value Sodium 142 Potassium 4.2 Chloride 94 L Carbon Dioxide 42.2 H Anion Gap 6 BUN 26 H Creatinine 0.65 Estimated GFR Greater than 89 Random Glucose 87 Calcium 9.2 Phosphorus 3.1 Magnesium 2.4 Total Bilirubin 0.4 AST 19 ALT 21 Alkaline Phosphatase 52 Total Protein 5.3 L D Albumin 2.5 L Triglycerides 81 Cholesterol 143 LDL Cholesterol, Calc 70 HDL Cholesterol 57.0 Cholesterol/HDL Ratio 2.50 TSH 2.030 Free T4 1.13 Microbiology 05/16/18 17:15 Blood - Peripheral Aerobic Blood Culture - Preliminary No growth in 1 day 05/16/18 17:15 Blood - Peripheral Anaerobic Blood Culture - Preliminary No growth in 1 day 05/16/18 17:10 Blood - Peripheral Aerobic Blood Culture - Preliminary No growth in 1 day 05/16/18 17:10 Blood - Peripheral Anaerobic Blood Culture - Preliminary No growth in 1 day - Imaging ITS Impressions Chest X-Ray 05/16/18 16:57 CONCLUSION: Basilar airspace disease and small pleural effusions are new findings since April 21. Stable apical scarring and pleural thickening. Assessment and Plan - Plan 1. NSTEMI Initial troponin 2.35 EKG shows paced rhythm without ST segment elevations or depressions, personally reviewed Heparin drip Cardiology consulted, appreciate assistance Serial troponins/EKGs NO INTERVENTIONS PER CARDIO 2. Respiratory distress/COPD/CO2 RETENTION Chest x-ray showed basilar airspace disease with small pleural effusions that were new findings since April 21 Continue home Lasix Patient afebrile without white count, not likely infectious in etiology Duo nebs Supplemental oxygen as needed Continue to monitor BREATHING BETTER ON LESS OXYGEN 3. Heart block Patient with pacemaker 4. Hypertension/dementia Continue home medications 5. ANEMIA/LEUKOPENIA CONSULT HEMATOLOGY POSSIBLE myelodysplastic syndrome GAIT INSTABILITY CONSULT PT AND OT FEN N.p.o. Electrolytes: Monitor and replete as needed Heparin drip Code Status: DNR Discussed Condition With: RN AND PT AND CASE MANAGEMENT Discharge Planning: Pending clearance by all
--- NOTE | 2018-05-18 15:05 | ECHRPT ---
Indication: SHORTNESS OF BREATH CONCLUSIONS Severely dilated left ventricle. Mild concentric left ventricular hypertrophy. The left ventricular systolic function is severely reduced with an estimated ejection fraction in th e range of 20-25%. There is global left ventricular dysfunction. The right ventricular systoilc function is moderately decreased. The right ventricle is moderately dilated. The left atrial size is [id number] dilated. The right atrial size is [id number] dilated. Mild mitral valve regurgitation. There is mild tricuspid valve regurgitation. The estimated pulmonary arterial pressure is 29.9 mmHg. A right sided pleural effusion is present. BP: / HR: Rhythm: Atrial fibrillation, MEASUREMENTS (Male / Female) Normal Values Technical Quality:Very technically difficult study 2D ECHO LV Diastolic Diameter PLAX 8.1 cm 4.2 - 5.9 / 3.9 - 5.3 cm LV Systolic Diameter PLAX 7.4 cm IVS Diastolic Thickness 1.1 cm 0.6 - 1.0 / 0.6 - 0.9 cm LVPW Diastolic Thickness 1.1 cm 0.6 - 1.0 / 0.6 - 0.9 cm LV Relative Wall Thickness 0.3 DOPPLER AV Peak Velocity 102.0 cm/s AV Peak Gradient 4.2 mmHg AV Mean Gradient 2.0 mmHg AV Velocity Time Integral 21.4 cm LVOT Peak Velocity 58.7 cm/s LVOT Peak Gradient 1.4 mmHg LVOT Velocity Time Integral 10.3 cm Mitral E Point Velocity 59.7 cm/s Mitral A Point Velocity 86.4 cm/s Mitral E to A Ratio 0.7 LV E' Lateral Velocity 8.8 cm/s Mitral E to LV E' Lateral Ratio 6.8 LV E' Septal Velocity 5.4 cm/s Mitral E to LV E' Septal Ratio 11.1 TR Peak Velocity 223.0 cm/s TR Peak Gradient 19.9 mmHg Right Atrial Pressure 10.0 mmHg Pulmonary Artery Systolic Pressu 29.9 mmHg Right Ventricular Systolic Press 29.9 mmHg FINDINGS LEFT VENTRICLE Severely dilated left ventricle. Mild concentric left ventricular hypertrophy. The left ventricular systolic function is severely reduced with an estimated ejection fraction in th e range of 20-25%. There is global left ventricular dysfunction. RIGHT VENTRICLE The right ventricular systoilc function is moderately decreased. The right ventricle is moderately dilated. LEFT ATRIUM The left atrial size is [id number] dilated. RIGHT ATRIUM The right atrial size is [id number]-dd-rohtgunbjv dilated. ATRIAL SEPTUM No atrial level shunt is demonstrated by color flow Doppler interrogation. AORTA The aortic root and proximal ascending aorta are not well visualized. MITRAL VALVE Mild mitral valve regurgitation. AORTIC VALVE The aortic valve is not well visualized. TRICUSPID VALVE There is mild tricuspid valve regurgitation. The estimated pulmonary arterial pressure is 29.9 mmHg. PULMONARY VALVE The pulmonary valve is not well visualized. VESSELS The inferior vena cava is normal in size. PERICARDIUM A right sided pleural effusion is present. No pericardial effusion. Damon Salmon MD (Electronically Signed) Final Date:18 May 2018 15:04
[2018-05-18 16:10] LABS: Hemoglobin A1c 5.4 % (4.3-6.0)
[2018-05-18] MEDS: Azithromycin Inj 500 MG in Sodium Chlor 0.9% Inj 250 ML IV.SIG SCH (21:12)
[2018-05-18] MEDS: traZODone 50 MG Tablet PO SCH (21:17)
--- NOTE | 2018-05-19 00:40 | P.PNADD ---
Addendum to Inpatient Note Additional information: Patient seen on 05/18/18 @ approx 7:00 PM Full Consult Note dictated
--- NOTE | 2018-05-19 01:38 | MB ---
cc: Chin Edouard MD DATE: 05/18/2018 REASON FOR CONSULTATION: Patient with pancytopenia. HISTORY OF PRESENT ILLNESS: This is an 87-year-old male who has a past medical history of COPD, pulmonary fibrosis, high grade AV block, status post pacemaker placement, history of Vlales's esophagus, hypertension and dementia, who was brought to the emergency room from an assisted living facility with respiratory distress. He was found to be tachypneic and having irregular breathing. The patient was found to have elevated troponin levels. He was unable to answer questions on admission. The patient was admitted to the hospital for cardiac workup. The patient has a history significant for dementia. The patient was previously seen by hematology in October 2016. At that time, he was admitted to the hospital with a nondisplaced, impacted fracture of the proximal femur neck of the right side. He underwent a right hip closed reduction and percutaneous screw fixation at that time. Hematology was consulted because the patient had leukopenia with a white blood cell count of 3.2 and thrombocytopenia, with platelet count of 69,000. His white blood cell count at that time ranged between in the mid 2s to mid 3s. His ANC remained greater than 1000. There was no evidence of lymphadenopathy at that time. Review of peripheral smear did not reveal any dyserythropoiesis or myelodysplasia. He was also found to be anemic at that time with hemoglobin of 8.8. His MCV is elevated. At that time, the patient was found to be B12 deficient. He was started on daily B12 injections. He was also mildly iron deficient. He was recommended to followup outpatient. The patient did not followup in the oncology clinic subsequently. On this admission, the patient was found to have white blood cell count of 2.5, which has precipitously dropped to 1.7. His hemoglobin has fluctuated between 8.1 and 8.9. His MCV is elevated at 114.5 on admission and today it is 111.3. His platelet count has also fluctuated between 40,000 range to 80,000 range. His ANC on admission was 2300, which has now declined to 800. Oncology has been consulted to make further recommendations in this patient. The patient is currently awake, however, he appears to have significant dementia. The patient thinks that he is still in the [facility]. When asked what month this is, he stated that this is November. He stated that this is 2014. The patient has not had any fevers or chills. No nosebleeds or gum bleeds. He states that he is unable to stand up and he is unsteady on his feet. REVIEW OF SYSTEMS: It was difficult to obtain review of systems, but it was negative except as described in the HPI. PAST MEDICAL HISTORY: History of leukopenia, anemia, thrombocytopenia, BPH, GERD, gastroparesis, hypocalcemia, history of Valles's esophagus, COPD, history of heart block, hypertension, history of dementia. PAST SURGICAL HISTORY: History of inguinal hernia repair, permanent cardiac pacemaker placement, history of TURP. FAMILY HISTORY: Was unable to be reviewed due to the patient's significant dementia. SOCIAL HISTORY: He stated that he lives in an [facility]. He could not answer any other questions. MEDICATIONS: DuoNebs p.r.n., vitamin C 500 mg p.o. b.i.d., azithromycin 500 mL q. 24 hours, Bethanechol, carvedilol, cyanocobalamin, Robinul, Marinol, folic acid 1 mg p.o. daily, furosemide 20 mg daily, lactobacillus, memantine 10 mg p.o. at bedtime, multivitamin, Zofran p.r.n., Protonix p.r.n., potassium, simethicone p.r.n. ALLERGIES: NO KNOWN DRUG ALLERGIES. PHYSICAL EXAMINATION: VITAL SIGNS: Were stable, reviewed in the EMR. GENERAL: Elderly male who appears cachectic, weak and chronically ill-appearing. He has significant dementia. He is awake, but does not answer many questions. HEENT: Pupils are equal, round, reactive to light. EOMI. No thrush or lesions. NECK: Supple. No JVD. No bruits. No lymphadenopathy. CHEST: Clear to auscultation bilaterally. CARDIAC: S1, S2. Regular rate and rhythm. ABDOMEN: Soft, nontender, nondistended. Bowel sounds are present. EXTREMITIES: Without any edema, erythema, cyanosis. SKIN: Without any petechiae, lesions, or bruises. NEUROLOGIC: No focal deficits. PSYCHIATRIC: Mood and affect is appropriate. LABORATORY DATA: WBC 1.7, hemoglobin 8.3, platelet count is 55,000. ANC is 800. ASSESSMENT AND PLAN: This is an 87-year-old male who has significant dementia. He has a history of leukopenia, anemia and thrombocytopenia. He was brought to the emergency department with respiratory issues and confusion. He is currently undergoing cardiac workup. Hematology has been consulted to assess pancytopenia. 1. Leukopenia is chronic. He has a history of B12 deficiency. This may be related to the B12 deficiency. There is also a possibility of underlying primary bone disorder such as MDS. His ANC is around 800 at this time. I would recommend checking B12 and folate levels and replete as needed. I do not believe that a bone marrow biopsy or any additional workup to determine whether he has MDS will not change our management. This patient will require supportive care. If his ANC drops below 500, we will give him GCSF injections. He is not a candidate for any aggressive therapy. 2. Anemia. Again in the past, he was found to be B12 deficient. I would recommend obtaining anemia studies, check B12. This could be related to underlying MDS. 3. Chronic thrombocytopenia could be due to B12 deficiency versus chronic idiopathic thrombocytopenic purpura versus a primary bone marrow disorder. I would recommend supportive care in this elderly patient who has significant dementia. Aggressive workup including a bone marrow biopsy or workup for MDS is not indicated in this patient. I would recommend supportive care. 4. His Non-ST elevation myocardial infarction being treated by cardiology. 5. Respiratory distress and chronic obstructive pulmonary disease. He is on DuoNebs and receiving supplemental oxygen. 6. History of heart block, currently has a pacemaker in place. 7. Significant dementia. Thank you for allowing me to participate in the care of this patient. I will continue to follow this patient along. MD STANFORD Hirsch/BLANCA , 12:58 AM , 01:36 AM ROSIO
[2018-05-19 05:16] LABS: % Iron Saturation 18.8 % (20-50); Alanine Aminotransferase 21 U/L (12-78); Albumin 2.5 g/dL (3.4-5.0); Alkaline Phosphatase 49 U/L (45-117); Anion Gap 3 meq/L (5-15); Aspartate Aminotransferase 24 U/L (15-37); Blood Urea Nitrogen 19 mg/dL (7-18); Calcium 8.5 mg/dL (8.5-10.1); Carbon Dioxide 40.4 meq/L (21.0-32.0); Chloride 95 meq/L (98-107); Glomerular Filtration Rate Greater Than 89 mL/min (>89); Glucose,Random 89 mg/dL (74-106); Iron 49 mcg/dL (65-175); Magnesium 2.3 mg/dL (1.5-2.5); Phosphorus 2.9 mg/dL (2.5-4.9); Potassium 4.4 meq/L (3.5-5.1); Sodium 138 meq/L (136-145); Total Iron Binding Capacity 260 mcg/dL (250-450); Total Protein 5.4 g/dL (6.4-8.2)
[2018-05-19] MEDS ORDERED: Furosemide 20 MG Tablet PO SCH (09:00)
--- NOTE | 2018-05-19 09:09 | P.PNCA ---
<Shadeed,Steffi - Last Filed: 05/19/18 09:09> Subjective Interval history: Patient alert and sitting up in chair. 02 sats 83%, respiratory working to keep sats above 88%. Patient denies any chest pain. Physical Exam Vital signs: Vital Signs 05/18/18 10:00 05/18/18 11:00 05/18/18 12:00 Temperature 97.6 F Pulse Rate 82 84 76 Respiratory Rate 12 Blood Pressure 88/54 L Pulse Oximetry 100 05/18/18 13:00 05/18/18 14:00 05/18/18 15:00 Temperature 97.7 F Pulse Rate 78 76 76 Respiratory Rate 16 14 Blood Pressure 125/58 L Pulse Oximetry 94 L 05/18/18 16:00 05/18/18 16:01 05/18/18 17:00 Temperature Pulse Rate 78 62 88 Respiratory Rate 18 Blood Pressure Pulse Oximetry 96 05/18/18 18:00 05/18/18 19:00 05/18/18 20:00 Temperature 98.6 F Pulse Rate 80 75 82 Respiratory Rate 16 16 Blood Pressure 103/61 Pulse Oximetry 96 05/18/18 21:00 05/18/18 22:00 05/18/18 23:00 Temperature 98.5 F Pulse Rate 78 84 75 Respiratory Rate 16 Blood Pressure 114/66 Pulse Oximetry 98 05/19/18 00:00 05/19/18 00:08 05/19/18 01:00 Temperature Pulse Rate 80 56 L 80 Respiratory Rate 16 Blood Pressure Pulse Oximetry 98 05/19/18 02:00 05/19/18 03:00 05/19/18 04:00 Temperature 97.8 F Pulse Rate 84 83 79 Respiratory Rate 14 Blood Pressure 98/67 L Pulse Oximetry 99 05/19/18 05:00 05/19/18 06:00 05/19/18 08:39 Temperature Pulse Rate 81 79 90 Respiratory Rate 18 Blood Pressure Pulse Oximetry 05/19/18 08:49 Temperature Pulse Rate Respiratory Rate Blood Pressure Pulse Oximetry 93 L Intake & Output 05/18/18 05/19/18 05/19/18 18:59 06:59 18:59 Intake Total 840 / 840 490 / 490 Output Total 1175 / 1175 250 / 250 Balance -335 / -335 240 / 240 Weight 52.7 kg Intake: IV 250 / 250 Azithromycin Inj 500 MG In NS 250 / 250 Inj 250 ML @ 250 mls/hr IV.SIG Q24H MARIANNE Rx#:[id number] Oral 840 / 840 240 / 240 Output: Urine 1175 / 1175 250 / 250 Other: # Bowel Movements 0 - Constitutional no acute distress - Routine HEENT Exam Head: Present: normocephalic, atraumatic Eye: Present: PERRL, normal accommodation ENT: Present: mucous membranes moist - Routine Neck Exam Present: supple - Routine Respiratory Exam Present: stridor, wheezes, diminished air movement - Routine Cardiovascular Exam Comments: paced rhythm - Routine Abdominal Exam Present: soft - Routine Extremities Exam Present: amputation Comments: no edema - Routine Skin Exam Present: intact Comments: scattered bruises on extremities - Routine Neurological Exam Present: alert, normal speech - Detailed Neurological Exam: Coma Scale Eye Opening: Spontaneous Verbal Response: Confused Motor Response: Obey commands Cat Coma Scale Total: 14 - Routine Psychiatric Exam Present: normal affect, normal thought process Assessment and Plan - Plan Assessment Non ST elevation AK Anemia, ? CLL COPD History of AV block, status post pacemaker placement HTN CHF Plan Cachetic ill appearing male. He is not a good candidate for heart cath. Family does not want any invasive procedures. Will manage medically. On Coreg. Denies any chest pain. Will keep off ASA due to low platelets. Hematology has evaluated patient. Scheduled nebulizer treatments. Pacemaker in place, paced rhythm. BP runs low. No signs of fluid overload on exam. Switched back to PO lasix. Patient is stable from a cardiac standpoint. Poor half-way prognosis due to frailty. The patient was seen and evaluated by Dr. Barajas who completed face to face encounter and physical exam and participated in care, management and decision making. Discussed Condition With: Nurse and respiratory therapist <Alfie Barajas - Last Filed: 05/19/18 14:42> Physical Exam Vital signs: Vital Signs 05/18/18 15:00 05/18/18 16:00 05/18/18 16:01 Temperature 97.7 F Pulse Rate 76 78 62 Respiratory Rate 14 18 Blood Pressure 125/58 L Pulse Oximetry 94 L 96 Pulse Oximetry [Exertion with Oxygen] Pulse Oximetry [Resting on Room Air] Pulse Oximetry [Resting with Oxygen] 05/18/18 17:00 05/18/18 18:00 05/18/18 19:00 Temperature 98.6 F Pulse Rate 88 80 75 Respiratory Rate 16 Blood Pressure 103/61 Pulse Oximetry 96 Pulse Oximetry [Exertion with Oxygen] Pulse Oximetry [Resting on Room Air] Pulse Oximetry [Resting with Oxygen] 05/18/18 20:00 05/18/18 21:00 05/18/18 22:00 Temperature Pulse Rate 82 78 84 Respiratory Rate 16 Blood Pressure Pulse Oximetry Pulse Oximetry [Exertion with Oxygen] Pulse Oximetry [Resting on Room Air] Pulse Oximetry [Resting with Oxygen] 05/18/18 23:00 05/19/18 00:00 05/19/18 00:08 Temperature 98.5 F Pulse Rate 75 80 56 L Respiratory Rate 16 16 Blood Pressure 114/66 Pulse Oximetry 98 98 Pulse Oximetry [Exertion with Oxygen] Pulse Oximetry [Resting on Room Air] Pulse Oximetry [Resting with Oxygen] 05/19/18 01:00 05/19/18 02:00 05/19/18 03:00 Temperature 97.8 F Pulse Rate 80 84 83 Respiratory Rate 14 Blood Pressure 98/67 L Pulse Oximetry 99 Pulse Oximetry [Exertion with Oxygen] Pulse Oximetry [Resting on Room Air] Pulse Oximetry [Resting with Oxygen] 05/19/18 04:00 05/19/18 05:00 05/19/18 06:00 Temperature Pulse Rate 79 81 79 Respiratory Rate Blood Pressure Pulse Oximetry Pulse Oximetry [Exertion with Oxygen] Pulse Oximetry [Resting on Room Air] Pulse Oximetry [Resting with Oxygen] 05/19/18 07:00 05/19/18 08:39 05/19/18 08:49 Temperature 98.2 F Pulse Rate 88 90 Respiratory Rate 16 18 Blood Pressure 101/56 L Pulse Oximetry 90 L 93 L Pulse Oximetry [Exertion with Oxygen] Pulse Oximetry [Resting on Room Air] Pulse Oximetry [Resting with Oxygen] 05/19/18 11:16 05/19/18 11:28 05/19/18 11:30 Temperature Pulse Rate 91 H Respiratory Rate 18 Blood Pressure Pulse Oximetry 98 Pulse Oximetry [Exertion with Oxygen] 94 L Pulse Oximetry [Resting on Room Air] 87 L Pulse Oximetry [Resting with Oxygen] 98 Intake & Output 05/18/18 05/19/18 05/19/18 18:59 06:59 18:59 Intake Total 840 / 840 490 / 490 Output Total 1175 / 1175 250 / 250 Balance -335 / -335 240 / 240 Weight 52.7 kg Intake: IV 250 / 250 Azithromycin Inj 500 MG In NS 250 / 250 Inj 250 ML @ 250 mls/hr IV.SIG Q24H MARIANNE Rx#:[id number] Oral 840 / 840 240 / 240 Output: Urine 1175 / 1175 250 / 250 Other: # Bowel Movements 0 Assessment and Plan - Plan Medical management pt with poor prognoses
[2018-05-19 09:20] LABS: Baso % (Auto) 0.8 % (0.0-2.0); Eos % (Auto) 2.1 % (0.0-4.0); Hematocrit 28.8 % (39.0-51.0); Hemoglobin 9.5 gm/dL (13.0-17.0); Lymph # (Auto) 0.8 th/mm3 (1.0-4.8); Lymph % (Auto) 39.1 % (9.0-44.0); Mean Corpuscular Hemoglobin 36.5 pg (27.0-34.0); Mean Corpuscular Volume 110.7 fL (80.0-100.0); Mean Platelet Volume 8.4 fL (7.0-11.0); Mono # (Auto) 0.3 th/mm3 (0.0-0.9); Mono % (Auto) 12.5 % (0.0-8.0); Neut % (Auto) 45.5 % (16.0-70.0); Platelet Count 58 th/mm3 (150-450); Red Cell Distribution Width 15.1 % (11.6-17.2); White Blood Count 2.2 th/mm3 (4.0-11.0)
[2018-05-19] MEDS ORDERED: Ferrous Sulfate 325 MG Tablet PO SCH (09:45)
[2018-05-19] MEDS: Simethicone 80 MG Chew Tablet PO SCH (10:19)
[2018-05-19] MEDS: DRONABINOL 2.5 MG CAPSULE PO SCH (10:21)
[2018-05-19] MEDS: Lactobacillus Acidophilus/L. Spores Tablet PO SCH (10:21)
[2018-05-19] MEDS: Ascorbic Acid 500 MG Tablet PO SCH (10:21)
[2018-05-19] MEDS: Folic Acid 1 MG Tablet PO SCH (10:22)
[2018-05-19] MEDS: Pantoprazole Sodium 20 MG DR Tablet PO SCH (10:30)
--- NOTE | 2018-05-19 10:34 | P.PNIM ---
Subjective Interval history: 87-year-old male with a past medical history significant for COPD, heart block status post pacemaker, dementia, Valles's esophagus and hypertension presents to the emergency department from his assisted living facility for the evaluation of respiratory distress. The patient was evaluated in his senior care and was found to be tachypneic and breathing irregularly. Evaluation in the emergency department revealed a troponin of 2.35. The patient is unable to answer my questions but will open his eyes to sternal rub. 7-9 MUCH MORE ALERT TODAY KNOWS AT [place] THOUGHT CARA YBARRA WAS PRESIDENT [facility] RN AND PT AND FAMILY AM LABS PT AND OT CONSULT HEMATOLOGY 7-10 CONSULT HEMATOLOGY PENDING SEEN BY CARDIOLOGY FAMILY NOT WANTING ANY CARDIAC PROCEDURES AT THIS TIME [facility] PT PCP IN SNF DR REDMOND YESTERDAY AM LABS CONTINUE PT AND OT KNOWS [place] AND ROSIE MCDONALD TODAY MUCH MORE ALERT 7-11 CAN DC BACK TO SNF CAN FOLLOW UP WITH CARDIOLOGY AN OUTPT CAN FOLLOW UP WITH ONCOLOGY AN OUTP WALK TEST TODAY WILL PROBABLY NEED TO CONTINUE ON OXYGEN 3 L Physical Exam Vital signs: Vital Signs 05/18/18 11:00 05/18/18 12:00 05/18/18 13:00 Temperature 97.6 F Pulse Rate 84 76 78 Respiratory Rate 12 16 Blood Pressure 88/54 L Pulse Oximetry 100 05/18/18 14:00 05/18/18 15:00 05/18/18 16:00 Temperature 97.7 F Pulse Rate 76 76 78 Respiratory Rate 14 Blood Pressure 125/58 L Pulse Oximetry 94 L 05/18/18 16:01 05/18/18 17:00 05/18/18 18:00 Temperature Pulse Rate 62 88 80 Respiratory Rate 18 Blood Pressure Pulse Oximetry 96 05/18/18 19:00 05/18/18 20:00 05/18/18 21:00 Temperature 98.6 F Pulse Rate 75 82 78 Respiratory Rate 16 16 Blood Pressure 103/61 Pulse Oximetry 96 05/18/18 22:00 05/18/18 23:00 05/19/18 00:00 Temperature 98.5 F Pulse Rate 84 75 80 Respiratory Rate 16 Blood Pressure 114/66 Pulse Oximetry 98 05/19/18 00:08 05/19/18 01:00 05/19/18 02:00 Temperature Pulse Rate 56 L 80 84 Respiratory Rate 16 Blood Pressure Pulse Oximetry 98 05/19/18 03:00 05/19/18 04:00 05/19/18 05:00 Temperature 97.8 F Pulse Rate 83 79 81 Respiratory Rate 14 Blood Pressure 98/67 L Pulse Oximetry 99 05/19/18 06:00 05/19/18 08:39 05/19/18 08:49 Temperature Pulse Rate 79 90 Respiratory Rate 18 Blood Pressure Pulse Oximetry 93 L Intake & Output 05/18/18 05/19/18 05/19/18 18:59 06:59 18:59 Intake Total 840 / 840 490 / 490 Output Total 1175 / 1175 250 / 250 Balance -335 / -335 240 / 240 Weight 52.7 kg Intake: IV 250 / 250 Azithromycin Inj 500 MG In NS 250 / 250 Inj 250 ML @ 250 mls/hr IV.SIG Q24H MARIANNE Rx#:[id number] Oral 840 / 840 240 / 240 Output: Urine 1175 / 1175 250 / 250 Other: # Bowel Movements 0 Narrative: GENERAL: Awake alert and oriented 3 talkative and cooperative SKIN: Warm and dry. HEAD: Atraumatic. Normocephalic. EYES: Pupils equal and round. No scleral icterus. No injection or drainage. ENT: No nasal bleeding or discharge. Mucous membranes pink and moist. Tongue is midline NECK: Trachea midline. No JVD. Supple CARDIOVASCULAR: IRRegular rate and rhythm. S1-S2 no S3 or S4 RESPIRATORY: No accessory muscle use. Clear to auscultation. Breath sounds equal bilaterally. GASTROINTESTINAL: Abdomen soft, non-tender, nondistended. Hepatic and splenic margins not palpable. MUSCULOSKELETAL: Extremities without clubbing, cyanosis, or edema. No obvious deformities. Right TMA NEUROLOGICAL: Awake and alert. No obvious cranial nerve deficits. Motor grossly within normal limits. 4 out of 5 muscle strength in the arms and legs. Normal speech. PSYCHIATRIC: Appropriate mood and affect; insight and judgment ABnormal. Results - Labs CBC & Chem 7: 05/19/18 08:51 05/19/18 03:28 Laboratory Results - last 24 hr 05/18/18 05/19/18 05/19/18 06:47 03:28 08:51 WBC RBC Hgb Hct MCV MCH MCHC RDW Plt Count MPV Prelim Diff (Auto) Neut % (Auto) Lymph % (Auto) [place] % (Auto) Eos % (Auto) Baso % (Auto) Neut # (Auto) Lymph # (Auto) [place] # (Auto) Eos # (Auto) Baso # (Auto) Differential Comment Sodium 138 Potassium 4.4 Chloride 95 L Carbon Dioxide 40.4 H Anion Gap 3 L BUN 19 H Creatinine 0.54 L Estimated GFR Greater than 89 Random Glucose 89 Hemoglobin A1c 5.4 Calcium 8.5 Phosphorus 2.9 Magnesium 2.3 Iron 49 L TIBC 260 % Saturation 18.8 L Total Bilirubin 0.3 AST 24 ALT 21 Alkaline Phosphatase 49 B-Natriuretic Peptide 1156 H Total Protein 5.4 L Albumin 2.5 L Vitamin B12 Greater than 2000 H 05/19/18 08:51 WBC 2.2 L RBC 2.60 L Hgb 9.5 L Hct 28.8 L MCV 110.7 H MCH 36.5 H MCHC 33.0 RDW 15.1 Plt Count 58 L MPV 8.4 Prelim Diff (Auto) Slide review pending Neut % (Auto) 45.5 Lymph % (Auto) 39.1 [place] % (Auto) 12.5 H Eos % (Auto) 2.1 Baso % (Auto) 0.8 Neut # (Auto) 1.0 L Lymph # (Auto) 0.8 L [place] # (Auto) 0.3 Eos # (Auto) 0.0 Baso # (Auto) 0.0 Differential Comment . Sodium Potassium Chloride Carbon Dioxide Anion Gap BUN Creatinine Estimated GFR Random Glucose Hemoglobin A1c Calcium Phosphorus Magnesium Iron TIBC % Saturation Total Bilirubin AST ALT Alkaline Phosphatase B-Natriuretic Peptide Total Protein Albumin Vitamin B12 Microbiology 05/16/18 17:15 Blood - Peripheral Aerobic Blood Culture - Preliminary No growth in 2 days 05/16/18 17:15 Blood - Peripheral Anaerobic Blood Culture - Preliminary No growth in 2 days 05/16/18 17:10 Blood - Peripheral Aerobic Blood Culture - Preliminary No growth in 2 days 05/16/18 17:10 Blood - Peripheral Anaerobic Blood Culture - Preliminary No growth in 2 days - Imaging ITS Impressions Chest X-Ray 05/16/18 16:57 CONCLUSION: Basilar airspace disease and small pleural effusions are new findings since April 21. Stable apical scarring and pleural thickening. - Procedures NONE Assessment and Plan - Plan 1. NSTEMI Initial troponin 2.35 EKG shows paced rhythm without ST segment elevations or depressions, personally reviewed Heparin drip Cardiology consulted, appreciate assistance Serial troponins/EKGs NO INTERVENTIONS PER CARDIO 2. Respiratory distress/COPD/CO2 RETENTION Chest x-ray showed basilar airspace disease with small pleural effusions that were new findings since April 21 Continue home Lasix Patient afebrile without white count, not likely infectious in etiology Duo nebs Supplemental oxygen as needed Continue to monitor BREATHING BETTER ON LESS OXYGEN 3. Heart block Patient with pacemaker 4. Hypertension/dementia Continue home medications 5. ANEMIA/LEUKOPENIA CONSULT HEMATOLOGY POSSIBLE myelodysplastic syndrome GAIT INSTABILITY CONSULT PT AND OT DC BACK TO SNF CONTINUE ON 3 LITERS BY NASAL CANNULA FEN N.p.o. Electrolytes: Monitor and replete as needed Heparin drip Code Status: DNR Discussed Condition With: RN AND PT AND CM Discharge Planning: Pending clearance by all
--- NOTE | 2018-05-19 10:45 | P.DS ---
Date of admission: 05/16/18 19:18 Primary care physician: UNKNOWN Attending physician on discharge: James Cid Anticipated date of discharge: 05/19/18 Brief History from admission: 87-year-old male with a past medical history significant for COPD, heart block status post pacemaker, dementia, Valles's esophagus and hypertension presents to the emergency department from his assisted living facility for the evaluation of respiratory distress. The patient was evaluated in his retirement and was found to be tachypneic and breathing irregularly. Evaluation in the emergency department revealed a troponin of 2.35. The patient is unable to answer my questions but will open his eyes to sternal rub. DS: Diagnosis - Discharge Diagnosis (1) Dementia Status: Chronic (2) Iron deficiency anemia Status: Acute (3) Hypertension Status: Chronic (4) Hyperlipidemia Status: Chronic (5) COPD (chronic obstructive pulmonary disease) Status: Chronic (6) Non-ST elevation (NSTEMI) myocardial infarction Status: Acute DS: Medications - Discharge Medications Prescriptions: azithromycin [Zithromax] 500 mg PO DAILY #5 tab prednisolone [Millipred DP] 1 pack PO PER PKG DIR #1 each DS: Summary Hospital Course: 87-year-old male with a past medical history significant for COPD, heart block status post pacemaker, dementia, Valles's esophagus and hypertension presents to the emergency department from his assisted living facility for the evaluation of respiratory distress. The patient was evaluated in his retirement and was found to be tachypneic and breathing irregularly. Evaluation in the emergency department revealed a troponin of 2.35. The patient is unable to answer my questions but will open his eyes to sternal rub. 7-9 MUCH MORE ALERT TODAY KNOWS AT [place] THOUGHT CARA YBARRA WAS PRESIDENT [facility] RN AND PT AND FAMILY AM LABS PT AND OT CONSULT HEMATOLOGY 7-10 CONSULT HEMATOLOGY PENDING SEEN BY CARDIOLOGY FAMILY NOT WANTING ANY CARDIAC PROCEDURES AT THIS TIME [facility] PT PCP IN SNF DR REDMOND YESTERDAY AM LABS CONTINUE PT AND OT KNOWS [place] AND [facility] MCDONALD TODAY MUCH MORE ALERT 7-11 CAN DC BACK TO SNF CAN FOLLOW UP WITH CARDIOLOGY AN OUTPT CAN FOLLOW UP WITH ONCOLOGY AN OUTP WALK TEST TODAY WILL PROBABLY NEED TO CONTINUE ON OXYGEN 3 L PREDNISONE PACK - Time Spent with Patient Total time spent providing and/or coordinating discharge services: Greater than 30 minutes - Quality: VTE Deep Vein Thrombosis/Pulmonary Embolism Present on Admission: No Exam Vital signs: Vital Signs 05/18/18 11:00 05/18/18 12:00 05/18/18 13:00 Temperature 97.6 F Pulse Rate 84 76 78 Respiratory Rate 12 16 Blood Pressure 88/54 L Pulse Oximetry 100 05/18/18 14:00 05/18/18 15:00 05/18/18 16:00 Temperature 97.7 F Pulse Rate 76 76 78 Respiratory Rate 14 Blood Pressure 125/58 L Pulse Oximetry 94 L 05/18/18 16:01 05/18/18 17:00 05/18/18 18:00 Temperature Pulse Rate 62 88 80 Respiratory Rate 18 Blood Pressure Pulse Oximetry 96 05/18/18 19:00 05/18/18 20:00 05/18/18 21:00 Temperature 98.6 F Pulse Rate 75 82 78 Respiratory Rate 16 16 Blood Pressure 103/61 Pulse Oximetry 96 05/18/18 22:00 05/18/18 23:00 05/19/18 00:00 Temperature 98.5 F Pulse Rate 84 75 80 Respiratory Rate 16 Blood Pressure 114/66 Pulse Oximetry 98 05/19/18 00:08 05/19/18 01:00 05/19/18 02:00 Temperature Pulse Rate 56 L 80 84 Respiratory Rate 16 Blood Pressure Pulse Oximetry 98 05/19/18 03:00 05/19/18 04:00 05/19/18 05:00 Temperature 97.8 F Pulse Rate 83 79 81 Respiratory Rate 14 Blood Pressure 98/67 L Pulse Oximetry 99 05/19/18 06:00 05/19/18 08:39 05/19/18 08:49 Temperature Pulse Rate 79 90 Respiratory Rate 18 Blood Pressure Pulse Oximetry 93 L Intake & Output 05/18/18 05/19/18 05/19/18 18:59 06:59 18:59 Intake Total 840 / 840 490 / 490 Output Total 1175 / 1175 250 / 250 Balance -335 / -335 240 / 240 Weight 52.7 kg Intake: IV 250 / 250 Azithromycin Inj 500 MG In NS 250 / 250 Inj 250 ML @ 250 mls/hr IV.SIG Q24H [facility] Rx#:[id number] Oral 840 / 840 240 / 240 Output: Urine 1175 / 1175 250 / 250 Other: # Bowel Movements 0 Narrative: GENERAL: Awake alert and oriented 3 talkative and cooperative SKIN: Warm and dry. HEAD: Atraumatic. Normocephalic. EYES: Pupils equal and round. No scleral icterus. No injection or drainage. ENT: No nasal bleeding or discharge. Mucous membranes pink and moist. NECK: Trachea midline. No JVD. CARDIOVASCULAR: Regular rate and rhythm. S1-S2 no S3 or S4 RESPIRATORY: No accessory muscle use. Few scattered rhonchi. Breath sounds equal bilaterally. GASTROINTESTINAL: Abdomen soft, non-tender, nondistended. Hepatic and splenic margins not palpable. MUSCULOSKELETAL: Extremities without clubbing, cyanosis, or edema. No obvious deformities. NEUROLOGICAL: Awake and alert. No obvious cranial nerve deficits. Motor grossly within normal limits. Five out of 5 muscle strength in the arms and legs. Normal speech. PSYCHIATRIC: Appropriate mood and affect; insight and judgment normal. Results Procedures completed during hospitalization: NONE Completed studies during hospitalization: Laboratory Results WBC 2.2 th/mm3 (4.0-11.0) L 05/19/18 08:51 RBC 2.60 mil/mm3 (4.50-5.90) L 05/19/18 08:51 Hgb 9.5 gm/dL (13.0-17.0) L 05/19/18 08:51 Hct 28.8 % (39.0-51.0) L 05/19/18 08:51 MCV 110.7 fL (80.0-100.0) H 05/19/18 08:51 MCH 36.5 pg (27.0-34.0) H 05/19/18 08:51 MCHC 33.0 % (32.0-36.0) 05/19/18 08:51 RDW 15.1 % (11.6-17.2) 05/19/18 08:51 Plt Count 58 th/mm3 (150-450) L 05/19/18 08:51 MPV 8.4 fL (7.0-11.0) 05/19/18 08:51 Prelim Diff (Auto) Slide review pending 05/19/18 08:51 Neut % (Auto) 45.5 % (16.0-70.0) 05/19/18 08:51 Lymph % (Auto) 39.1 % (9.0-44.0) 05/19/18 08:51 [place] % (Auto) 12.5 % (0.0-8.0) H 05/19/18 08:51 Eos % (Auto) 2.1 % (0.0-4.0) 05/19/18 08:51 Baso % (Auto) 0.8 % (0.0-2.0) 05/19/18 08:51 Neut # (Auto) 1.0 th/mm3 (1.8-7.7) L 05/19/18 08:51 Lymph # (Auto) 0.8 th/mm3 (1.0-4.8) L 05/19/18 08:51 [place] # (Auto) 0.3 th/mm3 (0.0-0.9) 05/19/18 08:51 Eos # (Auto) 0.0 th/mm3 (0.0-0.4) 05/19/18 08:51 Baso # (Auto) 0.0 th/mm3 (0.0-0.2) 05/19/18 08:51 WBC Differential Manual diff final 05/18/18 06:47 Diff Scan Auto diff confirmed 05/17/18 05:28 Seg Neuts % (Manual) 46 % (16-70) 05/18/18 06:47 Lymphocytes % (Manual) 46 % (9-44) H 05/18/18 06:47 Monocytes % (Manual) 6 % (0-8) 05/18/18 06:47 Eosinophils % (Manual) 2 % (0-4) 05/18/18 06:47 Abs Neuts (Manual) 0.8 th/mm3 (1.8-7.7) L 05/18/18 06:47 Differential Comment . 05/19/18 08:51 Platelet Estimate Low (Normal) L 05/18/18 06:47 Platelet Morphology Normal (Normal) 05/18/18 06:47 Keratocytes 1+ (None) H 05/18/18 06:47 APTT 29.3 sec (24.3-30.1) 05/17/18 15:51 Puncture Site Right radial 05/17/18 10:30 Patient Temperature 98.6 05/17/18 10:30 O2 Saturation 96 % (90-100) 05/17/18 10:30 ABG pH 7.42 (7.380-7.420) 05/17/18 10:30 ABG pCO2 70 mmHg (38-42) H* 05/17/18 10:30 ABG pO2 109 mmHG (61-120) 05/17/18 10:30 ABG HCO3 44 mmol/L (22-26) H 05/17/18 10:30 ABG O2 Content 12.1 Vol % (12.0-20.0) 05/17/18 10:30 ABG Base Excess 18.7 mmol/L (-2-2) H 05/17/18 10:30 ABG Methemoglobin 1.0 % (0-2) 05/17/18 10:30 Daryl Test Present 05/17/18 10:30 Hemoglobin 8.9 G/DL (12.0-16.0) L 05/17/18 10:30 Carboxyhemoglobin 1.3 % (0-4) 05/17/18 10:30 O2 Delivery Device Sm 05/17/18 10:30 Liter Flow 6.00 L/M 05/17/18 10:30 Inspired O2 21 % 05/17/18 10:30 Critical Value No 05/17/18 10:30 Sodium 138 meq/L (136-145) 05/19/18 03:28 Potassium 4.4 meq/L (3.5-5.1) 05/19/18 03:28 Chloride 95 meq/L (98-107) L 05/19/18 03:28 Carbon Dioxide 40.4 meq/L (21.0-32.0) H 05/19/18 03:28 Anion Gap 3 meq/L (5-15) L 05/19/18 03:28 BUN 19 mg/dL (7-18) H 05/19/18 03:28 Creatinine 0.54 mg/dL (0.60-1.30) L 05/19/18 03:28 Estimated GFR Greater than 89 mL/min (>89) 05/19/18 03:28 Random Glucose 89 mg/dL (74-106) 05/19/18 03:28 Hemoglobin A1c 5.4 % (4.3-6.0) 05/18/18 06:47 Lactic Acid 0.8 mmol/L (0.4-2.0) 05/16/18 17:10 Calcium 8.5 mg/dL (8.5-10.1) 05/19/18 03:28 Phosphorus 2.9 mg/dL (2.5-4.9) 05/19/18 03:28 Magnesium 2.3 mg/dL (1.5-2.5) 05/19/18 03:28 Iron 49 mcg/dL (65-175) L 05/19/18 03:28 TIBC 260 mcg/dL (250-450) 05/19/18 03:28 % Saturation 18.8 % (20-50) L 05/19/18 03:28 Total Bilirubin 0.3 mg/dL (0.2-1.0) 05/19/18 03:28 AST 24 U/L (15-37) 05/19/18 03:28 ALT 21 U/L (12-78) 05/19/18 03:28 Alkaline Phosphatase 49 U/L (45-117) 05/19/18 03:28 Total Creatine Kinase 78 U/L (39-308) 05/17/18 05:28 Troponin I 2.50 ng/mL (0.02-0.05) H* 05/17/18 05:28 B-Natriuretic Peptide 1156 pg/mL (0-100) H 05/19/18 08:51 Total Protein 5.4 g/dL (6.4-8.2) L 05/19/18 03:28 Albumin 2.5 g/dL (3.4-5.0) L 05/19/18 03:28 Triglycerides 81 mg/dL (42-150) 05/18/18 06:47 Cholesterol 143 mg/dL (120-200) 05/18/18 06:47 LDL Cholesterol, Calc 70 mg/dL (0-99) 05/18/18 06:47 HDL Cholesterol 57.0 mg/dL (40.0-60.0) 05/18/18 06:47 Cholesterol/HDL Ratio 2.50 Ratio 05/18/18 06:47 Vitamin B12 Greater than 2000 pg/mL (193-986) H 05/19/18 03:28 TSH 2.030 uIU/mL (0.358-3.740) 05/18/18 06:47 Free T4 1.13 ng/dL (0.76-1.46) 05/18/18 06:47 Impressions Chest X-Ray 05/16/18 16:57 CONCLUSION: Basilar airspace disease and small pleural effusions are new findings since April 21. Stable apical scarring and pleural thickening. Labs on day of discharge: Labs from last 24 hours 05/19/18 05/19/18 05/19/18 08:51 08:51 03:28 WBC 2.2 L RBC 2.60 L Hgb 9.5 L Hct 28.8 L MCV 110.7 H MCH 36.5 H MCHC 33.0 RDW 15.1 Plt Count 58 L MPV 8.4 Prelim Diff (Auto) Slide review pending Neut % (Auto) 45.5 Lymph % (Auto) 39.1 [place] % (Auto) 12.5 H Eos % (Auto) 2.1 Baso % (Auto) 0.8 Neut # (Auto) 1.0 L Lymph # (Auto) 0.8 L [place] # (Auto) 0.3 Eos # (Auto) 0.0 Baso # (Auto) 0.0 WBC Differential Pending Differential Comment . Sodium Potassium Chloride Carbon Dioxide Anion Gap BUN Creatinine Estimated GFR Random Glucose Hemoglobin A1c Calcium Phosphorus Magnesium Iron TIBC % Saturation Total Bilirubin AST ALT Alkaline Phosphatase B-Natriuretic Peptide 1156 H Total Protein Albumin Vitamin B12 RBC Folate Pending 05/19/18 05/18/18 03:28 06:47 WBC RBC Hgb Hct MCV MCH MCHC RDW Plt Count MPV Prelim Diff (Auto) Neut % (Auto) Lymph % (Auto) [place] % (Auto) Eos % (Auto) Baso % (Auto) Neut # (Auto) Lymph # (Auto) [place] # (Auto) Eos # (Auto) Baso # (Auto) WBC Differential Differential Comment Sodium 138 Potassium 4.4 Chloride 95 L Carbon Dioxide 40.4 H Anion Gap 3 L BUN 19 H Creatinine 0.54 L Estimated GFR Greater than 89 Random Glucose 89 Hemoglobin A1c 5.4 Calcium 8.5 Phosphorus 2.9 Magnesium 2.3 Iron 49 L TIBC 260 % Saturation 18.8 L Total Bilirubin 0.3 AST 24 ALT 21 Alkaline Phosphatase 49 B-Natriuretic Peptide Total Protein 5.4 L Albumin 2.5 L Vitamin B12 Greater than 2000 H RBC Folate Preliminary micro results at discharge 05/16/18 17:15 Aerobic Blood Culture - Preliminary Blood - Peripheral No growth in 2 days Anaerobic Blood Culture - Preliminary No growth in 2 days 05/16/18 17:10 Aerobic Blood Culture - Preliminary Blood - Peripheral No growth in 2 days Anaerobic Blood Culture - Preliminary No growth in 2 days - Impressions ITS Impressions Chest X-Ray 05/16/18 16:57 CONCLUSION: Basilar airspace disease and small pleural effusions are new findings since April 21. Stable apical scarring and pleural thickening. Discharge Plan - Discharge Disposition Patient Disposition: 03 Discharge to SNF - Discharge Condition Condition: Good - Discharge Order Discharge Orders: Discharge Order (Routine); Ordered 05/19/18 Ordered By: James Cid - Discharge Details Anticipated Discharge Date: 05/19/18 - Physicians Team Primary Care Provider: UNKNOWN, Attending Provider: James Cid Other Providers: Alfie Barajas MD ; Chin Edouard MD
== END 2018-05-19 14:26 ==
LOC: NEPC 16:32 → NEDA 19:18 → HCPC 05-17 04:38
PROVIDERS: ADMIT Hospitalist; ATTEND Hospitalist

== ENCOUNTER 2018-07-09 17:18 | Observation (INO) ==
--- NOTE | 2018-07-09 17:31 | ED ---
HPI General Chief Complaint: Altered Mental Status Stated Complaint: AMS Time Seen by Provider: 07/09/18 17:25 Source: patient, EMS, RN notes reviewed and old records reviewed Mode of arrival: EMS Limitations: other (dementia) History of Present Illness HPI narrative: 88 y/o male presents with an episode where he was hypotensive, hypoxic and unresponsive. Patient is now awake and back to his baseline and denies complaints other than generalized weakness. He cannot give history of prior episode and has underlying dementia. History is obtained from long term record and EMS MD complaint: altered mental status Onset (ago): hour(s) Related Data Home Medications Medication Instructions Recorded Confirmed zinc sulfate 325 mg PO BID 05/16/18 07/22/18 acetaminophen [Tylenol] 650 mg PO Q6H PRN 07/09/18 07/22/18 bethanechol chloride 25 mg PO QID 07/09/18 07/22/18 bisacodyl [Dulcolax (bisacodyl)] 10 mg DC DAILY PRN 07/09/18 07/22/18 bisacodyl [Dulcolax (bisacodyl)] 15 mg PO DAILY 07/09/18 07/22/18 calcium carbonate [Tums] 200 mg PO Q12HR 07/09/18 07/22/18 carvedilol [Coreg] 3.125 mg PO BID 07/09/18 07/22/18 cyanocobalamin (vitamin B-12) 1,000 mcg IM QWEEK 07/09/18 07/22/18 [Vitamin B-12] cyanocobalamin (vitamin B-12) 2,000 mcg PO DAILY 07/09/18 07/22/18 [Vitamin B-12] darbepoetin ena in polysorbat 200 mcg SUB-Q QWEEK 07/09/18 07/22/18 [Aranesp (in polysorbate)] dronabinol [Marinol] 2.5 mg PO DAILY 07/09/18 07/22/18 ferrous sulfate 325 mg PO BID 07/09/18 07/22/18 fluticasone-vilanterol [Breo 1 inh INHALATION DAILY 07/09/18 07/22/18 Ellipta] folic acid 1 mg PO DAILY 07/09/18 07/22/18 furosemide [Lasix] 20 mg PO DAILY 07/09/18 07/22/18 guaifenesin [Mucinex] 1,200 mg PO Q12H 07/09/18 07/22/18 lactulose 2 g PO DAILY 07/09/18 07/22/18 lidocaine [Lidoderm] 1 patch TOPICAL DAILY 07/09/18 07/22/18 magnesium hydroxide [Milk of 30 ml PO DAILY PRN 07/09/18 07/22/18 Magnesia] memantine [Namenda] 10 mg PO HS 07/09/18 07/22/18 midodrine 2.5 mg PO DAILY 07/09/18 07/22/18 mirtazapine 15 mg PO HS 07/09/18 07/22/18 multivitamin 1 tab PO DAILY 07/09/18 07/22/18 nitroglycerin [Nitrostat] 0.4 mg SUBLINGUAL Q5-15M PRN 07/09/18 07/22/18 omeprazole 20 mg PO BIDAC 07/09/18 07/22/18 ondansetron HCl [Zofran] 4 mg PO TID 07/09/18 07/22/18 potassium chloride 20 meq PO DAILY 07/09/18 07/22/18 simethicone 125 mg PO TID PRN 07/09/18 07/22/18 tramadol 25 mg PO Q8HR PRN 07/09/18 07/22/18 Previous Rx's Medication Instructions Recorded levofloxacin [Levaquin] 750 mg PO DAILY #6 tab 07/11/18 prednisone 20 mg PO BID #10 tab 07/11/18 prednisone 15 mg PO DAILY #0 tab 07/12/18 Allergies Allergy/AdvReac Type Severity Reaction Status Date / Time No Known Allergies Allergy Verified 07/22/18 11:11 Review of Systems ROS: all other systems reviewed are negative PMFSH History History 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 Medical History Medical History Anemia (Acute) Anorexia (Acute) BPH (benign prostatic hyperplasia) (Acute) Barretts esophagus (Acute) COPD (chronic obstructive pulmonary disease) (Acute) Constipation (Acute) GERD (gastroesophageal reflux disease) (Acute) Gastroparesis (Acute) Heart block (Acute) Hypertension (Acute) Hypocalcemia (Acute) Hyponatremia (Acute) Pancytopenia (Acute) Pneumonia (Acute) Urinary retention (Acute) Surgical History Surgical History History of inguinal hernia repair (Acute) History of permanent cardiac pacemaker placement (Acute) History of transurethral resection of prostate (Acute) Social History Social History Substance History: No History of Abuse Smoking Status: Unknown if ever smoked How Often Do You Have a Drink Containing Alcohol: Never Exam Narrative Exam Narrative: GENERAL: 88 y/o male in no apparent distress SKIN: Focused skin assessment warm/dry. HEAD: Atraumatic. Normocephalic. EYES: Pupils equal and round. No scleral icterus. No injection or drainage. ENT: No nasal bleeding or discharge. Mucous membranes pink and moist. NECK: Trachea midline. No JVD. CARDIOVASCULAR: Regular rate and rhythm. RESPIRATORY: No accessory muscle use. Clear to auscultation. Breath sounds equal bilaterally. GASTROINTESTINAL: Abdomen soft, non-tender, nondistended MUSCULOSKELETAL: No obvious deformities. No clubbing. No cyanosis. NEUROLOGICAL: Awake. Motor grossly within normal limits. Normal speech. Course Reevaluation(s) Reevaluation #1: Patient signed over to Dr. Fernandez at the end of my shift, please see his documentation for further details Reevaluation #2: pt signed out to me and I reviewed all labs and admit to [facility] and COPD AMS possible encephalopathy need further eval admit Initial Documented Vital Signs Temperature 98.4 F 07/09/18 17:20 Pulse Rate 76 07/09/18 17:20 Respiratory Rate 17 07/09/18 17:20 Blood Pressure 114/60 07/09/18 17:20 Pulse Oximetry 94 L 07/09/18 17:20 Last Documented Vital Signs Temperature 98.0 F 07/12/18 11:54 Pulse Rate 67 07/12/18 11:54 Respiratory Rate 18 07/12/18 11:54 Blood Pressure 145/81 H 07/12/18 11:54 Pulse Oximetry 100 07/12/18 11:54 Medical Decision Making [place] Narrative Medical decision making narrative: Patient with transient episode of hypotension , hypoxemia and decreased responsiveness now back at baseline. Will check workup and reevaluate Medical Screen Exam Complete: Yes Emergency Medical Condition: Yes Differential Diagnosis Differential Diagnosis: UTI, pneumonia, electrolyte abnormality Lab Data Result diagrams: 07/11/18 05:50 07/11/18 05:50 Lab Results 07/09/18 07/09/18 07/09/18 Range/Units 17:34 17:34 17:34 WBC 4.9 (4.0-11.0) th/mm3 RBC 2.96 L (4.50-5.90) mil/mm3 Hgb 10.3 L (13.0-17.0) gm/dL Hct 31.5 L (39.0-51.0) % MCV 106.4 H (80.0-100.0) fL MCH 34.9 H (27.0-34.0) pg MCHC 32.8 (32.0-36.0) % RDW 18.8 H (11.6-17.2) % Plt Count 66 L (150-450) th/mm3 MPV 8.9 (7.0-11.0) fL Prelim Diff (Auto) Slide review pending Neut % (Auto) 84.0 H (16.0-70.0) % Lymph % (Auto) 10.2 (9.0-44.0) % [place] % (Auto) 5.6 (0.0-8.0) % Eos % (Auto) 0.0 (0.0-4.0) % Baso % (Auto) 0.2 (0.0-2.0) % Neut # (Auto) 4.1 (1.8-7.7) th/mm3 Lymph # (Auto) 0.5 L (1.0-4.8) th/mm3 [place] # (Auto) 0.3 (0.0-0.9) th/mm3 Eos # (Auto) 0.0 (0.0-0.4) th/mm3 Baso # (Auto) 0.0 (0.0-0.2) th/mm3 WBC Differential . Diff Scan Auto diff confirmed Seg Neuts % (Manual) (16-70) % Band Neuts % (Manual) (0-6) % Lymphocytes % (Manual) (9-44) % Monocytes % (Manual) (0-8) % Metamyelocytes % (Man) (0-1) % Abs Neuts (Manual) (1.8-7.7) th/mm3 Differential Comment . Toxic Granulation (None) Platelet Estimate (Normal) Platelet Morphology (Normal) Ovalocytes (None) PT 11.0 (9.8-11.6) sec INR 1.1 Ratio APTT 23.2 L (24.3-30.1) sec Sodium 145 (136-145) meq/L Potassium 4.0 (3.5-5.1) meq/L Chloride 99 (98-107) meq/L Carbon Dioxide 39.0 H (21.0-32.0) meq/L Anion Gap 7 (5-15) meq/L BUN 38 H (7-18) mg/dL Creatinine 1.08 (0.60-1.30) mg/dL Estimated GFR 65 L (>89) mL/min Random Glucose 116 H (74-106) mg/dL Lactic Acid (0.4-2.0) mmol/L Calcium 8.3 L (8.5-10.1) mg/dL Total Bilirubin 0.4 (0.2-1.0) mg/dL AST 20 (15-37) U/L ALT 14 (12-78) U/L Alkaline Phosphatase 58 (45-117) U/L Ammonia (11-32) mcmol/L Total Creatine Kinase 35 L (39-308) U/L Troponin I (0.02-0.05) ng/mL B-Natriuretic Peptide (0-100) pg/mL Total Protein 5.8 L (6.4-8.2) g/dL Albumin 2.5 L (3.4-5.0) g/dL Urine Color (Yellw/Straw) Urine Clarity (Clear) Urine pH (5.0-8.5) Ur Specific [place] (1.002-1.035) Urine Protein (Neg-Trace) mg/dL Urine Glucose (UA) (Negative) mg/dL Urine Ketones (Negative) mg/dL Urine Occult Blood (Negative) Urine Nitrate (Negative) Urine Bilirubin (Negative) Urine Urobilinogen (Less than 2) mg/dL Ur Leukocyte Esterase (Negative) Urine RBC (0-3) /hpf Urine WBC (0-5) /hpf Urine WBC Clumps (None) Urine Bacteria (None) /hpf Hyaline Casts (0-3) /lpf Micro UA Comment Ur Microscopic Review Urine Culture Comments 07/09/18 07/09/18 07/09/18 Range/Units 17:34 17:39 17:39 WBC (4.0-11.0) th/mm3 RBC (4.50-5.90) mil/mm3 Hgb (13.0-17.0) gm/dL Hct (39.0-51.0) % MCV (80.0-100.0) fL MCH (27.0-34.0) pg MCHC (32.0-36.0) % RDW (11.6-17.2) % Plt Count (150-450) th/mm3 MPV (7.0-11.0) fL Prelim Diff (Auto) Neut % (Auto) (16.0-70.0) % Lymph % (Auto) (9.0-44.0) % [place] % (Auto) (0.0-8.0) % Eos % (Auto) (0.0-4.0) % Baso % (Auto) (0.0-2.0) % Neut # (Auto) (1.8-7.7) th/mm3 Lymph # (Auto) (1.0-4.8) th/mm3 [place] # (Auto) (0.0-0.9) th/mm3 Eos # (Auto) (0.0-0.4) th/mm3 Baso # (Auto) (0.0-0.2) th/mm3 WBC Differential Diff Scan Seg Neuts % (Manual) (16-70) % Band Neuts % (Manual) (0-6) % Lymphocytes % (Manual) (9-44) % Monocytes % (Manual) (0-8) % Metamyelocytes % (Man) (0-1) % Abs Neuts (Manual) (1.8-7.7) th/mm3 Differential Comment Toxic Granulation (None) Platelet Estimate (Normal) Platelet Morphology (Normal) Ovalocytes (None) PT (9.8-11.6) sec INR Ratio APTT (24.3-30.1) sec Sodium (136-145) meq/L Potassium (3.5-5.1) meq/L Chloride (98-107) meq/L Carbon Dioxide (21.0-32.0) meq/L Anion Gap (5-15) meq/L BUN (7-18) mg/dL Creatinine (0.60-1.30) mg/dL Estimated GFR (>89) mL/min Random Glucose (74-106) mg/dL Lactic Acid 1.4 (0.4-2.0) mmol/L Calcium (8.5-10.1) mg/dL Total Bilirubin (0.2-1.0) mg/dL AST (15-37) U/L ALT (12-78) U/L Alkaline Phosphatase (45-117) U/L Ammonia 12 (11-32) mcmol/L Total Creatine Kinase (39-308) U/L Troponin I 0.10 H (0.02-0.05) ng/mL B-Natriuretic Peptide (0-100) pg/mL Total Protein (6.4-8.2) g/dL Albumin (3.4-5.0) g/dL Urine Color (Yellw/Straw) Urine Clarity (Clear) Urine pH (5.0-8.5) Ur Specific [place] (1.002-1.035) Urine Protein (Neg-Trace) mg/dL Urine Glucose (UA) (Negative) mg/dL Urine Ketones (Negative) mg/dL Urine Occult Blood (Negative) Urine Nitrate (Negative) Urine Bilirubin (Negative) Urine Urobilinogen (Less than 2) mg/dL Ur Leukocyte Esterase (Negative) Urine RBC (0-3) /hpf Urine WBC (0-5) /hpf Urine WBC Clumps (None) Urine Bacteria (None) /hpf Hyaline Casts (0-3) /lpf Micro UA Comment Ur Microscopic Review Urine Culture Comments 07/09/18 07/10/18 07/10/18 Range/Units 18:26 01:15 05:50 WBC 3.9 L (4.0-11.0) th/mm3 RBC 2.76 L (4.50-5.90) mil/mm3 Hgb 9.6 L (13.0-17.0) gm/dL Hct 30.0 L (39.0-51.0) % MCV 108.8 H (80.0-100.0) fL MCH 34.7 H (27.0-34.0) pg MCHC 31.9 L (32.0-36.0) % RDW 19.0 H (11.6-17.2) % Plt Count 60 L (150-450) th/mm3 MPV 8.3 (7.0-11.0) fL Prelim Diff (Auto) Slide review pending Neut % (Auto) 66.8 (16.0-70.0) % Lymph % (Auto) 22.2 (9.0-44.0) % [place] % (Auto) 10.0 H (0.0-8.0) % Eos % (Auto) 0.7 (0.0-4.0) % Baso % (Auto) 0.3 (0.0-2.0) % Neut # (Auto) 2.6 (1.8-7.7) th/mm3 Lymph # (Auto) 0.9 L (1.0-4.8) th/mm3 [place] # (Auto) 0.4 (0.0-0.9) th/mm3 Eos # (Auto) 0.0 (0.0-0.4) th/mm3 Baso # (Auto) 0.0 (0.0-0.2) th/mm3 WBC Differential Manual diff final Diff Scan Seg Neuts % (Manual) 51 (16-70) % Band Neuts % (Manual) 12 H (0-6) % Lymphocytes % (Manual) 29 (9-44) % Monocytes % (Manual) 7 (0-8) % Metamyelocytes % (Man) 1 (0-1) % Abs Neuts (Manual) 2.5 (1.8-7.7) th/mm3 Differential Comment . Toxic Granulation 2+ H (None) Platelet Estimate Low L (Normal) Platelet Morphology Normal (Normal) Ovalocytes (None) PT (9.8-11.6) sec INR Ratio APTT (24.3-30.1) sec Sodium (136-145) meq/L Potassium (3.5-5.1) meq/L Chloride (98-107) meq/L Carbon Dioxide (21.0-32.0) meq/L Anion Gap (5-15) meq/L BUN (7-18) mg/dL Creatinine (0.60-1.30) mg/dL Estimated GFR (>89) mL/min Random Glucose (74-106) mg/dL Lactic Acid (0.4-2.0) mmol/L Calcium (8.5-10.1) mg/dL Total Bilirubin (0.2-1.0) mg/dL AST (15-37) U/L ALT (12-78) U/L Alkaline Phosphatase (45-117) U/L Ammonia (11-32) mcmol/L Total Creatine Kinase (39-308) U/L Troponin I 0.12 H (0.02-0.05) ng/mL B-Natriuretic Peptide (0-100) pg/mL Total Protein (6.4-8.2) g/dL Albumin (3.4-5.0) g/dL Urine Color [place] (Yellw/Straw) Urine Clarity Cloudy H (Clear) Urine pH 5.0 (5.0-8.5) Ur Specific [place] 1.018 (1.002-1.035) Urine Protein Negative (Neg-Trace) mg/dL Urine Glucose (UA) Negative (Negative) mg/dL Urine Ketones Negative (Negative) mg/dL Urine Occult Blood Small H (Negative) Urine Nitrate Negative (Negative) Urine Bilirubin Negative (Negative) Urine Urobilinogen 2.0 H (Less than 2) mg/dL Ur Leukocyte Esterase Small H (Negative) Urine RBC 4 H (0-3) /hpf Urine WBC 17 H (0-5) /hpf Urine WBC Clumps Few H (None) Urine Bacteria Occasional H (None) /hpf Hyaline Casts 12 (0-3) /lpf Micro UA Comment Cath-culture ind Ur Microscopic Review Not Reportable Urine Culture Comments Cath-cult indicated 07/10/18 07/10/18 07/11/18 Range/Units 05:50 05:50 05:50 WBC 4.8 (4.0-11.0) th/mm3 RBC 2.56 L (4.50-5.90) mil/mm3 Hgb 9.1 L (13.0-17.0) gm/dL Hct 27.1 L (39.0-51.0) % MCV 105.9 H (80.0-100.0) fL MCH 35.4 H (27.0-34.0) pg MCHC 33.4 (32.0-36.0) % RDW 18.5 H (11.6-17.2) % Plt Count 51 L (150-450) th/mm3 MPV 8.6 (7.0-11.0) fL Prelim Diff (Auto) Slide review pending Neut % (Auto) 87.3 H (16.0-70.0) % Lymph % (Auto) 9.6 (9.0-44.0) % [place] % (Auto) 3.1 (0.0-8.0) % Eos % (Auto) 0.0 (0.0-4.0) % Baso % (Auto) 0.0 (0.0-2.0) % Neut # (Auto) 4.2 (1.8-7.7) th/mm3 Lymph # (Auto) 0.5 L (1.0-4.8) th/mm3 [place] # (Auto) 0.2 (0.0-0.9) th/mm3 Eos # (Auto) 0.0 (0.0-0.4) th/mm3 Baso # (Auto) 0.0 (0.0-0.2) th/mm3 WBC Differential Manual diff final Diff Scan Seg Neuts % (Manual) 76 H (16-70) % Band Neuts % (Manual) 21 H (0-6) % Lymphocytes % (Manual) 3 L (9-44) % Monocytes % (Manual) (0-8) % Metamyelocytes % (Man) (0-1) % Abs Neuts (Manual) 4.7 (1.8-7.7) th/mm3 Differential Comment . Toxic Granulation 2+ H (None) Platelet Estimate Low L (Normal) Platelet Morphology Normal (Normal) Ovalocytes 1+ H (None) PT (9.8-11.6) sec INR Ratio APTT (24.3-30.1) sec Sodium 141 (136-145) meq/L Potassium 4.8 D (3.5-5.1) meq/L Chloride 103 (98-107) meq/L Carbon Dioxide 33.2 H (21.0-32.0) meq/L Anion Gap 5 (5-15) meq/L BUN 32 H (7-18) mg/dL Creatinine 0.73 (0.60-1.30) mg/dL Estimated GFR Greater than 89 (>89) mL/min Random Glucose 80 (74-106) mg/dL Lactic Acid (0.4-2.0) mmol/L Calcium 7.8 L (8.5-10.1) mg/dL Total Bilirubin 0.5 (0.2-1.0) mg/dL AST 55 H (15-37) U/L ALT 16 (12-78) U/L Alkaline Phosphatase 51 (45-117) U/L Ammonia (11-32) mcmol/L Total Creatine Kinase (39-308) U/L Troponin I 0.07 H (0.02-0.05) ng/mL B-Natriuretic Peptide 164 H (0-100) pg/mL Total Protein 5.7 L (6.4-8.2) g/dL Albumin 2.0 L (3.4-5.0) g/dL Urine Color (Yellw/Straw) Urine Clarity (Clear) Urine pH (5.0-8.5) Ur Specific [place] (1.002-1.035) Urine Protein (Neg-Trace) mg/dL Urine Glucose (UA) (Negative) mg/dL Urine Ketones (Negative) mg/dL Urine Occult Blood (Negative) Urine Nitrate (Negative) Urine Bilirubin (Negative) Urine Urobilinogen (Less than 2) mg/dL Ur Leukocyte Esterase (Negative) Urine RBC (0-3) /hpf Urine WBC (0-5) /hpf Urine WBC Clumps (None) Urine Bacteria (None) /hpf Hyaline Casts (0-3) /lpf Micro UA Comment Ur Microscopic Review Urine Culture Comments 07/11/18 Range/Units 05:50 WBC (4.0-11.0) th/mm3 RBC (4.50-5.90) mil/mm3 Hgb (13.0-17.0) gm/dL Hct (39.0-51.0) % MCV (80.0-100.0) fL MCH (27.0-34.0) pg MCHC (32.0-36.0) % RDW (11.6-17.2) % Plt Count (150-450) th/mm3 MPV (7.0-11.0) fL Prelim Diff (Auto) Neut % (Auto) (16.0-70.0) % Lymph % (Auto) (9.0-44.0) % [place] % (Auto) (0.0-8.0) % Eos % (Auto) (0.0-4.0) % Baso % (Auto) (0.0-2.0) % Neut # (Auto) (1.8-7.7) th/mm3 Lymph # (Auto) (1.0-4.8) th/mm3 [place] # (Auto) (0.0-0.9) th/mm3 Eos # (Auto) (0.0-0.4) th/mm3 Baso # (Auto) (0.0-0.2) th/mm3 WBC Differential Diff Scan Seg Neuts % (Manual) (16-70) % Band Neuts % (Manual) (0-6) % Lymphocytes % (Manual) (9-44) % Monocytes % (Manual) (0-8) % Metamyelocytes % (Man) (0-1) % Abs Neuts (Manual) (1.8-7.7) th/mm3 Differential Comment Toxic Granulation (None) Platelet Estimate (Normal) Platelet Morphology (Normal) Ovalocytes (None) PT (9.8-11.6) sec INR Ratio APTT (24.3-30.1) sec Sodium 143 (136-145) meq/L Potassium 3.9 D (3.5-5.1) meq/L Chloride 103 (98-107) meq/L Carbon Dioxide 35.7 H (21.0-32.0) meq/L Anion Gap 4 L (5-15) meq/L BUN 25 H (7-18) mg/dL Creatinine 0.55 L (0.60-1.30) mg/dL Estimated GFR Greater than 89 (>89) mL/min Random Glucose 122 H (74-106) mg/dL Lactic Acid (0.4-2.0) mmol/L Calcium 7.8 L (8.5-10.1) mg/dL Total Bilirubin (0.2-1.0) mg/dL AST (15-37) U/L ALT (12-78) U/L Alkaline Phosphatase (45-117) U/L Ammonia (11-32) mcmol/L Total Creatine Kinase (39-308) U/L Troponin I (0.02-0.05) ng/mL B-Natriuretic Peptide (0-100) pg/mL Total Protein (6.4-8.2) g/dL Albumin (3.4-5.0) g/dL Urine Color (Yellw/Straw) Urine Clarity (Clear) Urine pH (5.0-8.5) Ur Specific [place] (1.002-1.035) Urine Protein (Neg-Trace) mg/dL Urine Glucose (UA) (Negative) mg/dL Urine Ketones (Negative) mg/dL Urine Occult Blood (Negative) Urine Nitrate (Negative) Urine Bilirubin (Negative) Urine Urobilinogen (Less than 2) mg/dL Ur Leukocyte Esterase (Negative) Urine RBC (0-3) /hpf Urine WBC (0-5) /hpf Urine WBC Clumps (None) Urine Bacteria (None) /hpf Hyaline Casts (0-3) /lpf Micro UA Comment Ur Microscopic Review Urine Culture Comments Imaging Data Radiologist's impression: Chest X-Ray 07/09/18 17:26 CONCLUSION: No acute findings. Head CT 07/09/18 17:26 CONCLUSION: 1. No acute abnormality. 2. Atrophy. . Chest CT 07/10/18 00:00 CONCLUSION: Extensive COPD with area of cavitation in right apex of the lung not significantly changed. Right lower lobe airspace consolidation, slight infiltrate left lung base and small bilateral pleural effusions not present previously and pneumonia is a primary consideration. Discharge Plan Discharge Disposition Patient Disposition: 01 Discharge Home Discharge Condition Condition: Stable Discharge Order Discharge Orders: Discharge Order (Routine); Ordered 07/12/18 Ordered By: Zulema Bland Physicians Team ED Provider: Sharon Rene Primary Care Provider: Marie Rosas Attending Provider: Lili Rader Other Providers: [employer] M[employer],Agency Status ED Status: Left Department Discharge Information Discharge Date/Time: 07/10/18 01:20
--- NOTE | 2018-07-09 17:49 | XR ---
EXAM DATE: 07/09/2018 5:46 PM EDT AGE/SEX: 88 years / Male INDICATIONS: Heart palpitations. CLINICAL DATA: This is the patient's initial encounter. Patient reports that signs and symptoms have been present for 2 days and indicates a pain score of Nonresponsive. MEDICAL/SURGICAL HISTORY: . Chronic obstructive pulmonary disease. Pacemaker. COMPARISON: [facility] – [place]ST 1V SINGLE AP, 05/16/2018. . FINDINGS: Cardiomegaly and aortic calcification. A dual-lead pacer from a left subclavian transvenous approach is noted. There is persistent right apical volume loss and scarring pleural thickening. CONCLUSION: No acute findings. Electronically signed by: Keo Doe MD 07/09/2018 5:47 PM EDT
[2018-07-09 17:53] LABS: Baso % (Auto) 0.2 % (0.0-2.0); Hematocrit 31.5 % (39.0-51.0); Hemoglobin 10.3 gm/dL (13.0-17.0); Lymph # (Auto) 0.5 th/mm3 (1.0-4.8); Lymph % (Auto) 10.2 % (9.0-44.0); Mean Corpuscular HGB Conc 32.8 % (32.0-36.0); Mean Corpuscular Hemoglobin 34.9 pg (27.0-34.0); Mean Corpuscular Volume 106.4 fL (80.0-100.0); Mean Platelet Volume 8.9 fL (7.0-11.0); Mono # (Auto) 0.3 th/mm3 (0.0-0.9); Mono % (Auto) 5.6 % (0.0-8.0); Neut # (Auto) 4.1 th/mm3 (1.8-7.7); Platelet Count 66 th/mm3 (150-450); Red Blood Count 2.96 mil/mm3 (4.50-5.90); Red Cell Distribution Width 18.8 % (11.6-17.2); White Blood Count 4.9 th/mm3 (4.0-11.0)
[2018-07-09 18:03] LABS: Activated Partial Thrombo Time 23.2 sec (24.3-30.1); INR 1.1 Ratio
[2018-07-09 18:24] LABS: Albumin 2.5 g/dL (3.4-5.0); Anion Gap 7 meq/L (5-15); Aspartate Aminotransferase 20 U/L (15-37); Blood Urea Nitrogen 38 mg/dL (7-18); Calcium 8.3 mg/dL (8.5-10.1); Chloride 99 meq/L (98-107); Glomerular Filtration Rate 65 mL/min (>89); Glucose,Random 116 mg/dL (74-106); Sodium 145 meq/L (136-145)
[2018-07-09 18:25] LABS: Alanine Aminotransferase 14 U/L (12-78); Alkaline Phosphatase 58 U/L (45-117); Creatine Kinase 35 U/L (39-308); Total Protein 5.8 g/dL (6.4-8.2)
--- NOTE | 2018-07-09 18:32 | CT ---
EXAM DATE: 07/09/2018 6:29 PM EDT AGE/SEX: 88 years / Male INDICATIONS: Altered Mental Status CLINICAL DATA: This is the patient's initial encounter. Patient reports that signs and symptoms have been present for 1 day and indicates a pain score of 0/10. MEDICAL/SURGICAL HISTORY: Gastroparesis. Gastroesophageal reflux disease. Hypertension. Anemia, Barretts Esophagus None. RADIATION DOSE: 56.35 CTDI (mGy) COMPARISON: [facility] – [place], [place] BRAIN W/O CONTRAST, 04/21/2018. . TECHNIQUE: CT of the head without contrast. Using automated exposure control and adjustment of the mA and/or kV according to patient size, radiation dose was kept as low as reasonably achievable to ob tain optimal diagnostic quality images. DICOM format image data is available electronically for revi ew and comparison. FINDINGS: Cerebrum: The ventricles and cortical sulci are widened. Are normal for age. There are chronic calci fication seen at the basal ganglia regions. No evidence of midline shift, mass lesion, hemorrhage or acute infarction. No extraaxial fluid collections are seen. Posterior Fossa: The cerebellum and brainstem are intact. The 4th ventricle is midline. The cerebe llopontine angle is unremarkable. Extracranial: The visualized portion of the orbits is intact. Skull: The calvaria is intact. No evidence of skull fracture. CONCLUSION: 1. No acute abnormality. 2. Atrophy. . Electronically signed by: Juan Manuel Owens MD 07/09/2018 6:30 PM EDT
[2018-07-09 20:07] LABS: Bacteria,Urine Occasional /hpf; Bilirubin,Urine Negative (Negative); Clarity,Urine Cloudy (Clear); Color,Urine Amber (Yellw/Straw); Glucose,Urine (UA) Negative (Negative); Hyaline Casts,Urine 12 /lpf (0-3); Leukocyte Esterase,Urine Small (Negative); Nitrite,Urine Negative (Negative); Specific Gravity,Urine 1.018 (1.002-1.035)
[2018-07-09] MEDS ORDERED: Acetaminophen 325 MG Tablet PO PRN (23:56)
[2018-07-09] MEDS ORDERED: Bisacodyl 10 MG Supp RECTAL PRN (23:56)
[2018-07-10] MEDS: Sod Chloride 0.9% Inj 1,000 ML IV.CONT SCH ×2 (00:35→08:47)
--- NOTE | 2018-07-10 01:06 | P.HPIM ---
History of Present Illness Primary Care Physician: Marie Rosas DO History of Present Illness: This is an 88-year-old DNR male with a PMH of HTN, COPD, h/o Heart Block s/p Pacemaker, Dementia and Pancytopenia who was sent to the ER from SNF for eval of AMS. History very limited as pt unable to provide report. Per records, pt noted to be hypotensive w/ worsening mental status. Review of records w/ recent admit 05/16-05/19/18 for NSTEMI, AMS and Hypoxia, s/p eval by Cardiology, pt poor candidate for cardiac intervention and family did not wish to proceed w / cardiac workup, s/p eval by Oncology for pancytopenia w/ plan for outpatient follow up and discharged to SNF on 3L Home O2 for persistent hypoxia, also noted to be on Midodrine for chronic hypotension. On arrival, BP 97/56, HR 78, O2 sat 99% on RA, Afebrile. CBC at baseline. Hemoglobin 10.3, platelets 66. INR 1.1. GFR 65. Lactic Acid 1.4. Troponin 0.10. U/a + for UTI. - Diagnosis (1) Encephalopathy (2) Elevated troponin (3) Hypotension (4) Thrombocytopenia (5) DNR (do not resuscitate) (6) COPD (chronic obstructive pulmonary disease) (7) UTI (urinary tract infection) Review of Systems PAST FAMILY HISTORY: Unable to obtain unobtainable due to mental status PMFSH - History History Provided By: Medical Record, Chlorine Cell Tender / EMT - Medical History Medical History: Medical History (Last Reviewed 07/09/18 @ 17:32 by Sharon Rene MD) Anemia Anorexia BPH (benign prostatic hyperplasia) Barretts esophagus COPD (chronic obstructive pulmonary disease) Constipation GERD (gastroesophageal reflux disease) Gastroparesis Heart block Hypertension Hypocalcemia Hyponatremia Pancytopenia Pneumonia Urinary retention - Surgical History Surgical History: Surgical History (Last Reviewed 07/09/18 @ 17:32 by Sharon Rene MD) History of inguinal hernia repair History of permanent cardiac pacemaker placement History of transurethral resection of prostate - Tobacco History Smoking Status: Unknown if ever smoked - Alcohol History How Often Do You Have a Drink Containing Alcohol: Never - Substance Use History Substance History: No History of Abuse - Travel History Recent Travel in the [place] Within the Last 8 Weeks: No Recent Travel Out of the Country Within the Last 8 Weeks: No - Immunization History Tetanus Immunization: <5 Years Medications and Allergies Active Medications: Active Medications Acetaminophen (Tylenol) 650 mg PO Q4H PRN PRN Reason: Temp > 100.4 Al Hydroxide/Mg Hydroxide (Milk Of Magnesia Liq) 30 ml PO Q12H PRN PRN Reason: Mild Constipation Albuterol (Duoneb Neb (Prn)) 1 ampul NEB Q4HR NEB PRN PRN Reason: SOB/WHEEZING Bisacodyl (Dulcolax Supp) 10 mg RECTAL DAILY PRN PRN Reason: SEVERE CONSITIPATION Ceftriaxone Sodium 1,000 mg/ (Sodium Chloride) 100 mls @ 200 mls/hr IV.SIG Q24H MARIANNE Sodium Chloride (Ns Inj) 1,000 mls @ 100 mls/hr IV.CONT .Q10H [facility] Last Admin: 07/10/18 00:35 Dose: 100 mls/hr Lactulose (Lactulose Liq) 30 ml PO DAILY PRN PRN Reason: SEVERE CONSITIPATION Memantine (Namenda) 10 mg PO HS [facility] Midodrine (Proamatine) 2.5 mg PO DAILY [facility] Miscellaneous (Pill Splitter) 1 each OTHER UNSCH [facility] Ondansetron HCl (Zofran Inj) 4 mg IV.PUSH Q6H PRN PRN Reason: NAUSEA OR VOMITING Senna/Docusate Sodium (Mikala-Colace) 1 tab PO BID [facility] Sennosides (Senokot) 17.2 mg PO Q12H PRN PRN Reason: Moderate Constipation Sodium Chloride (Ns Flush) 2 ml IV.FLUSH PRN PRN PRN Reason: FLUSH AFTER USING IV ACCESS Allergies Allergy/AdvReac Type Severity Reaction Status Date / Time No Known Allergies Allergy Verified 06/16/18 16:09 Home Medications Medication Instructions Recorded Confirmed Type zinc sulfate 325 mg PO BID 05/16/18 07/09/18 History acetaminophen [Tylenol] 650 mg PO Q6H PRN 07/09/18 07/09/18 History bethanechol chloride 25 mg PO QID 07/09/18 07/09/18 History bisacodyl [Dulcolax (bisacodyl)] 10 mg [place] DAILY PRN 07/09/18 07/09/18 History bisacodyl [Dulcolax (bisacodyl)] 15 mg PO DAILY 07/09/18 07/09/18 History calcium carbonate [Tums] 200 mg PO Q12HR 07/09/18 07/09/18 History carvedilol [Coreg] 3.125 mg PO BID 07/09/18 07/09/18 History cyanocobalamin (vitamin B-12) 1,000 mcg IM QWEEK 07/09/18 07/09/18 History [Vitamin B-12] cyanocobalamin (vitamin B-12) 2,000 mcg PO DAILY 07/09/18 07/09/18 History [Vitamin B-12] darbepoetin ena in polysorbat 200 mcg SUB-Q QWEEK 07/09/18 07/09/18 History [Aranesp (in polysorbate)] dronabinol [Marinol] 2.5 mg PO DAILY 07/09/18 07/09/18 History ferrous sulfate 325 mg PO BID 07/09/18 07/09/18 History fluticasone-vilanterol [Breo 1 inh INHALATION DAILY 07/09/18 07/09/18 History Ellipta] folic acid 1 mg PO DAILY 07/09/18 07/09/18 History furosemide [Lasix] 20 mg PO DAILY 07/09/18 07/09/18 History guaifenesin [Mucinex] 1,200 mg PO Q12H 07/09/18 07/09/18 History lactulose 2 g PO DAILY 07/09/18 07/09/18 History lidocaine [Lidoderm] 1 patch TOPICAL DAILY 07/09/18 07/09/18 History magnesium hydroxide [Milk of 30 ml PO DAILY PRN 07/09/18 07/09/18 History Magnesia] memantine [Namenda] 10 mg PO HS 07/09/18 07/09/18 History midodrine 2.5 mg PO DAILY 07/09/18 07/09/18 History mirtazapine 15 mg PO HS 07/09/18 07/09/18 History multivitamin 1 tab PO DAILY 07/09/18 07/09/18 History nitroglycerin [Nitrostat] 0.4 mg SUBLINGUAL Q5-15M PRN 07/09/18 07/09/18 History omeprazole 20 mg PO BIDAC 07/09/18 07/09/18 History ondansetron HCl [Zofran] 4 mg PO TID 07/09/18 07/09/18 History potassium chloride 20 meq PO DAILY 07/09/18 07/09/18 History prednisone 15 mg PO DAILY 07/09/18 07/09/18 History simethicone 125 mg PO TID PRN 07/09/18 07/09/18 History tramadol 25 mg PO Q8HR PRN 07/09/18 07/09/18 History Exam Vital signs: Vital Signs 07/09/18 17:20 07/09/18 17:26 07/09/18 21:59 Temperature 98.4 F Pulse Rate 76 78 Respiratory Rate 17 16 Blood Pressure 114/60 97/56 L Pulse Oximetry 94 L 94 L 99 07/09/18 22:05 07/09/18 22:06 Temperature Pulse Rate 78 Respiratory Rate 16 Blood Pressure 83/51 L Pulse Oximetry 97 97 Intake & Output 07/09/18 07/09/18 07/10/18 06:59 18:59 06:59 Weight 63.503 kg Narrative: PE: GENERAL: Elderly male in no acute distress. SKIN: Focused skin assessment warm and dry. HEENT: PERRLA, EOMI. No scleral icterus or conjunctival pallor. No lid lag or facial droop. CARDIOVASCULAR: Regular rate and rhythm. No obvious murmurs to auscultation. No chest tenderness to palpation. RESPIRATORY: No obvious rhonchi or wheezing. Clear to auscultation. Breath sounds equal bilaterally. GASTROINTESTINAL: Abdomen soft, non-tender, nondistended. BS normal. MUSCULOSKELETAL: Extremities without clubbing, cyanosis, or edema. No obvious deformities. NEUROLOGICAL: Awake, alert and oriented to person. No focal neurologic deficits. Moving both upper and lower extremities spontaneously. PSYCHIATRIC: Appropriate mood and affect. Insight and judgment normal. Results - Labs CBC & Chem 7: 07/09/18 17:34 07/09/18 17:34 Labs: Short CBC 07/09/18 Range/Units 17:34 WBC 4.9 (4.0-11.0) th/mm3 Hgb 10.3 L (13.0-17.0) gm/dL Hct 31.5 L (39.0-51.0) % Plt Count 66 L (150-450) th/mm3 BMP 07/09/18 17:34 Sodium 145 Potassium 4.0 Chloride 99 Carbon Dioxide 39.0 H BUN 38 H Creatinine 1.08 Calcium 8.3 L Cardiac Enzymes 07/09/18 07/09/18 Range/Units 17:34 17:34 Total Creatine Kinase 35 L (39-308) U/L Troponin I 0.10 H (0.02-0.05) ng/mL Liver Function 07/09/18 Range/Units 17:34 Total Bilirubin 0.4 (0.2-1.0) mg/dL AST 20 (15-37) U/L ALT 14 (12-78) U/L Alkaline Phosphatase 58 (45-117) U/L Albumin 2.5 L (3.4-5.0) g/dL Urine 07/09/18 Range/Units 18:26 Urine Color Avani (Yellw/Straw) Urine Clarity Cloudy H (Clear) Urine pH 5.0 (5.0-8.5) Ur Specific [place] 1.018 (1.002-1.035) Urine Protein Negative (Neg-Trace) mg/dL Urine Glucose (UA) Negative (Negative) mg/dL - Imaging Impressions Chest X-Ray 07/09/18 17:26 CONCLUSION: No acute findings. Head CT 07/09/18 17:26 CONCLUSION: 1. No acute abnormality. 2. Atrophy. . Caprini VTE Risk Assessment Caprini VTE Risk Assessment: No/Low Risk (score <= 1) Caprini Risk Assessment Model: Point Value = 1 Point Value = 2 Point Value = 3 Point Value = 5 Age 41-60 Minor surgery BMI > 25 kg/m2 Swollen legs Varicose veins or History of unexplained or recurrent spontaneous Oral contraceptives or hormone replacement Sepsis (< 1 month) Serious lung disease, including pneumonia (< 1 month) Abnormal pulmonary function Acute myocardial infarction Congestive heart failure (< 1 month) History of inflammatory bowel disease Medical patient at bed rest Age 61-74 Arthroscopic surgery Major open surgery (> 45 min) Laparoscopic surgery (> 45 min) Malignancy Confined to bed (> 72 hours) Immobilizing plaster cast Central venous access Age >= 75 History of VTE Family history of VTE Factor V Leiden Prothrombin [id number] Lupus anticoagulant Anticardiolipin antibodies Elevated serum homocysteine Heparin-induced thrombocytopenia Other congenital or acquired thrombophilia Stroke (< 1 month) Elective arthroplasty Hip, pelvis, or leg fracture Acute spinal cord injury (< 1 month) Prophylaxis Regimen: Total Risk Factor Score Risk Level Prophylaxis Regimen 0-1 Low Early ambulation 2 Moderate Order ONE of the following: *Sequential Compression Device (SCD) *Heparin 5000 units SQ BID 3-4 Higher Order ONE of the following medications: *Heparin 5000 units SQ TID *Enoxaparin/Lovenox 40 mg SQ daily (WT < 150 kg, CrCl > 30 mL/min) *Enoxaparin/Lovenox 30 mg SQ daily (WT < 150 kg, CrCl > 10-29 mL/min) *Enoxaparin/Lovenox 30 mg SQ BID (WT < 150 kg, CrCl > 30 mL/min) AND/OR *Sequential Compression Device (SCD) 5 or more Highest Order ONE of the following medications: *Heparin 5000 units SQ TID (Preferred with Epidurals) *Enoxaparin/Lovenox 40 mg SQ daily (WT < 150 kg, CrCl > 30 mL/min) *Enoxaparin/Lovenox 30 mg SQ daily (WT < 150 kg, CrCl > 10-29 mL/min) *Enoxaparin/Lovenox 30 mg SQ BID (WT < 150 kg, CrCl > 30 mL/min) AND *Sequential Compression Device (SCD) Assessment and Plan - Assessment (1) Encephalopathy Code(s): G93.40 - Encephalopathy, unspecified Status: Acute (2) Elevated troponin Code(s): R74.8 - Abnormal levels of other serum enzymes Status: Acute (3) Hypotension Code(s): I95.9 - Hypotension, unspecified Status: Acute (4) Thrombocytopenia Code(s): D69.6 - Thrombocytopenia, unspecified Status: Acute (5) DNR (do not resuscitate) Code(s): Z66 - Do not resuscitate Status: Acute (6) COPD (chronic obstructive pulmonary disease) Code(s): J44.9 - Chronic obstructive pulmonary disease, unspecified Status: Chronic (7) UTI (urinary tract infection) Code(s): N39.0 - Urinary tract infection, site not specified Status: Acute - Plan A/P: 1. Encephalopathy: acute episode of AMS per SNF report, now apparently back to baseline, likely compounded by UTI. Resume home Namenda 2. Elevated Trop: Trop 0.10, no complaints of chest pain, recent admit 7/8-09/26 for NSTEMI, poor candidate for intervention, family wishing to avoid cardiac intervention, s/p ASA in ER, will check serial cardiac enzymes, Cardio Consult if needed. 3. Hypotension: BP 80-90's, per review of records, pt w/ chronic hypotension, BP currently 116/58, resume home Midodrine, monitor BP. 4. Thrombocytopenia: Chronic. Platelets 66. No active bleeding noted, hold further ASA/anticoagulation in light of thrombocytopenia. Outpatient Hematology follow up as scheduled. 5. COPD: Chronic Respiratory Failure, O2 Dependent, resume home medications, DuoNeb prn, monitor O2 6. UTI: U/a w/ UTI, start Rocephin IV, follow up cultures, monitor I/O, IVF for hydration. 7. DNR: Code status reviewed and confirmed. 8. DVT Prophylaxis: SCD/Teds 9. Social work for d/c planning as needed 10. Case discussed w/ ER physician at length, labs/records/imaging reviewed by me.
[2018-07-10 07:32] LABS: Baso % (Auto) 0.3 % (0.0-2.0); Eos % (Auto) 0.7 % (0.0-4.0); Hemoglobin 9.6 gm/dL (13.0-17.0); Lymph # (Auto) 0.9 th/mm3 (1.0-4.8); Lymph % (Auto) 22.2 % (9.0-44.0); Mean Corpuscular HGB Conc 31.9 % (32.0-36.0); Mean Corpuscular Hemoglobin 34.7 pg (27.0-34.0); Mean Corpuscular Volume 108.8 fL (80.0-100.0); Mean Platelet Volume 8.3 fL (7.0-11.0); Mono # (Auto) 0.4 th/mm3 (0.0-0.9); Neut # (Auto) 2.6 th/mm3 (1.8-7.7); Neut % (Auto) 66.8 % (16.0-70.0); Platelet Count 60 th/mm3 (150-450); Red Blood Count 2.76 mil/mm3 (4.50-5.90); White Blood Count 3.9 th/mm3 (4.0-11.0)
[2018-07-10 07:33] LABS: Alanine Aminotransferase 16 U/L (12-78); Anion Gap 5 meq/L (5-15); Blood Urea Nitrogen 32 mg/dL (7-18); Calcium 7.8 mg/dL (8.5-10.1); Carbon Dioxide 33.2 meq/L (21.0-32.0); Chloride 103 meq/L (98-107); Glucose,Random 80 mg/dL (74-106); Potassium 4.8 meq/L (3.5-5.1); Sodium 141 meq/L (136-145)
[2018-07-10 07:38] LABS: Alkaline Phosphatase 51 U/L (45-117); Aspartate Aminotransferase 55 U/L (15-37); Glomerular Filtration Rate Greater Than 89 mL/min (>89); Total Protein 5.7 g/dL (6.4-8.2); Troponin I 0.07 ng/mL (0.02-0.05)
[2018-07-10] MEDS: Senna/Docusate Sodium 8.6/50 MG Tablet PO SCH ×2 (10:16→20:32)
[2018-07-10 10:32] LABS: Lymphocytes 29 % (9-44); Metamyelocytes 1 % (0-1); Monocytes 7 % (0-8); Toxic Granulation 2+
[2018-07-10 10:33] LABS: Platelet Morphology Normal (Normal)
--- NOTE | 2018-07-10 14:28 | P.PN ---
Subjective Interval history: Follow-up visit altered mental status, dementia, COPD, HTN, history of heart block with pacemaker, elevated troponin. Patient seen and examined today. Sister at the bedside. Reports he is doing okay. Complaints of cough, expectorating yellow sputum. States occasionally having shortness of breath. On 2-4 L nasal cannula. Patient states that he is constantly on O2 even and [employer]. Asking if he can go back. Denies pain and discomfort. Denies chest pain, palpitations, headaches, dizziness. Denies fevers, chills, n/v/d. Denies dysuria. Physical Exam Vital signs: Vital Signs 07/09/18 17:20 07/09/18 17:26 07/09/18 21:59 Temperature 98.4 F Pulse Rate 76 78 Respiratory Rate 17 16 Blood Pressure 114/60 97/56 L Pulse Oximetry 94 L 94 L 99 07/09/18 22:05 07/09/18 22:06 07/10/18 01:58 Temperature 97.8 F Pulse Rate 78 70 Respiratory Rate 16 16 Blood Pressure 83/51 L 112/57 L Pulse Oximetry 97 97 99 07/10/18 02:00 07/10/18 08:00 07/10/18 12:00 Temperature 98.0 F 98.4 F Pulse Rate 85 91 H 93 H Respiratory Rate 16 16 Blood Pressure 97/55 L 120/63 Pulse Oximetry 92 L 90 L Intake & Output 07/09/18 07/10/18 07/10/18 18:59 06:59 18:59 Intake Total 950 / 950 Balance 950 / 950 Weight 63.503 kg 52.5 kg Intake: IV 950 / 950 NS Inj 1,000 ML @ 100 mls/hr IV 950 / 950 .CONT .Q10H [facility] Rx#:[id number] Other: Date of Last Bowel Movement 07/10/18 Narrative: GENERAL: This is a thin appearing elderly male, in no apparent distress. SKIN: Warm and dry. HEENT: Normocephalic. Pupils equal round and reactive. Nose without bleeding. Airway patent. NECK: Trachea midline. Supple. CARDIOVASCULAR: Regular rate and rhythm without murmurs, gallops, or rubs. RESPIRATORY: Diminished bases. No wheezes, rales, or rhonchi. GASTROINTESTINAL: Abdomen soft, non-tender, nondistended. Bowel Sounds normoactive x4. MUSCULOSKELETAL: Extremities without clubbing, cyanosis, or edema. NEUROLOGICAL: Awake and alert. Oriented to place, person. Moves all extremities. Normal speech. - Urinary Catheter Management Straight Cath placed during this visit: yes, but has since been removed by the nurse Reason for continuing: Not indwelling catheter Insertion date: 07/09/18 Insertion time: 17:58 Removal date: 07/09/18 Removal time: 18:01 Results - Labs CBC & Chem 7: 07/10/18 05:50 07/10/18 05:50 Laboratory Results - last 24 hr 07/09/18 07/09/18 07/09/18 17:34 17:34 17:34 WBC 4.9 RBC 2.96 L Hgb 10.3 L Hct 31.5 L MCV 106.4 H MCH 34.9 H MCHC 32.8 RDW 18.8 H Plt Count 66 L MPV 8.9 Prelim Diff (Auto) Slide review pending Neut % (Auto) 84.0 H Lymph % (Auto) 10.2 [place] % (Auto) 5.6 Eos % (Auto) 0.0 Baso % (Auto) 0.2 Neut # (Auto) 4.1 Lymph # (Auto) 0.5 L [place] # (Auto) 0.3 Eos # (Auto) 0.0 Baso # (Auto) 0.0 WBC Differential . Diff Scan Auto diff confirmed Seg Neuts % (Manual) Band Neuts % (Manual) Lymphocytes % (Manual) Monocytes % (Manual) Metamyelocytes % (Man) Abs Neuts (Manual) Differential Comment . Toxic Granulation Platelet Estimate Platelet Morphology PT 11.0 INR 1.1 APTT 23.2 L Sodium 145 Potassium 4.0 Chloride 99 Carbon Dioxide 39.0 H Anion Gap 7 BUN 38 H Creatinine 1.08 Estimated GFR 65 L Random Glucose 116 H Lactic Acid Calcium 8.3 L Total Bilirubin 0.4 AST 20 ALT 14 Alkaline Phosphatase 58 Ammonia Total Creatine Kinase 35 L Troponin I Total Protein 5.8 L Albumin 2.5 L Urine Color Urine Clarity Urine pH Ur Specific [place] Urine Protein Urine Glucose (UA) Urine Ketones Urine Occult Blood Urine Nitrate Urine Bilirubin Urine Urobilinogen Ur Leukocyte Esterase Urine RBC Urine WBC Urine WBC Clumps Urine Bacteria Hyaline Casts Micro UA Comment Ur Microscopic Review Urine Culture Comments 07/09/18 07/09/18 07/09/18 17:34 17:39 17:39 WBC RBC Hgb Hct MCV MCH MCHC RDW Plt Count MPV Prelim Diff (Auto) Neut % (Auto) Lymph % (Auto) [place] % (Auto) Eos % (Auto) Baso % (Auto) Neut # (Auto) Lymph # (Auto) [place] # (Auto) Eos # (Auto) Baso # (Auto) WBC Differential Diff Scan Seg Neuts % (Manual) Band Neuts % (Manual) Lymphocytes % (Manual) Monocytes % (Manual) Metamyelocytes % (Man) Abs Neuts (Manual) Differential Comment Toxic Granulation Platelet Estimate Platelet Morphology PT INR APTT Sodium Potassium Chloride Carbon Dioxide Anion Gap BUN Creatinine Estimated GFR Random Glucose Lactic Acid 1.4 Calcium Total Bilirubin AST ALT Alkaline Phosphatase Ammonia 12 Total Creatine Kinase Troponin I 0.10 H Total Protein Albumin Urine Color Urine Clarity Urine pH Ur Specific [place] Urine Protein Urine Glucose (UA) Urine Ketones Urine Occult Blood Urine Nitrate Urine Bilirubin Urine Urobilinogen Ur Leukocyte Esterase Urine RBC Urine WBC Urine WBC Clumps Urine Bacteria Hyaline Casts Micro UA Comment Ur Microscopic Review Urine Culture Comments 07/09/18 07/10/18 07/10/18 18:26 01:15 05:50 WBC 3.9 L RBC 2.76 L Hgb 9.6 L Hct 30.0 L MCV 108.8 H MCH 34.7 H MCHC 31.9 L RDW 19.0 H Plt Count 60 L MPV 8.3 Prelim Diff (Auto) Slide review pending Neut % (Auto) 66.8 Lymph % (Auto) 22.2 [place] % (Auto) 10.0 H Eos % (Auto) 0.7 Baso % (Auto) 0.3 Neut # (Auto) 2.6 Lymph # (Auto) 0.9 L [place] # (Auto) 0.4 Eos # (Auto) 0.0 Baso # (Auto) 0.0 WBC Differential Manual diff final Diff Scan Seg Neuts % (Manual) 51 Band Neuts % (Manual) 12 H Lymphocytes % (Manual) 29 Monocytes % (Manual) 7 Metamyelocytes % (Man) 1 Abs Neuts (Manual) 2.5 Differential Comment . Toxic Granulation 2+ H Platelet Estimate Low L Platelet Morphology Normal PT INR APTT Sodium Potassium Chloride Carbon Dioxide Anion Gap BUN Creatinine Estimated GFR Random Glucose Lactic Acid Calcium Total Bilirubin AST ALT Alkaline Phosphatase Ammonia Total Creatine Kinase Troponin I 0.12 H Total Protein Albumin Urine Color Avani Urine Clarity Cloudy H Urine pH 5.0 Ur Specific [place] 1.018 Urine Protein Negative Urine Glucose (UA) Negative Urine Ketones Negative Urine Occult Blood Small H Urine Nitrate Negative Urine Bilirubin Negative Urine Urobilinogen 2.0 H Ur Leukocyte Esterase Small H Urine RBC 4 H Urine WBC 17 H Urine WBC Clumps Few H Urine Bacteria Occasional H Hyaline Casts 12 Micro UA Comment Cath-culture ind Ur Microscopic Review Not Reportable Urine Culture Comments Cath-cult indicated 07/10/18 05:50 WBC RBC Hgb Hct MCV MCH MCHC RDW Plt Count MPV Prelim Diff (Auto) Neut % (Auto) Lymph % (Auto) [place] % (Auto) Eos % (Auto) Baso % (Auto) Neut # (Auto) Lymph # (Auto) [place] # (Auto) Eos # (Auto) Baso # (Auto) WBC Differential Diff Scan Seg Neuts % (Manual) Band Neuts % (Manual) Lymphocytes % (Manual) Monocytes % (Manual) Metamyelocytes % (Man) Abs Neuts (Manual) Differential Comment Toxic Granulation Platelet Estimate Platelet Morphology PT INR APTT Sodium 141 Potassium 4.8 D Chloride 103 Carbon Dioxide 33.2 H Anion Gap 5 BUN 32 H Creatinine 0.73 Estimated GFR Greater than 89 Random Glucose 80 Lactic Acid Calcium 7.8 L Total Bilirubin 0.5 AST 55 H ALT 16 Alkaline Phosphatase 51 Ammonia Total Creatine Kinase Troponin I 0.07 H Total Protein 5.7 L Albumin 2.0 L Urine Color Urine Clarity Urine pH Ur Specific [place] Urine Protein Urine Glucose (UA) Urine Ketones Urine Occult Blood Urine Nitrate Urine Bilirubin Urine Urobilinogen Ur Leukocyte Esterase Urine RBC Urine WBC Urine WBC Clumps Urine Bacteria Hyaline Casts Micro UA Comment Ur Microscopic Review Urine Culture Comments Microbiology 07/09/18 18:26 Clean Catch Urine Urine Culture - Preliminary gram negative rods - Imaging Impressions Chest X-Ray 07/09/18 17:26 CONCLUSION: No acute findings. Head CT 07/09/18 17:26 CONCLUSION: 1. No acute abnormality. 2. Atrophy. . Assessment and Plan - Assessment (1) Encephalopathy Code(s): G93.40 - Encephalopathy, unspecified Status: Acute (2) Elevated troponin Code(s): R74.8 - Abnormal levels of other serum enzymes Status: Acute (3) Hypotension Code(s): I95.9 - Hypotension, unspecified Status: Acute (4) Thrombocytopenia Code(s): D69.6 - Thrombocytopenia, unspecified Status: Acute (5) DNR (do not resuscitate) Code(s): Z66 - Do not resuscitate Status: Acute (6) COPD (chronic obstructive pulmonary disease) Code(s): J44.9 - Chronic obstructive pulmonary disease, unspecified Status: Chronic (7) UTI (urinary tract infection) Code(s): N39.0 - Urinary tract infection, site not specified Status: Acute - Plan 88-year-old DNR male with a PMH of HTN, COPD, h/o Heart Block s/p Pacemaker, Dementia and Pancytopenia who was sent to the ER from SNF for eval of AMS. COPD, possible exacerbation chronic Respiratory Failure, O2 Dependent -Duo nebs scheduled, as needed -Monitor O2 sat, O2 continues keep O2 sat greater than 90 -Symbicort -IV Solu-Medrol, Mucinex -CXR negative -CTA ordered UTI -On Rocephin IV -Follow up cultures, gram-negative rods -IVF for hydration. Encephalopathy: acute episode of AMS per SNF report -Per review of record, apparently back to baseline -Possibly compounded by UTI -Resume home Namenda Elevated Trop: Trop 0.10, no complaints of chest pain, recent admit 05/16- for NSTEMI -poor candidate for intervention, family wishing to avoid cardiac intervention, s/p ASA in ER -This is possibly secondary to demand ischemia, patient was examined with increasing cough and shortness of breath, increased O2 demand as per nursing -Serial cardiac enzymes trending down Hypotension -BP 80-90's, per review of records, pt w/ chronic hypotension -Midodrine restarted. BP within normal range Pancytopenia Thrombocytopenia: Chronic. -Platelets 66. No active bleeding noted, hold further ASA/anticoagulation in light of thrombocytopenia. -Outpatient Hematology follow up as scheduled. DNR: Code status reviewed and confirmed. Code Status: DNR Discussed Condition With: Patient, nurse, Dr. Cid Discharge Planning: Plan to DC back to [facility] when clinically improved.
[2018-07-10] MEDS ORDERED: Simethicone 125 MG Chew Tablet PO PRN (16:51)
[2018-07-10] MEDS: Budesonide-Formoterol 160/4.5 MCG 6 GM Inhaler INH SCH ×2 (18:24→22:47)
[2018-07-10] MEDS: MethylPREDNISolone Sod Succinate Inj 40 MG/ML Vial IV.PUSH SCH ×2 (18:24→22:47)
[2018-07-10] MEDS: guaiFENesin 600 MG ER Tablet PO SCH (18:24)
[2018-07-10] MEDS: DRONABINOL 2.5 MG CAPSULE PO SCH (18:24)
--- NOTE | 2018-07-10 18:26 | CT ---
EXAM DATE: 07/10/2018 6:10 PM EDT AGE/SEX: 88 years / Male INDICATIONS: Cough and shortness of breath today. CLINICAL DATA: This is the patient's initial encounter. Patient reports that signs and symptoms have been present for 1 day and indicates a pain score of 0/10. MEDICAL/SURGICAL HISTORY: Hypertension. Chronic obstructive pulmonary disease. Anemia. Pacemaker. TURP RADIATION DOSE: 6.23 CTDI (mGy) COMPARISON: POI, CT CHEST W/ CONTRAST, 12/29/2017. . TECHNIQUE: Multiple contiguous axial images were obtained through the chest without contrast. Image s were obtained in suspended respiration using multiple row detector helical technique. Using automa mago exposure control and adjustment of the mA and/or kV according to patient size, radiation dose was kept as low as reasonably achievable to obtain optimal diagnostic quality images. DICOM format imag e data is available electronically for review and comparison. FINDINGS: Cavitary lesion is present right upper lobe posteromedial measures 4.7 cm in size not significantly c hanged since 12/2017. Extensive COPD is seen with areas of scarring in both lungs. There is also dense parenchymal consolidation in right lower lobe not present previously. Small bilateral pleural effusi ons are present with slight left lung base infiltrate not present previously. Biapical parenchymal op acities are also seen probably areas of scar. Chronic vascular atherosclerotic calcifications are seen involving the aorta. Coronary artery calcifi cations are seen typically seen with coronary artery disease and clinical correlation and evaluation is suggested. There is no pleural effusion. No appreciable pathological adenopathy is seen within th e mediastinum. Multiple old rib fractures are seen on the right. CONCLUSION: Extensive COPD with area of cavitation in right apex of the lung not significantly changed. Right lower lobe airspace consolidation, slight infiltrate left lung base and small bilateral pleural effusions not present previously and pneumonia is a primary consideration. Electronically signed by: Godwin Izquierdo MD 07/10/2018 6:25 PM EDT
[2018-07-10] MEDS: Mirtazapine 15 MG Tablet PO SCH (20:30)
[2018-07-10] MEDS: Ferrous Sulfate 325 MG Tablet PO SCH (20:31)
[2018-07-10] MEDS ORDERED: guaiFENesin 600 MG ER Tablet PO SCH (21:00)
[2018-07-11] MEDS: guaiFENesin 600 MG ER Tablet PO SCH ×2 (06:20→18:22)
[2018-07-11] MEDS: MethylPREDNISolone Sod Succinate Inj 40 MG/ML Vial IV.PUSH SCH ×3 (06:21→22:23)
[2018-07-11 07:17] LABS: Hematocrit 27.1 % (39.0-51.0); Hemoglobin 9.1 gm/dL (13.0-17.0); Lymph # (Auto) 0.5 th/mm3 (1.0-4.8); Lymph % (Auto) 9.6 % (9.0-44.0); Mean Corpuscular HGB Conc 33.4 % (32.0-36.0); Mean Corpuscular Hemoglobin 35.4 pg (27.0-34.0); Mean Corpuscular Volume 105.9 fL (80.0-100.0); Mean Platelet Volume 8.6 fL (7.0-11.0); Mono # (Auto) 0.2 th/mm3 (0.0-0.9); Mono % (Auto) 3.1 % (0.0-8.0); Neut # (Auto) 4.2 th/mm3 (1.8-7.7); Neut % (Auto) 87.3 % (16.0-70.0); Platelet Count 51 th/mm3 (150-450); Red Blood Count 2.56 mil/mm3 (4.50-5.90); Red Cell Distribution Width 18.5 % (11.6-17.2); White Blood Count 4.8 th/mm3 (4.0-11.0)
[2018-07-11 07:27] LABS: Anion Gap 4 meq/L (5-15); Blood Urea Nitrogen 25 mg/dL (7-18); Calcium 7.8 mg/dL (8.5-10.1); Carbon Dioxide 35.7 meq/L (21.0-32.0); Chloride 103 meq/L (98-107); Glomerular Filtration Rate Greater Than 89 mL/min (>89); Glucose,Random 122 mg/dL (74-106); Potassium 3.9 meq/L (3.5-5.1); Sodium 143 meq/L (136-145)
[2018-07-11] MEDS: Folic Acid 1 MG Tablet PO SCH (09:52)
[2018-07-11] MEDS: DRONABINOL 2.5 MG CAPSULE PO SCH (09:52)
[2018-07-11] MEDS: Ferrous Sulfate 325 MG Tablet PO SCH ×2 (09:52→22:24)
[2018-07-11] MEDS: Budesonide-Formoterol 160/4.5 MCG 6 GM Inhaler INH SCH ×2 (09:53→23:00)
[2018-07-11] MEDS: Senna/Docusate Sodium 8.6/50 MG Tablet PO SCH ×2 (09:56→22:25)
[2018-07-11 10:29] LABS: Lymphocytes 3 % (9-44)
[2018-07-11 10:30] LABS: Ovalocytes 1+; Platelet Morphology Normal (Normal); Toxic Granulation 2+
--- NOTE | 2018-07-11 12:47 | P.PN ---
Subjective Interval history: Follow-up visit altered mental status, dementia, COPD, HTN, history of heart block with pacemaker, elevated troponin. Patient seen and examined today. Reports cough. States he feels better compared to yesterday. Patient states physical therapy has gotten him up and walk a little bit. Denies pain and discomfort. Denies worsening SOB/ dyspnea. Denies chest pain, palpitations, headaches, dizziness. Denies fevers, chills, n/v/d. Denies dysuria. Physical Exam Vital signs: Vital Signs 07/10/18 15:31 07/10/18 16:34 07/10/18 19:31 Temperature 98.6 F 98.9 F Pulse Rate 88 89 83 Respiratory Rate 20 16 17 Blood Pressure 117/70 105/61 Pulse Oximetry 98 96 93 L 07/10/18 20:55 07/10/18 20:56 07/10/18 23:38 Temperature 98.4 F Pulse Rate 76 75 Respiratory Rate 16 16 Blood Pressure 114/69 Pulse Oximetry 92 L 95 07/11/18 02:27 07/11/18 03:40 07/11/18 07:58 Temperature 98.0 F Pulse Rate 97 H 95 H Respiratory Rate 16 15 Blood Pressure 120/63 Pulse Oximetry 92 L 94 L 94 L 07/11/18 08:00 07/11/18 09:50 07/11/18 12:29 Temperature 96.6 F L 97.4 F L Pulse Rate 81 79 52 L Respiratory Rate 16 16 Blood Pressure 129/72 107/52 L Pulse Oximetry 95 95 99 Intake & Output 07/10/18 07/11/18 07/11/18 18:59 06:59 18:59 Intake Total 1750 / 1750 250 / 250 Output Total 100 / 100 375 / 375 475 / 475 Balance 1650 / 1650 -375 / -375 -225 / -225 Weight 52.5 kg Intake: IV 1750 / 1750 250 / 250 NS Inj 1,000 ML @ 100 mls/hr IV 1750 / 1750 .CONT .Q10H MARIANNE Rx#:[id number] Levaquin 750 mg Premix Inj 150 150 / 150 ML @ 100 mls/hr IV.SIG Q24H MARIANNE Rx#:[id number] Rocephin Inj 1,000 MG In NS Inj 100 / 100 100 ML @ 200 mls/hr IV.SIG Q24H MARIANNE Rx#:[id number] Output: Urine 100 / 100 375 / 375 475 / 475 Other: Date of Last Bowel Movement 07/10/18 07/11/18 # Bowel Movements 1 Narrative: GENERAL: This is a thin appearing elderly male, in no apparent distress. SKIN: Warm and dry. HEENT: Normocephalic. Pupils equal round and reactive. Nose without bleeding. Airway patent. NECK: Trachea midline. Supple. CARDIOVASCULAR: Regular rate and rhythm without murmurs, gallops, or rubs. RESPIRATORY: Diminished bases. No wheezes, rales, or rhonchi. GASTROINTESTINAL: Abdomen soft, non-tender, nondistended. Bowel Sounds normoactive x4. MUSCULOSKELETAL: Extremities without clubbing, cyanosis, or edema. NEUROLOGICAL: Awake and alert. Oriented to place, person. Moves all extremities. Normal speech. - Urinary Catheter Management Straight Cath placed during this visit: yes, but has since been removed by the nurse Reason for continuing: Not indwelling catheter Insertion date: 07/09/18 Insertion time: 17:58 Removal date: 07/09/18 Removal time: 18:01 Results - Labs CBC & Chem 7: 07/11/18 05:50 07/11/18 05:50 Laboratory Results - last 24 hr 07/10/18 07/11/18 07/11/18 05:50 05:50 05:50 WBC 4.8 RBC 2.56 L Hgb 9.1 L Hct 27.1 L MCV 105.9 H MCH 35.4 H MCHC 33.4 RDW 18.5 H Plt Count 51 L MPV 8.6 Prelim Diff (Auto) Slide review pending Neut % (Auto) 87.3 H Lymph % (Auto) 9.6 Barren % (Auto) 3.1 Eos % (Auto) 0.0 Baso % (Auto) 0.0 Neut # (Auto) 4.2 Lymph # (Auto) 0.5 L Barren # (Auto) 0.2 Eos # (Auto) 0.0 Baso # (Auto) 0.0 WBC Differential Manual diff final Seg Neuts % (Manual) 76 H Band Neuts % (Manual) 21 H Lymphocytes % (Manual) 3 L Abs Neuts (Manual) 4.7 Differential Comment . Toxic Granulation 2+ H Platelet Estimate Low L Platelet Morphology Normal Ovalocytes 1+ H Sodium 143 Potassium 3.9 D Chloride 103 Carbon Dioxide 35.7 H Anion Gap 4 L BUN 25 H Creatinine 0.55 L Estimated GFR Greater than 89 Random Glucose 122 H Calcium 7.8 L B-Natriuretic Peptide 164 H Microbiology 07/09/18 18:26 Clean Catch Urine Urine Culture - Final Pseudomonas aeruginosa - Imaging Impressions Chest CT 07/10/18 00:00 CONCLUSION: Extensive COPD with area of cavitation in right apex of the lung not significantly changed. Right lower lobe airspace consolidation, slight infiltrate left lung base and small bilateral pleural effusions not present previously and pneumonia is a primary consideration. Assessment and Plan - Assessment (1) Encephalopathy Code(s): G93.40 - Encephalopathy, unspecified Status: Acute (2) Elevated troponin Code(s): R74.8 - Abnormal levels of other serum enzymes Status: Acute (3) Hypotension Code(s): I95.9 - Hypotension, unspecified Status: Acute (4) Thrombocytopenia Code(s): D69.6 - Thrombocytopenia, unspecified Status: Acute (5) DNR (do not resuscitate) Code(s): Z66 - Do not resuscitate Status: Acute (6) COPD (chronic obstructive pulmonary disease) Code(s): J44.9 - Chronic obstructive pulmonary disease, unspecified Status: Chronic (7) UTI (urinary tract infection) Code(s): N39.0 - Urinary tract infection, site not specified Status: Acute - Plan 88-year-old DNR male with a PMH of HTN, COPD, h/o Heart Block s/p Pacemaker, Dementia and Pancytopenia who was sent to the ER from [facility] for eval of AMS. COPD, possible exacerbation chronic Respiratory Failure, O2 Dependent -Duo nebs scheduled, as needed -Monitor O2 sat, O2 continues keep O2 sat greater than 90 -Symbicort -IV Solu-Medrol, Mucinex -CXR negative -Chest CT showed extensive COPD with area of cavitation the right affects of the lung not significantly changed. Right lower lobe airspace consolidation, slight infiltrate left lung base and small bilateral pleural effusions not present previously and pneumonia is a primary consideration. -Start Levaquin IV, transition to p.o. UTI -On Rocephin IV, will DC cultures sensitive to Levaquin -Cultures, came back pseudomonas aeruginosa, sensitive to Levaquin -IVF for hydration. Encephalopathy: acute episode of AMS per SNF report -Per review of record, apparently back to baseline -Possibly compounded by UTI -Resume home Namenda Elevated Trop: Trop 0.10, no complaints of chest pain, recent admit 05/16- for NSTEMI -poor candidate for intervention, family wishing to avoid cardiac intervention, s/p ASA in ER -This is possibly secondary to demand ischemia, patient was examined with increasing cough and shortness of breath, increased O2 demand as per nursing -Serial cardiac enzymes trending down Hypotension -BP 80-90's, per review of records, pt w/ chronic hypotension -Midodrine restarted. BP within normal range Pancytopenia Thrombocytopenia: Chronic. -Platelets 66. No active bleeding noted, hold further ASA/anticoagulation in light of thrombocytopenia. -Outpatient Hematology follow up as scheduled. DNR: Code status reviewed and confirmed. Code Status: Full code Discussed Condition With: Patient, nursing Discharge Planning: [facility] clinically [facility].
[2018-07-11] MEDS: Mirtazapine 15 MG Tablet PO SCH (22:24)
[2018-07-12] MEDS: guaiFENesin 600 MG ER Tablet PO SCH (05:35)
[2018-07-12] MEDS: MethylPREDNISolone Sod Succinate Inj 40 MG/ML Vial IV.PUSH SCH (05:36)
[2018-07-12 08:13] VITALS: TEMP 98
[2018-07-12] MEDS ORDERED: Enoxaparin Inj 40 MG/0.4 ML Syringe SQ SCH (09:00)
--- NOTE | 2018-07-12 09:01 | P.DS ---
Date of admission: 07/09/18 23:58 Primary care physician: Marie Rosas DO Attending physician on discharge: Lili Rader Anticipated date of discharge: 07/12/18 Brief History from admission: This is an 88-year-old DNR male with a PMH of HTN, COPD, h/o Heart Block s/p Pacemaker, Dementia and Pancytopenia who was sent to the ER from SNF for eval of AMS. History very limited as pt unable to provide report. Per records, pt noted to be hypotensive w/ worsening mental status. Review of records w/ recent admit 05/16-05/19/18 for NSTEMI, AMS and Hypoxia, s/p eval by Cardiology, pt poor candidate for cardiac intervention and family did not wish to proceed w / cardiac workup, s/p eval by Oncology for pancytopenia w/ plan for outpatient follow up and discharged to SNF on 3L Home O2 for persistent hypoxia, also noted to be on Midodrine for chronic hypotension. On arrival, BP 97/56, HR 78, O2 sat 99% on RA, Afebrile. CBC at baseline. Hemoglobin 10.3, platelets 66. INR 1.1. GFR 65. Lactic Acid 1.4. Troponin 0.10. U/a + for UTI. Patient update on day of discharge: Follow-up visit altered mental status, dementia, COPD, HTN, history of heart block with pacemaker,UTI, Pneumonia. Patient seen and examined today. States he is feeling better. Denies worsening SOB/ dyspnea. Denies chest pain, palpitations, headaches, dizziness. Denies fevers, chills, n/v/d. Denies dysuria. DS: Diagnosis - Discharge Diagnosis (1) Encephalopathy Status: Acute (2) Elevated troponin Status: Acute (3) Hypotension Status: Acute (4) Thrombocytopenia Status: Acute (5) DNR (do not resuscitate) Status: Acute (6) COPD (chronic obstructive pulmonary disease) Status: Chronic (7) UTI (urinary tract infection) Status: Acute DS: Medications - Discharge Medications Prescriptions: levofloxacin [Levaquin] 750 mg PO DAILY #6 tab prednisone 20 mg PO BID #10 tab DS: Summary Hospital Course: 88-year-old DNR male with a PMH of HTN, COPD, h/o Heart Block s/p Pacemaker, Dementia and Pancytopenia who was sent to the ER from SNF for eval of AMS. He has COPD with possible exacerbation, he has chronic Respiratory Failure and is O2 Dependent. Patient was provided with DuoNeb scheduled and as needed. He is on Symbicort. He was given IV Solu-Medrol and Mucinex. He will transition to p.o. prednisone when discharged. Chest x-ray was negative. However, Chest CT showed extensive COPD with area of cavitation the right affects of the lung not significantly changed. Right lower lobe airspace consolidation, slight infiltrate left lung base and small bilateral pleural effusions not present previously and pneumonia is a primary consideration. Patient was started on Levaquin IV and will transition to p.o. on discharge. Patient found to have urinary tract infection growing pseudomonas aeruginosa which is sensitive also to Levaquin. Encourage p.o. fluid hydration. Patient came in with acute episode of altered mental status as per SNF where he came from possibly this was compounded with urinary tract infection and possible pneumonia. Resume home Namenda. Mental status has improved. Patient found to have elevated troponin on admission he is poor candidate for intervention this is possibly secondary to demand ischemia as patient was examined with increasing cough and shortness of breath with increased O2 demand during admission. Serial cardiac enzymes trended down. Patient had chronic hypotension and midodrine was restarted. He has a chronic pancytopenia, thrombocytopenia. No active bleeding was noted. Patient has met maximal benefits of hospitalization. Clinically stable for discharge. Spoke extensively with daughter, BIANCA Liao from [facility] regarding patient condition, and treatment plan. All questions have been answered. - Time Spent with Patient Total time spent providing and/or coordinating discharge services: Greater than 30 minutes - Quality: VTE Deep Vein Thrombosis/Pulmonary Embolism Present on Admission: No Exam Vital signs: Vital Signs 07/11/18 09:50 07/11/18 12:29 07/11/18 16:45 Temperature 97.4 F L 97.6 F Pulse Rate 79 52 L 79 Respiratory Rate 16 16 Blood Pressure 107/52 L 127/78 Pulse Oximetry 95 99 100 07/11/18 19:00 07/11/18 19:21 07/11/18 19:22 Temperature 97.5 F L Pulse Rate 82 88 Respiratory Rate 18 18 Blood Pressure 118/77 Pulse Oximetry 97 96 96 07/12/18 00:00 07/12/18 04:00 07/12/18 05:22 Temperature 98.3 F 98.5 F Pulse Rate 78 94 H 77 Respiratory Rate 17 17 Blood Pressure 139/66 153/67 H Pulse Oximetry 96 94 L 07/12/18 08:00 07/12/18 08:34 Temperature 98.0 F Pulse Rate 87 99 H Respiratory Rate 18 15 Blood Pressure 142/70 H Pulse Oximetry 100 99 Intake & Output 07/11/18 07/12/18 07/12/18 18:59 06:59 18:59 Intake Total 250 / 250 Output Total 800 / 800 360 / 360 Balance -550 / -550 -360 / -360 Intake: IV 250 / 250 Levaquin 750 mg Premix Inj 150 150 / 150 ML @ 100 mls/hr IV.SIG Q24H MARIANNE Rx#:[id number] Rocephin Inj 1,000 MG In NS Inj 100 / 100 100 ML @ 200 mls/hr IV.SIG Q24H MARIANNE Rx#:[id number] Output: Urine 800 / 800 360 / 360 Other: Date of Last Bowel Movement 07/11/18 Narrative: GENERAL: This is a thin appearing elderly male, in no apparent distress. SKIN: Warm and dry. HEENT: Normocephalic. Pupils equal round and reactive. Nose without bleeding. Airway patent. NECK: Trachea midline. Supple. CARDIOVASCULAR: Regular rate and rhythm without murmurs, gallops, or rubs. RESPIRATORY: Diminished bases. No wheezes, rales, or rhonchi. GASTROINTESTINAL: Abdomen soft, non-tender, nondistended. Bowel Sounds normoactive x4. MUSCULOSKELETAL: Extremities without clubbing, cyanosis, or edema. Left hip steristrips intact, guarded with ROM NEUROLOGICAL: Awake and alert. Oriented to place, person. Moves all extremities. Normal speech. Results Procedures completed during hospitalization: None Labs on day of discharge: Labs from last 24 hours 07/11/18 05:50 WBC Differential Manual diff final Seg Neuts % (Manual) 76 H Band Neuts % (Manual) 21 H Lymphocytes % (Manual) 3 L Abs Neuts (Manual) 4.7 Toxic Granulation 2+ H Platelet Estimate Low L Platelet Morphology Normal Ovalocytes 1+ H - Impressions ITS Impressions Chest X-Ray 07/09/18 17:26 CONCLUSION: No acute findings. Head CT 07/09/18 17:26 CONCLUSION: 1. No acute abnormality. 2. Atrophy. . Chest CT 07/10/18 00:00 CONCLUSION: Extensive COPD with area of cavitation in right apex of the lung not significantly changed. Right lower lobe airspace consolidation, slight infiltrate left lung base and small bilateral pleural effusions not present previously and pneumonia is a primary consideration. Discharge Plan - Discharge Disposition Patient Disposition: Discharge to SNF - Discharge Condition Condition: Stable - Discharge Order Discharge Orders: Discharge Order (Routine); Ordered 07/12/18 Ordered By: Zulema Bland - Physicians Team Primary Care Provider: Marie Rosas Attending Provider: Lili Rader Other Providers: [facility],Agency
[2018-07-12] MEDS: Folic Acid 1 MG Tablet PO SCH (09:33)
[2018-07-12] MEDS: Ferrous Sulfate 325 MG Tablet PO SCH (09:34)
[2018-07-12] MEDS: Senna/Docusate Sodium 8.6/50 MG Tablet PO SCH (09:35)
[2018-07-12] MEDS: DRONABINOL 2.5 MG CAPSULE PO SCH (09:35)
[2018-07-12] MEDS: Budesonide-Formoterol 160/4.5 MCG 6 GM Inhaler INH SCH (09:36)
[2018-07-12 11:57] VITALS: BP 145/81; PULSE 67; RESP 18; O2SAT 100
== END 2018-07-12 13:20 ==
LOC: NEPE 17:18 → NEDA 17:18 → NEPHCDU 07-10 01:23
PROVIDERS: ADMIT Hospitalist; ATTEND Hospitalist